=== PATIENT | female | born 1945 | race Caucasian/White ===

== ENCOUNTER → 2018-03-22 10:02 | Outpatient (CLI) | payer MEDICARE, OTHER, SELFPAY ==
--- NOTE | 2018-03-22 10:05 | BI_ITS ---
MAMMOGRAPHY - BILATERAL SCREENING REASON FOR EXAM: Female, 72 years old. Routine annual screening examination. PERTINENT HISTORY: Non-contributory. TECHNIQUE: Digital bilateral breast gris (3D mammographic acquisition) in the CC and MLO projections. 2-D mediolateral oblique (MLO) and craniocaudad (CC) views of both breasts were obtained. CAD: Full Field Digital Mammography with Computer Added Detection was performed. COMPARISON: Comparison is made with prior examination dated March 15, 2017 and March 05, 2016. FINDINGS: Breast Composition: There are scattered areas of fibroglandular density. There are no dominant masses or suspicious calcifications. Stable benign-appearing bilateral axillary lymph nodes. No other significant abnormalities are identified. There has been no significant change since the prior study. BI/SCREENING MAMM (CAD), BILAT IMPRESSION: Stable bilateral screening mammogram. Yearly follow-up mammogram recommended. (A) ASSESSMENT CATEGORY: BIRADS Category 2: Benign. A letter regarding these results will be sent to the patient by the facility within 30 days. Approximately 10% of breast cancers are not detected by mammography. A normal mammogram should not delay biopsy of a clinically suspicious abnormality. [id number] Electronically Signed: Oliver Hernandez MD at 13:55 EDT Tel [phone], Service support ,
== END ==
PROVIDERS: Family Provider Internal Medicine; PCP Internal Medicine; Visit Provider Clinical Nurse Specialist
DX: Z12.31 Encounter for screening mammogram for malignant neoplasm of breast (principal)
CPT/HCPCS: 77063; 77067

== ENCOUNTER 2019-03-02 13:45 | Inpatient (IN) | payer MEDICARE, OTHER, SELFPAY ==
[2019-03-02 13:46] VITALS: BP 122/74; PULSE 80; RESP 16; TEMP 36.9; O2SAT 98; BMI 30.1
--- NOTE | 2019-03-02 15:07 | VDLE_ITS ---
Reason For Study: RLE swelling RIGHT LEFT GSV is normal. CFV is compressible, spontaneous, phasic, CFV is compressible, spontaneous, phasic, competent, and demonstrates normal competent and demonstrates normal augmentation. augmentation. FV is compressible, spontaneous, phasic, competent and demonstrates normal augmentation. POP V is compressible, spontaneous, phasic, competent and demonstrates normal augmentation. T/P Trunk is compressible. PTV is compressible. RT PerV is compressible. NON vascular structure noted just below groin measuring 2.01 cm x 3.28 cm (near site of bug bite). Procedure Exam performed portable in ED. The exam was diagnostic. A preliminary report was called and/or faxed to ED & DR. Chaz Ortega. Interpretation Summary Deep veins of the right lower extremity are patent and compressible segmentally. There is no evidence of right lower extremity deep vein thrombosis. Valvular competence appears intact within the proximal deep venous system on the right . The right great saphenous vein appears patent and compressible segmentally. A non-vascular, hypoechoic structure is noted in the right proximal thigh, measuring 2.01 cm x 3.28 cm. This may represent a seroma. Clinical correlation is advised. Ordering Physician: Chaz Ortega Referring Physician: Olivia Mccall Performed By: Amber Mejia, DEB, RVT
--- NOTE | 2019-03-02 15:29 | ED.VISSUMM ---
- ER Visit Summary Date of Service: 03/02/19 Chief Complaint: Bug bite History of Present Illness: The patient is a 73 F presents after a bug bite. Patient states she was bitten by a bug over a week ago. Patient states that the area opened up a few days ago. Patient was started on Bactrim by her primary care physician. Patient states that 5 days ago she noticed redness and swelling in her right inguinal area. Patient states this is been getting progressively worse. Patient denies any fevers or chills. Patient denies any nausea or vomiting. Patient denies any discharge or drainage. Physical Examination: Vital signs are stable. Patient is afebrile. Patient is in no acute distress. There is some mild edema and erythema in the right inguinal area. There is no fluctuance or any abscess formation. There is no discharge or drainage. The bug bite on the posterior aspect of the right lower leg is healing well. There is no surrounding erythema at this site. Pedal pulses are equal bilaterally. Sensation was intact to light touch in all digits. Capillary refill was less than 2 seconds in all digits. Heart was regular rate and rhythm. Lungs are clear and equal bilaterally. Abdomen is soft and nontender. Bowel sounds are normal. Test Results: CBC shows slight leukocytosis of 15.0. BUN was elevated at 74 and creatinine was 3.43. Patient denies any history of kidney problems. There are no prior results to compare to. Venous duplex of the right lower extremity was obtained. There is no DVT noted. Emergency Department Course and Treatment: Patient was given IV fluids. Patient was given Ancef. Patient was feeling better on reevaluation. I discussed the results with the patient and advised that she be admitted to the hospital for further evaluation. She is agreeable with this. Case was discussed with the hospitalist. Patient will be admitted to the hospital. All questions were answered. Disposition: Admit to hospital Impression: 1. Acute kidney injury 2. Cellulitis right proximal thigh This note was generated with [employer] dictation software. It may contain incorrect words, spelling, and punctuation that were not noted in review of the chart prior to signing ED Disposition - Plan for ED Patient: Disposition: Acute Care Hospital [facility] Diagnosis: Cellulitis and abscess of right lower extremity, Acute kidney injury Referrals: Olivia Mccall MD [Primary Care Provider] -
[2019-03-02 15:48] VITALS: BP 136/78; PULSE 64; RESP 18; TEMP 36.2; O2SAT 99
[2019-03-02 16:00] VITALS: BP 137/78; PULSE 67; RESP 18; TEMP 36.2; O2SAT 99
[2019-03-02] MEDS: 0.9% Normal Saline 1,000 ML 1000 ML IV (16:03)
[2019-03-02 16:17] LABS: Prothrombin Time (Protime)PT. 12.8 SECONDS (11.7-14.9)
[2019-03-02 16:18] LABS: Absolute Lymphocyte Count 1.13 X10^3/uL (0.83-4.51); Absolute Neutrophil Count 12.8 X10^3/uL (2.0-7.7); Basophil# 0.02 X10^3/uL; Basophil% 0.1 % (0-1); Eosinophil# 0.36 X10^3/uL; Eosinophils% 2.4 % (0-5); Hematocrit 40.1 % (37-47); Hemoglobin 13.8 g/dL (12.0-15.0); Lymphocyte # 1.13 X10^3/ul (4.0); Lymphocyte % 7.5 % (19-41); Mean Corp Hgb Conc 34.4 g/dL (32-36); Mean Corpuscular Hgb 31.4 pg (27.0-32.0); Mean Corpuscular Volume 91.3 fL (81-99); Mean Platelet Vol. 11.9 fl (6.2-12.0); Monocyte# 0.59 X10^3/uL; Monocyte% 3.9 % (0-10); NRBC Flagged by Analyzer 0 % (0-5); Neutrophil # 12.82 X10^3/uL (2.7-7.7); Neutrophil % 85.4 % (47-70); POSITIVE MORPHOLOGY YES; Platelet Count 129 K/mm3 (150-450); RBC Distribution Width CV 12.6 % (11.6-14.6); RBC Distribution Width SD 41.8 fl (35.1-43.9); Red Blood Count 4.39 M/mm3 (4.2-5.4)
[2019-03-02 16:32] LABS: Differential Indicated SCAN CRITERIA MET
[2019-03-02 16:50] LABS: Anion Gap 13 (5-15); BUN 74 mg/dL (7-18); BUN/Creat Ratio 21.6 RATIO (10-20); Calcium,Total 8.2 mg/dL (8.5-10.1); Chloride 99 mmol/L (98-107); Creatinine, Serum 3.43 mg/dL (0.55-1.02); EST Glomerular Filtration Rate 14 mL/min (>60); Est Glom Filt Rate - Afr Amer 17 mL/min (>60); Estimated Creatinine Clearance 12.08 ml/min; Glucose 112 mg/dL (74-106); Sodium Level 132 mmol/L (136-145)
[2019-03-02 17:00] VITALS: BP 134/78; PULSE 67; RESP 18; TEMP 36.6; O2SAT 99
[2019-03-02 17:01] LABS: Differential Comment SCANNED
[2019-03-02] MEDS: Cefazolin 1 GM/50 ML BAG IV (18:17)
[2019-03-02 18:20] VITALS: BP 138/74; PULSE 67; RESP 18; TEMP 36.6; TEMP 36.9; O2SAT 99
[2019-03-02 19:05] VITALS: BMI 30.1
[2019-03-02 19:13] VITALS: BP 121/75; PULSE 91; RESP 14; TEMP 36.9; O2SAT 98
[2019-03-02 19:15] VITALS: BMI 30.1
--- NOTE | 2019-03-02 19:41 | PCM.HP.STD ---
Problem List (1) Cellulitis and abscess of right lower extremity Status: Acute (2) Acute kidney injury Status: Acute (3) Hypertension Status: Chronic Qualifiers: Hypertension type: essential hypertension Qualified Code(s): I10 - Essential (primary) hypertension History of Present Illness Date of Admission: 03/02/19 Chief Complaint: Redness of right leg, groin - 1 week The patient is a 73 year old F past medical history of hypertension, who had an insect bite a week ago. The area of the insect bite had some redness and she had follow-up with her primary care doctor 3 days later. She was prescribed Bactrim. She had persistent nausea and vomiting 2 days into her Bactrim. She felt unwell. She also noticed redness and swelling her right inguinal area 5 days prior to admission. She denied any fever or chills. She just did not feel well. She denied any more nausea or vomiting. The last time she had nausea and vomiting was 3 days ago. Vitals in the ED show temperature of 98.4F, heart rate 80, blood pressure 122/74, respiratory rate was 16, SPO2 was 98% on room air. Admitting blood pressure to BC count of 15.0, globin 13.8, platelet 129, sodium is 132, potassium 4.0, chloride 99, bicarbonate 20, BUN 74, creatinine 3.43, no other creatinine to compare with. Duplex ultrasound of the right lower extremity was done in the ED and reportedly no DVT seen. Past Medical History Past Medical History (Chronic Problems): Chronic Problems Hypertension (Chronic) Allergies No Known Allergies Allergy (Verified 03/02/19 13:46) Home Medications: Ambulatory Orders Medication Instructions Recorded Atenolol [Tenormin (beta jackie)] 50 mg PO DAILY 03/02/19 Biotin 1 mg PO DAILY 03/02/19 Citalopram Hydrobromide 40 mg PO DAILY 03/02/19 [Citalopram HBr] Potassium Chloride [Klor-Con 8] 8 meq PO DAILY 03/02/19 Smz/Tmp Ds [Bactrim Ds] 1 tab PO BID 03/02/19 Triamterene/Hydrochlorothiazid 1 tab PO DAILY 03/02/19 [Triamterene-Hctz 37.5-25 mg Tb] Turmeric Root Extract [Turmeric] 500 mg PO DAILY 03/02/19 Psychiatric History: No pertinent psych hx [employer] History: No pertinent [employer] history Lives: Spouse/ Significant Other Smoking Status: Never smoker Tobacco Use: Non-smoker, Secondhand Alcohol: Occasional Drugs: None Review of Systems Constitutional: Denies: Anorexia, Chills, Fever, Weakness, Weight Change, Fatigue Eyes: Denies: Blurred vision, Cataracts, Conjunctivae Inflammation, Double vision, Pain, Redness, Vision Change HEENT: Denies: Head Aches, Hearing Changes, Sinus Congestion, Sinus Drainage Cardiovascular: Denies: Chest Pain, Claudication, Orthopnea, Palpitations, Paroxysmal Noc. Dyspnea Respiratory: Denies: Cough, Hemoptysis, Shortness of breath at rest, Shortness of breath upon exertion, Sputum production Gastrointestinal: Denies: Abdominal Pain, Constipation, Nausea, Vomiting Genitourinary: Denies: Dysuria, Frequency Musculoskeletal: Denies: Joint Pain, Joint Tenderness Skin: Denies: Rash, Wounds Neurological: Denies: Numbness, Tingling, Focal weakness Psychiatric: Denies: Anxiety, Depression, Homicidal Ideations, Suicidal Ideations Endocrine: Denies: Change in Body Habitus, Heat/ Cold Intolerance Hematologic/ Lymphatic: Denies: Easy Bruising, Easy Bleeding VTE Information - Inpt Only VTE Present on Admission: No VTE Pharm Prophylaxis ordered?: Yes Patient Problems: Active and Suspected Problems Cellulitis and abscess of right lower extremity (Acute) Acute kidney injury (Acute) - Physical Exam General: Alert, Oriented x3, Cooperative, No apparent distress HEENT: Atraumatic, PERRLA, EOMI, Normocephalic Oral: Moist Mucosa Neck: Supple Lungs: Clear to auscultation, Normal air movement Cardiovascular: Regular rate, Regular Rhythm, Normal S1, Normal S2, No murmurs Abdomen: Bowel Sounds Present, Soft, Non Tender, Non-Distended, No Hepato-splenomegaly Extremities: No edema Skin: - - redness of the right lower extremity and groin. Scar of the right posterior leg almost healed. Musculoskeletal: No Tenderness to Palpation of Joints or Extremities Lymphatic: No Cervical, Supraclavicular, or Inguinal Adenopathy Neurological: Cranial nerves II-XII grossly intact, Neuro grossly intact Psych/Mental Status: Normal Affect, Appropriate Vital Signs Temp Pulse Resp BP Pulse Ox 98.5 F 91 14 121/75 H 98 03/02/19 19:13 03/02/19 19:13 03/02/19 19:13 03/02/19 19:13 03/02/19 19:13 Oxygen Delivery Method Room Air Weight: 77.11 kg Body Mass Index (BMI) 30.1 Intake and Output for Last 24 Hours 02/28/19 03/01/19 03/02/19 23:59 23:59 23:59 Intake Total 1050 / 1050 Balance 1050 / 1050 Laboratory Tests Past 24 Hrs 03/02/19 03/02/19 03/02/19 15:55 15:55 15:55 WBC 15.0 H RBC 4.39 Hgb 13.8 Hct 40.1 MCV 91.3 MCH 31.4 MCHC 34.4 RDW Std Deviation 41.8 RDW Coeff of Naeem 12.6 Plt Count 129 L MPV 11.9 Immature Gran % (Auto) 0.700 Neut % (Auto) 85.4 H Lymph % (Auto) 7.5 L [place] % (Auto) 3.9 Eos % (Auto) 2.4 Baso % (Auto) 0.1 Absolute Neuts (auto) 12.8 H Absolute Lymphs (auto) 1.13 Nucleated RBC % 0 Differential Comment SCANNED PT 12.8 INR 1.0 Sodium 132 L Potassium 4.0 Chloride 99 Carbon Dioxide 20.0 L Anion Gap 13 BUN 74 H Creatinine 3.43 H Estim Creat Clear Calc 12.08 Est GFR (MDRD) Af Amer 17 L Est GFR (MDRD) Non-Af 14 L BUN/Creatinine Ratio 21.6 H Glucose 112 H Calcium 8.2 L Assessment/Plan All Active Problems Cellulitis and abscess of right lower extremity (Acute) Acute kidney injury (Acute) 73 year old F with past medical history of hypertension, who had an insect bite a week ago comes in with feeling unwell and redness of the right leg and groin. 1. Right leg/groin cellulitis, with 1 SIRS criteria, WBC 15, no sepsis on admission failed outpatient therapy with Bactrim, given 1 dose of IV cefazolin in the ED Plan: Admit to Medr, monitor vitals closely, elevate right lower extremity, continue IV cefazolin 1g Q8 2. RODRIGUE, likely pre-renal from recent nausea/vomiting, unknown previous creatinine, Admitting creatinine was 3.43 Plan: Ultrasound the kidneys and bladder, urine studies, IV fluids, repeat blood work in a.m. 3. Hypertension, controlled, continue atenolol 4. Depression, on Celexa, stable, continue same meds 5. DVT PPx- Heparin SC Code Visit Inpatient E&M: 16221 Init Hosp L2
--- NOTE | 2019-03-02 21:08 | US_ITS ---
STUDY: RENAL ULTRASOUND - COMPLETE REASON FOR EXAM: Female, 73 years old. Acute renal failure TECHNIQUE: Ultrasound evaluation of the kidneys was performed with real-time and static tompkins-scale imaging. COMPARISON: None. FINDINGS: RIGHT KIDNEY: Normal location of the right kidney, which is normal in size. The right kidney measures 9.8 x 5.4 x 5.3 cm. There is a normal cortex of the right kidney. The renal cortex measures 1.2 cm. There is no right renal mass or cyst. There are no right renal calculi. There is no right hydronephrosis. DISTAL RIGHT URETER: There is non-visualization of the distal right ureter. There is no demonstrated right ureterovesical junction calculus. There is no demonstrated right ureteral jet. LEFT KIDNEY: Normal location of the left kidney, which is normal in size. The left kidney measures 9.9 x 5.0 x 4.2 cm. There is a normal cortex of the left kidney. The renal cortex measures 1.1 cm. There is no left renal mass or cyst. There are no left renal calculi. There is no left hydronephrosis. DISTAL LEFT URETER: There is non-visualization of the distal left ureter. There is no demonstrated left ureterovesical junction calculus. There is no demonstrated left ureteral jet. BLADDER: The distended urinary bladder has a volume of 123.77 ml. There is a normal wall thickness of the distended urinary bladder. There is no demonstrated mass within the urinary bladder. There are no demonstrated bladder calculi. US/Kidney and Bladder IMPRESSION: Normal ultrasound of the kidneys and urinary bladder. Electronically Signed: David Sandoval MD at 23:10 EDT Tel , Service support ,
[2019-03-02] MEDS: 0.9% Normal Saline 1,000 ML 100 ML IV (21:23)
[2019-03-02] MEDS: Heparin Injection (Vial) 5,000 UNIT/ML VIAL 5000 UNIT SC (21:23)
[2019-03-02 22:35] LABS: Urine Sodium 35 mmol/L (Not Establ.)
[2019-03-02 22:41] LABS: Urea Nitrogen, Urine 290 mg/dL (NO RANGE EST.)
[2019-03-03 02:06] VITALS: BP 140/77; PULSE 69; RESP 16; TEMP 36.6; O2SAT 92
[2019-03-03] MEDS: Heparin Injection (Vial) 5,000 UNIT/ML VIAL 5000 UNIT SC ×3 (06:19→21:09)
[2019-03-03 06:40] LABS: Absolute Lymphocyte Count 1.33 X10^3/uL (0.83-4.51); Absolute Neutrophil Count 9.9 X10^3/uL (2.0-7.7); Basophil# 0.09 X10^3/uL; Basophil% 0.7 % (0-1); Eosinophil# 0.47 X10^3/uL; Eosinophils% 3.7 % (0-5); Hematocrit 40.7 % (37-47); Hemoglobin 13.7 g/dL (12.0-15.0); Lymphocyte # 1.33 X10^3/ul (4.0); Lymphocyte % 10.5 % (19-41); Mean Corp Hgb Conc 33.7 g/dL (32-36); Mean Corpuscular Hgb 32.1 pg (27.0-32.0); Mean Corpuscular Volume 95.3 fL (81-99); Mean Platelet Vol. 11.7 fl (6.2-12.0); Monocyte# 0.62 X10^3/uL; Monocyte% 4.9 % (0-10); NRBC Flagged by Analyzer 0 % (0-5); Neutrophil % 78.4 % (47-70); POSITIVE COUNT YES; Platelet Count 99 K/mm3 (150-450); RBC Distribution Width CV 12.6 % (11.6-14.6); RBC Distribution Width SD 44.4 fl (35.1-43.9); Red Blood Count 4.27 M/mm3 (4.2-5.4); White Blood Count 12.6 K/mm3 (4.4-11.0)
[2019-03-03 06:46] LABS: Differential Indicated SCAN CRITERIA MET
[2019-03-03 07:03] LABS: Differential Comment SCAN; Platelet Estimate SLT DEC (ADEQ)
[2019-03-03 07:11] LABS: ALB/GLOB Ratio 0.6 RATIO (0.9-2.4); AST(SGOT) 21 U/L (15-37); Alanine Aminotransfer ALT/SGPT 23 U/L (13-56); Albumin, Serum 2.1 g/dL (3.2-5.0); Alkaline Phosphatase 148 U/L (45-117); Anion Gap 9 (5-15); BUN 58 mg/dL (7-18); BUN/Creat Ratio 26.4 RATIO (10-20); Calcium,Total 8.1 mg/dL (8.5-10.1); Chloride 111 mmol/L (98-107); EST Glomerular Filtration Rate 23 mL/min (>60); Est Glom Filt Rate - Afr Amer 28 mL/min (>60); Estimated Creatinine Clearance 18.01 ml/min; Globulin 3.3 g/dL (2.2-4.2); Glucose 94 mg/dL (74-106); Potassium 3.4 mmol/L (3.5-5.1); Protein, Total 5.4 g/dL (6.4-8.2); Sodium Level 140 mmol/L (136-145)
[2019-03-03 08:00] VITALS: BP 123/73; PULSE 66; RESP 18; TEMP 36.6; O2SAT 95
[2019-03-03] MEDS: 0.9% Normal Saline 1,000 ML 100 ML IV ×2 (08:06→18:20)
[2019-03-03] MEDS: Atenolol 50 MG Tablet PO (08:43)
[2019-03-03] MEDS: Citalopram 40 MG TABLET PO (08:43)
--- NOTE | 2019-03-03 12:48 | CM.UR ---
RN CM Assessment Introduced role of RN CM to patient. Patient is alert and able to participate in RN CM Assessment. Care providers, pharmacy, and demographics verified. No family at bedside. Presentation: bug bite w/site worsening Admit Dx: cellulitis and RODRIGUE Re-Admit: No Barriers/Issues: with dementia; has some caregiver stress. PCP: Dr. Mccall Preferred Pharmacy: [facility] Insurance: [facility] and MMO Rx Benefit: Yes, denies any concerns LNOK: , Tae Living Arrangements: lives in [address] [place] [address] with elevator. ADL?s: Independent Transportation: self DME: None DME co: Delbert Preciado is a close friend. Through him. HHC: None SNF: None Goal: To return home. Denies any needs for her. States she is going to need help with . Discussed adult day care vs private duty aides. DC PLAN: Home, no needs anticipated. Iens Trinidad RN, CCM.
--- NOTE | 2019-03-03 14:31 | CASEMGMT ---
Social Work Referral: Resources Informant: Maude ct manager Met with patient in room. Patient requesting resources for dementia/care assistance as patient spouse as dementia and things are getting harder. Patient stating that there are no current financial limitations. This social media assistant providing patient with list of private duty aides, director environmental pet information, and [employer] adult day care info. This social media assistant also able to provide support for patient. Patient identifying no needs for self. All questions answered. Argenis CRUZ, SIMONE
--- NOTE | 2019-03-03 17:17 | PN_ITS ---
Patient Problems: Active and Suspected Problems Cellulitis and abscess of right lower extremity (Acute) Acute kidney injury (Acute) Subjective: Patient was seen and examined today, she has an area of persistent redness in the right groin area, patient states she feels improved over admission, I talked to the patient's covering physician from [facility] today, her Danay creatinine was 1.16, her creatinine last month was 1.1. I think the patient may have had acute kidney injury secondary to use of Bactrim. I will continue the patient's IV fluids at 100 cc/h. - Physical Exam General: Alert, Oriented x3, Cooperative, No apparent distress, Well developed HEENT: Atraumatic, PERRLA, EOMI, Normocephalic Oral: Moist Mucosa Neck: Supple, Trachea Midline, Thyroid Normal Size and Texture Lungs: Clear to auscultation, Normal air movement, No rhonchi, No wheeze, No rales Cardiovascular: Regular rate, Regular Rhythm, Normal S1, Normal S2, No murmurs Abdomen: Bowel Sounds Present, Soft, Non Tender, Non-Distended Extremities: No clubbing, No cyanosis, No edema, Capillary Refill Less than 3 Seconds Skin: No breakdown, Rash Present - over area of 6X6 cm right groin area Musculoskeletal: No Tenderness to Palpation of Joints or Extremities Neurological: Cranial nerves II-XII grossly intact, Neuro grossly intact, Sensory exam intact to light touch and pain, Coordination normal Psych/Mental Status: Normal Affect, Appropriate, Alert and oriented to time, place, person, mood and affect Vital Signs Temp Pulse Resp BP Pulse Ox 97.9 F 66 18 123/73 H 95 03/03/19 08:00 03/03/19 08:00 03/03/19 08:00 03/03/19 08:00 03/03/19 08:00 Oxygen Delivery Method Room Air Weight: 78.9 kg Body Mass Index (BMI) 30.1 Intake and Output for Last 24 Hours 03/01/19 03/02/19 03/03/19 23:59 23:59 23:59 Intake Total 1050 / 1050 3018.33 / 3018.33 Output Total 1900 / 1900 Balance 1050 / 1050 1118.33 / 1118.33 Laboratory Tests Past 24 Hrs 08/23/19 08/23/19 08/23/19 22:20 22:20 22:20 WBC RBC Hgb Hct MCV MCH MCHC RDW Std Deviation RDW Coeff of Naeem Plt Count MPV Immature Gran % (Auto) Neut % (Auto) Lymph % (Auto) [place] % (Auto) Eos % (Auto) Baso % (Auto) Absolute Neuts (auto) Absolute Lymphs (auto) Nucleated RBC % Differential Comment Platelet Estimate Sodium Potassium Chloride Carbon Dioxide Anion Gap BUN Creatinine Estim Creat Clear Calc Est GFR (MDRD) Af Amer Est GFR (MDRD) Non-Af BUN/Creatinine Ratio Glucose Calcium Total Bilirubin AST ALT Alkaline Phosphatase Total Protein Albumin Globulin Albumin/Globulin Ratio Ur Random Sodium 35 Urine Creatinine 16.80 Urine Urea Nitrogen 290 03/03/19 03/03/19 06:20 06:20 WBC 12.6 H RBC 4.27 Hgb 13.7 Hct 40.7 MCV 95.3 MCH 32.1 H MCHC 33.7 RDW Std Deviation 44.4 H RDW Coeff of Naeem 12.6 Plt Count 99 L MPV 11.7 Immature Gran % (Auto) 1.800 H Neut % (Auto) 78.4 H Lymph % (Auto) 10.5 L [place] % (Auto) 4.9 Eos % (Auto) 3.7 Baso % (Auto) 0.7 Absolute Neuts (auto) 9.9 H Absolute Lymphs (auto) 1.33 Nucleated RBC % 0 Differential Comment SCAN Platelet Estimate SLT DEC Sodium 140 Potassium 3.4 L Chloride 111 H Carbon Dioxide 20.0 L Anion Gap 9 BUN 58 H Creatinine 2.20 H Estim Creat Clear Calc 18.01 Est GFR (MDRD) Af Amer 28 L Est GFR (MDRD) Non-Af 23 L BUN/Creatinine Ratio 26.4 H Glucose 94 Calcium 8.1 L Total Bilirubin 0.40 AST 21 ALT 23 Alkaline Phosphatase 148 H Total Protein 5.4 L Albumin 2.1 L Globulin 3.3 Albumin/Globulin Ratio 0.6 L Ur Random Sodium Urine Creatinine Urine Urea Nitrogen Medical Necessity - Tobacco Use Smoking Status: Never smoker Tobacco Use: Non-smoker, Secondhand Assessment/Plan All Active Problems Cellulitis and abscess of right lower extremity (Acute) Acute kidney injury (Acute) #1 cellulitis of the right groin area-failed outpatient treatment, continue IV Ancef #2 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
[2019-03-03 18:06] VITALS: BP 126/74; PULSE 65; RESP 18; TEMP 36.7; O2SAT 97
[2019-03-03 19:24] VITALS: BP 139/70; PULSE 67; RESP 16; TEMP 37.2; O2SAT 98
[2019-03-04 04:02] VITALS: BP 145/72; PULSE 69; RESP 18; TEMP 37; O2SAT 94
[2019-03-04] MEDS: 0.9% Normal Saline 1,000 ML 100 ML IV (04:07)
[2019-03-04] MEDS: Heparin Injection (Vial) 5,000 UNIT/ML VIAL 5000 UNIT SC (05:24)
[2019-03-04 06:06] LABS: Mean Corp Hgb Conc 32.4 g/dL (32-36); Mean Corpuscular Hgb 31.2 pg (27.0-32.0); Mean Corpuscular Volume 96.1 fL (81-99); POSITIVE COUNT YES; POSITIVE MORPHOLOGY YES; Platelet Count 131 K/mm3 (150-450); RBC Distribution Width CV 12.9 % (11.6-14.6); RBC Distribution Width SD 45.5 fl (35.1-43.9); Red Blood Count 3.85 M/mm3 (4.2-5.4); White Blood Count 12.1 K/mm3 (4.4-11.0)
[2019-03-04 06:07] LABS: Differential Indicated MANUAL DIFF
[2019-03-04 06:12] LABS: BUN 35 mg/dL (7-18); Creatinine, Serum 1.38 mg/dL (0.55-1.02); Estimated Creatinine Clearance 28.72 ml/min; Glucose 91 mg/dL (74-106)
[2019-03-04 06:13] LABS: Anion Gap 8 (5-15); BUN/Creat Ratio 25.4 RATIO (10-20); Calcium,Total 8.1 mg/dL (8.5-10.1); Chloride 111 mmol/L (98-107); EST Glomerular Filtration Rate 40 mL/min (>60); Est Glom Filt Rate - Afr Amer 48 mL/min (>60); Potassium 3.1 mmol/L (3.5-5.1); Sodium Level 144 mmol/L (136-145)
[2019-03-04 06:39] LABS: Eosinophil 5 % (0-5); Lymphocyte 16 % (19-41); Metamyelocyte 2 % (0-1); Monocyte 3 % (0-10); Neutrophil-Band 7 % (0-5); Neutrophil-Segmented 67 % (47-70); Platelet Estimate SLT DEC (ADEQ); Red Cell Morphology NORM C+C NORMAL (NORM C&C); Total Cells Counted 100 (MANUAL DIFF)
[2019-03-04 06:41] LABS: Absolute Lymphocyte Count 1.94 X10^3/uL (0.83-4.51)
[2019-03-04 08:15] VITALS: BP 135/77; PULSE 60; RESP 18; TEMP 36.6; O2SAT 98
[2019-03-04] MEDS: Atenolol 50 MG Tablet PO (10:01)
[2019-03-04] MEDS: Citalopram 40 MG TABLET PO (10:01)
--- NOTE | 2019-03-04 11:03 | DCINST_ITS ---
- Discharge Diagnoses Current Active Problems: Current Active and Chronic Problems Cellulitis and abscess of right lower extremity (Acute) Acute kidney injury (Acute) Hypertension (Chronic) You will use the following diet at home:: No restrictions Your food should be the consistency of: Regular Your liquids should be the consistency of: Regular/Thin Discharge Activity: Return to Normal Activity Weight Bearing Status: Full weight bearing Allergies/Adverse Reactions: Allergies No Known Allergies Allergy (Verified 03/02/19 13:46) Medications to take at Discharge Atenolol [Tenormin (beta jackie)] 50 mg PO DAILY 03/02/19 Biotin 1 mg PO DAILY 03/02/19 Citalopram Hydrobromide [Citalopram HBr] 40 mg PO DAILY 03/02/19 Turmeric Root Extract [Turmeric] 500 mg PO DAILY 03/02/19 Cefdinir [Omnicef [equiv]] 600 mg PO DAILY #14 cap 03/04/19 Losartan Potassium [Cozaar] 50 mg PO DAILY #90 tab 03/04/19 The following prescriptions were given: Losartan Potassium [Cozaar] 50 mg PO DAILY #90 tab Transmission Status: Pending to [id number] Cefdinir [Omnicef [equiv]] 600 mg PO DAILY #14 cap Transmission Status: Pending to [id number] Primary Care Physician: Olivia Mccall MD [Primary Care Provider] - Please follow up with your Primary Care Physician in: this week-get your BMP rechecked this week Test Results: Test results from this visit will be discussed in further detail at your follow- up appointment, if applicable.
[2019-03-07 09:09] LABS: Pathologist Review Reviewed
--- NOTE | 2019-03-07 20:20 | DS.PCM_ITS ---
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 She had been treated as an outpatient with Bactrim, she had had bouts of nausea and vomiting approximately 3 days prior. Patient had been on antibiotics a total of 4 days. Labs showed an elevated white blood cell count at 15, patient's creatinine was elevated at 3.43, BUN was 74. Emanation of the patient's right groin area and right proximal thigh area reveals it to be reddened indurated and warm. Patient was not felt to be septic however she was felt to have a cellulitis that failed outpatient treatment. She was also felt to have acute kidney injury-etiology was uncertain but may have been related to her back to administration on a backdrop of mild dehydration from vomiting several days previously. Patient was admitted to [place] [address], given IV antibiotics, and labs were monitored. It was noted that the patient's creatinine dropped during her hospital stay and she improved. She was also given supplemental potassium for low potassium. On 03/04/2019, patient was seen and examined: On examination she appeared in good health and spirits. Vital signs as documented. Skin warm and dry, there was noted to be a red rash in patient's right groin and proximal thigh area. Neck without JVD. Lungs clear. Heart exam notable for regular rhythm, normal sounds and absence of murmurs, rubs or gallops. Abdomen unremarkable and without evidence of organomegaly, masses, or abdominal aortic enlargement. Extremities nonedematous. Neuro: Cranial nerves II through XII are grossly intact, no focal motor deficits were noted, sensation to light touch and pinprick is intact. Psych: Patient is alert and oriented x3, she does not appear anxious or depressed On 03/04/2019, patient was seen and examined and felt to be in stable condition for discharge home. - Physical Exam Vital Signs Temp Pulse Resp BP Pulse Ox 97.8 F 60 18 135/77 H 98 03/04/19 08:15 03/04/19 08:15 03/04/19 08:15 03/04/19 08:15 03/04/19 08:15 Oxygen Delivery Method Room Air Weight: 79.6 kg Body Mass Index (BMI) 30.1 Laboratory Tests Past 24 Hrs 03/04/19 05:35 Diff Path Review Reviewed Discharge Activity: Return to Normal Activity Weight Bearing Status: Full weight bearing Home Medications: Medications to take at Discharge Atenolol [Tenormin (beta jackie)] 50 mg PO DAILY 03/02/19 Biotin 1 mg PO DAILY 03/02/19 Citalopram Hydrobromide [Citalopram HBr] 40 mg PO DAILY 03/02/19 Turmeric Root Extract [Turmeric] 500 mg PO DAILY 03/02/19 Cefdinir [Omnicef [equiv]] 600 mg PO DAILY #14 cap 03/04/19 Losartan Potassium [Cozaar] 50 mg PO DAILY #90 tab 03/04/19 Following Prescrptions Were Given to Patient: Losartan Potassium [Cozaar] 50 mg PO DAILY #90 tab Transmission Status: Received by [id number] Cefdinir [Omnicef [equiv]] 600 mg PO DAILY #14 cap Transmission Status: Received by [id number] Primary Care Physician: Olivia Mccall MD [Primary Care Provider] - Please follow up with your Primary Care Physician in: this week-get your BMP rechecked this week Disposition: Home Minutes spent on discharge:: 32 Patient Condition:: Stable Medical Necessity - Tobacco Use Smoking Status: Never smoker Tobacco Use: Non-smoker, Secondhand Meaningful Use Info Meaningful Use Diagnoses (Choose all that apply): None applicable Code Visit Inpatient E&M: 34438 Disch Hosp
== END 2019-03-04 11:48 | disposition home or self-care (01) | DRG 603 ==
LOC: ED 18:23 → MS3 18:26
PROVIDERS: Admitting Provider Internal Medicine; Emergency Provider Emergency Medicine; Family Provider Internal Medicine; PCP Internal Medicine; Referring Provider Internal Medicine; Visit Provider Internal Medicine
DX: L03.314 Cellulitis of groin (principal); N17.9 Acute kidney failure, unspecified; N12 Tubulo-interstitial nephritis, not specified as acute or chronic; I10 Essential (primary) hypertension; F32.9 Major depressive disorder, single episode, unspecified; T36.8X5A Adverse effect of other systemic antibiotics, initial encounter
CPT/HCPCS: 36415; 76770; 80048; 80053; 82570; 84300; 84540; 85025; 85610; 93971; 99285; J7030

== ENCOUNTER → 2019-05-04 09:57 | Outpatient (CLI) | payer MEDICARE, OTHER, SELFPAY ==
--- NOTE | 2019-05-04 10:05 | BI_ITS ---
MAMMOGRAPHY - BILATERAL SCREENING REASON FOR EXAM: Female, 73 years old. Routine annual screening examination. PERTINENT HISTORY: Non-contributory. TECHNIQUE: Digital bilateral breast ronn (3D mammographic acquisition) in the CC and MLO projections. 2-D mediolateral oblique (MLO) and craniocaudad (CC) views of both breasts were obtained. CAD: Full Field Digital Mammography with Computer Added Detection was performed. COMPARISON: Comparison is made with prior study dated March 22, 2018 and March 15, 2017. FINDINGS: Breast Composition: There are scattered areas of fibroglandular density. There are no dominant masses or suspicious calcifications. Stable small benign-appearing bilateral axillary lymph nodes. No other significant abnormalities are identified. There has been no significant change since the prior study. BI/SCREEN MAMM (CAD) W/RONN BILAT IMPRESSION: Stable bilateral screening mammogram. Yearly follow-up mammogram recommended. (A) ASSESSMENT CATEGORY: BIRADS Category 2: Benign. A letter regarding these results will be sent to the patient by the facility within 30 days. Approximately 10% of breast cancers are not detected by mammography. A normal mammogram should not delay biopsy of a clinically suspicious abnormality. [id number] Electronically Signed: Oliver Hernandez, at 13:27 EDT , Service support ,
== END ==
PROVIDERS: Family Provider Internal Medicine; PCP Internal Medicine; Referring Provider Nurse Practitioner; Visit Provider Nurse Practitioner
DX: Z12.31 Encounter for screening mammogram for malignant neoplasm of breast (principal)
CPT/HCPCS: 77063; 77067

== ENCOUNTER → 2019-06-25 08:58 | Outpatient (CLI) | payer MEDICARE, OTHER, SELFPAY ==
[2019-06-25 08:54] VITALS: BMI 30.1
--- NOTE | 2019-06-25 09:02 | RAD_ITS ---
STUDY: X-RAY - LEFT FOOT CLINICAL: Female, 73 years old. Pain and swelling with redness TECHNIQUE: 3 view(s) of the foot. COMPARISON: None. FINDINGS: Normal talus, calcaneus, and tarsal bones. Normal visualized subtalar, talonavicular, calcaneocuboid, tarsal and tarsometatarsal articulations. Normal metatarsi. Normal metatarsophalangeal joint of the great toe. Normal tibial and fibular sesamoid bones. Normal interphalangeal joint of the great toe. Normal phalanges of the great toe. Normal second through fifth metatarsophalangeal joints. Normal interphalangeal joints and phalanges of the lesser toes. There is soft tissue swelling of the forefoot. RAD/Foot min 3 Views IMPRESSION: Forefoot soft tissue swelling without demonstrated fracture. Electronically Signed: Hamlet Espitia MD (Brooks) at 22:32 EST , Service support ,
== END ==
PROVIDERS: Family Provider Internal Medicine; PCP Internal Medicine; Referring Provider Physician Assistant; Visit Provider Physician Assistant
DX: M79.675 Pain in left toe(s) (principal); M79.89 Other specified soft tissue disorders
CPT/HCPCS: 73630

== ENCOUNTER → 2020-06-23 10:25 | Outpatient (CLI) | payer MEDICARE, OTHER, SELFPAY ==
[2019-06-25 08:54] VITALS: BMI 30.1
--- NOTE | 2020-06-23 10:32 | BI_ITS ---
MAMMOGRAPHY - BILATERAL SCREENING REASON FOR EXAM: Female, 74 years old. Routine annual screening examination. PERTINENT HISTORY: Non-contributory. TECHNIQUE: Digital bilateral breast ronn (3D mammographic acquisition) in the CC and MLO projections. 2-D mediolateral oblique (MLO) and craniocaudad (CC) views of both breasts were obtained. CAD: Full Field Digital Mammography with Computer Added Detection was performed. COMPARISON: Comparison is made with prior study dated 05/04/2019 and 03/22/2018. FINDINGS: Breast Composition: The breasts are heterogeneously dense, which may obscure small masses. There are no dominant masses or suspicious calcifications. Stable benign-appearing bilateral axillary lymph nodes. No other significant abnormalities are identified. There has been no significant change since the prior study. BI/SCREEN MAMM (CAD) W/RONN BILAT IMPRESSION: Stable bilateral screening mammogram. Yearly follow-up mammogram recommended. (A) ASSESSMENT CATEGORY: BIRADS Category 2: Benign. A letter regarding these results will be sent to the patient by the facility within 30 days. Approximately 10% of breast cancers are not detected by mammography. A normal mammogram should not delay biopsy of a clinically suspicious abnormality. [id number] Electronically Signed: Oliver Hernandez, at 12:11 EST , Service support ,
== END ==
PROVIDERS: PCP Internal Medicine; Referring Provider Nurse Practitioner Primary Care; Visit Provider Nurse Practitioner Primary Care
DX: Z12.31 Encounter for screening mammogram for malignant neoplasm of breast (principal)
CPT/HCPCS: 77063; 77067

== ENCOUNTER 2020-09-03 11:44 | Outpatient (RCR) | payer MEDICARE, OTHER, SELFPAY ==
[2019-06-25 08:54] VITALS: BMI 30.1
== END 2020-09-03 23:59 ==
LOC: IMMUN 11:44
PROVIDERS: PCP Internal Medicine; Referring Provider Family Medicine; Visit Provider Family Medicine
DX: Z23 Encounter for immunization (principal)
CPT/HCPCS: 0011A; 0012A; 91301

== ENCOUNTER 2021-07-28 08:40 | Outpatient (CLI) | payer MEDICARE, OTHER, SELFPAY ==
--- NOTE | 2021-07-28 08:43 | BI_ITS ---
MAMMOGRAPHY - BILATERAL SCREENING REASON FOR EXAM: Female, 75 years old. Routine annual screening examination. PERTINENT HISTORY: Non-contributory. TECHNIQUE: Digital bilateral breast ronn (3D mammographic acquisition) in the CC and MLO projections. 2-D mediolateral oblique (MLO) and craniocaudad (CC) views of both breasts were obtained. CAD: Full Field Digital Mammography with Computer Added Detection was performed. COMPARISON: Comparison is made with prior study dated 06/23/2020 and 05/04/2019. FINDINGS: Breast Composition: The breasts are heterogeneously dense, which may obscure small masses. There are no dominant masses or suspicious calcifications. No other significant abnormalities are identified. There has been no significant change since the prior study. BI/SCRN MAMM (CAD)W/RONN BILAT IMPRESSION: Stable bilateral screening mammogram. Yearly follow-up mammogram recommended. (A) ASSESSMENT CATEGORY: BIRADS Category 1: Negative. A letter regarding these results will be sent to the patient by the facility within 30 days. Approximately 10% of breast cancers are not detected by mammography. A normal mammogram should not delay biopsy of a clinically suspicious abnormality. [id number] Electronically Signed: Oliver Hernandez MD at 11:04 EST , Service support ,
--- NOTE | 2021-07-28 09:17 | BD_ITS ---
STUDY: DUAL ENERGY X-RAY ABSORPTIOMETRY / DXA REASON FOR EXAM: Female, 75 years old. Z780. The patient is postmenopausal. TECHNIQUE: Bone Mineral Density (BMD) measurements of lumbar spine and bilateral hips were obtained. COMPARISON: Comparison is made with prior study dated 01/17/2013. FINDINGS: Lumbar Spine (L1-L4): g/cm2 (1.203) / T-score (1.4) / Z-score (3.9) Findings are suggestive of normal bone density with a low fracture risk. Left Femur Total: g/cm2 (0.906) / T-score (-0.3) / Z-score (1.5) Left Femoral Neck: g/cm2 (0.797) / T-score (-0.5) / Z-score (1.6) Right Femur Total: g/cm2 (0.934) / T-score (-0.1) / Z-score (1.8) Right Femoral Neck: g/cm2 (0.810) / T-score (-0.4) / Z-score (1.8) The T-Scores on the most recent prior examination were: Lumbar Spine (L1-L4): There has been improvement of bone density since the previous examination. Left Femur Total: which represents a worsening of 10.9%. Right Femur Total: which represents a worsening of 6.1%. BD/Dexa Bone Density Study IMPRESSION: The patient is considered normal as outlined below according to World Reza Organization (WHO) criteria with a low fracture risk. There has been worsening of bone density since the previous examination. Reference Information: The T-score is the number of standard deviations above or below the standard which is normal for young adults at their peak bone mineral density. The World Health Organization (WHO) interprets the T-scores as follows: Above -1 Normal bone density Between -1 and -2.5 Osteopenia Equal to / or below -2.5 Osteoporosis As a practical clinical guideline, osteopenia may be graded as follows: Mild -1 through -1.5 Moderate -1.6 through -2.0 Severe -2.1 through -2.4 The Z-score is the number of standard deviations above or below age-matched controls. A Z-score of less than -1.5 would be considered abnormal. References: 1. NIH Osteoporosis and Related Bone Diseases www osteo.org 2. International Society for Clinical Densitometry www iscd.org 3. National Osteoporosis Foundation www nof.org Electronically Signed: Oliver Hernandez MD at 9:05 EST , Service support ,
== END 2021-07-28 23:59 | disposition short-term general hospital (02) ==
PROVIDERS: PCP Internal Medicine; Referring Provider Internal Medicine; Visit Provider Internal Medicine
DX: Z12.31 Encounter for screening mammogram for malignant neoplasm of breast (principal); Z78.0 Asymptomatic menopausal state
CPT/HCPCS: 77063; 77067; 77080

== ENCOUNTER 2022-05-25 07:57 | Outpatient (RCR) | payer SELFPAY | END 2022-06-09 23:59 | LOC: NS 07:57 | PROVIDERS: PCP Internal Medicine | DX: Z71.3 Dietary counseling and surveillance (principal); E66.9 Obesity, unspecified | CPT/HCPCS: 97802 ==

== ENCOUNTER 2022-07-20 09:19 | Outpatient (RCR) | payer SELFPAY | END 2022-08-10 23:59 | LOC: NS 09:19 | PROVIDERS: PCP Internal Medicine | DX: Z00.00 Encounter for general adult medical examination without abnormal findings (principal) | CPT/HCPCS: 97803 ==

== ENCOUNTER → 2022-07-29 | Outpatient (CLI) | payer MEDICARE, OTHER, SELFPAY ==
--- NOTE | 2022-07-29 08:59 | BI_ITS ---
MAMMOGRAPHY - BILATERAL SCREENING REASON FOR EXAM: Female, 76 years old. Routine annual screening examination. PERTINENT HISTORY: Non-contributory. TECHNIQUE: Digital bilateral breast ronn (3D mammographic acquisition) in the CC and MLO projections. 2-D mediolateral oblique (MLO) and craniocaudad (CC) views of both breasts were obtained. CAD: Full Field Digital Mammography with Computer Added Detection was performed. COMPARISON: Comparison is made with prior study dated 07/28/2021 and 06/23/2020. FINDINGS: Breast Composition: The breasts are heterogeneously dense, which may obscure small masses. Since prior study, there has been an increase in the number of microcalcifications in the upper deep lateral aspect of the right breast. The patient will be recalled for additional views including magnification spot views. No other significant abnormalities are identified. BI/SCRN MAMM (CAD)W/RONN BILAT IMPRESSION: Increase in the number of microcalcifications in the upper outer quadrant of the right breast as described. The patient will be recalled for additional views including magnification spot views. Recall Side: Right Breast ASSESSMENT CATEGORY: BIRADS Category 0: Incomplete. Need additional imaging evaluation. A letter regarding these results will be sent to the patient by the facility within 30 days. Approximately 10% of breast cancers are not detected by mammography. A normal mammogram should not delay biopsy of a clinically suspicious abnormality. [id number] Electronically Signed: Oliver Hernandez MD at 10:06 EST ,
== END | disposition home or self-care (01) ==
LOC: OPBI 08:57
PROVIDERS: PCP Internal Medicine; Visit Provider Clinical Nurse Specialist
DX: Z12.31 Encounter for screening mammogram for malignant neoplasm of breast (principal)
CPT/HCPCS: 77063; 77067

== ENCOUNTER → 2022-08-16 | Outpatient (CLI) | payer MEDICARE, OTHER, SELFPAY ==
--- NOTE | 2022-08-16 08:56 | BI_ITS ---
MAMMOGRAPHY - UNILATERAL DIAGNOSTIC: RIGHT BREAST REASON FOR EXAM: Female, 76 years old. Abnormal screening mammogram. PERTINENT HISTORY: Non-contributory. TECHNIQUE: Compression magnification spot views of the right breast were obtained. CAD: Full Field Digital Mammography with Computer Added Detection was performed. COMPARISON: Comparison is made with prior study dated 07/29/2022. FINDINGS: The cluster microcalcification was once again seen. A biopsy is recommended for further evaluation. BI/DIAG MAMM W/CAD, UNILAT IMPRESSION: Cluster microcalcification as described. Biopsy recommended. ASSESSMENT CATEGORY: BIRADS Category 4: Suspicious - Biopsy Should Be Considered. A letter regarding these results will be sent to the patient by the facility within 30 days. Approximately 10% of breast cancers are not detected by mammography. A normal mammogram should not delay biopsy of a clinically suspicious abnormality. Electronically Signed: Oliver Hernandez MD at 14:04 EST ,
== END | disposition home or self-care (01) ==
LOC: OPBI 08:52
PROVIDERS: PCP Internal Medicine; Visit Provider Clinical Nurse Specialist
DX: R92.8 Other abnormal and inconclusive findings on diagnostic imaging of breast (principal)
CPT/HCPCS: 77065

== ENCOUNTER 2022-08-17 11:32 | Outpatient (RCR) | payer SELFPAY | END 2022-09-07 23:59 | LOC: NS 11:32 | PROVIDERS: PCP Internal Medicine | DX: Z71.3 Dietary counseling and surveillance (principal) | CPT/HCPCS: 97803 ==

== ENCOUNTER 2022-08-26 12:22 | Outpatient (CLI) | payer MEDICARE, OTHER, SELFPAY ==
--- NOTE | 2022-08-26 12:45 | BRBX_PTH ---
PATIENT: NATE CEJA LOC: [facility] U#:[id number] AGE/SX: 76/F ROOM: RE08/26/[address]: Dr. Nicki Strong MD : 1945 BED: DIS: 08/26/2022 SPEC #: [id number] RECD: 08/26/22 13:16 STATUS: ZAFAR REHanny #: [id number] ASHLEY: 08/26/22 12:[address]: Nicki Strong DEPT: SURGICAL PATHOLOGY RECD BY: Britany Cao ENTERED: 08/26/22 14:03 SP TYPE: BREAST BX OT DR: Dr. Olivia Mccall MD Tissues: Right breast, NOS Procedures: Surgery Specimen Level IV HEADER OPERATION: Right breast stereotactic biopsy PRE-OP DIAGNOSIS: Clustered microcalcifications right breast upper outer quadrant TISSUE SUBMITTED: Right breast core tissue ISCHEMIC TIME: 1 minute FIXATION TIME: 7 hours MICROSCOPIC DIAGNOSIS Right breast, microcalcifications upper outer quadrant, stereotactic core biopsy: Hyalinized fibroadenoma with focal calcifications. Negative for atypia or malignancy. See comment. SHERRY:yamileth 08/27/2022 COMMENT Correlation with clinical, radiologic findings and appropriate follow up are necessary. MICROSCOPIC DESCRIPTION Slides are reviewed. GROSS DESCRIPTION Received in fixative is one container labeled with the patient's name and designated right breast. The specimen consists of multiple elongated fragments of olsen-yellow fibroadipose tissue that in aggregate measure 5.0 x 3.0 x 0.3 cm. The entire specimen is submitted in two cassettes. / SHERRY:yamileth 08/26/2022 TC:1 CPT: 23809
--- NOTE | 2022-08-26 12:59 | PCM.OPRPT ---
Report of Operation Date of Procedure: 08/26/22 Pre-Operative Diagnosis: Right breast microcalcifications Post-Operative Diagnosis: Same Surgery/Procedure Performed:: Stereotactic guided right breast biopsy Surgeon: Nicki Strong Type of Anesthesia: Local Specimen's removed: Right breast upper outer microcalcifications Estimated Blood Loss (mL): < 10 cc Description of Procedure: Procedure: Right stereotactic core biopsy Indications: 76year-old female with microcalcifications in the upper outer of the right breast. Risk benefits were discussed the patient and she elected to proceed with stereotactic core biopsy with clip placement Description of procedure: Patient was brought into the mammography suite and laid prone on the stereotactic table. A timeout was completed verifying correct patient, procedure, site, specially, prior to beginning procedure. The right breast was prepped and draped in usual sterile fashion and using local anesthesia was obtained with 1% lidocaine with epi. Patient's right breast was positioned and placed into compression. Initial film showed calcifications are in the center of the compression paddle. 15? views were then taken. The calcifications were localized. The left breast was prepped draped in usual sterile fashion. An 8-gauge mammotome was set up according to the digital coordinates. The tract of the mammotome was anesthetized with local anesthesia and an incision was made with the 11 blade scalpel at the entry site. The mammotome was advanced to the prefire state. Pre-prior films were checked and verified. The mammotome was fired. Post fire films were also checked and verified. Biopsies were taken from 10:00 to 3:00. The specimen was x-rayed and the majority of calcifications were within the specimen. Mammotome clip was placed at the 12 o'clock position. The mammotome was removed from the breast. An additional films were taken which showed the majority of calcifications were removed and a clip was in place. Pressure was held for hemostasis. Once hemostasis was assured the wound was dressed with Steri-Strips and OpSite. The patient tolerated the procedure well and was discharged from the mammography suite good condition. complications: none Complications none
== END 2022-08-26 23:59 | disposition home or self-care (01) ==
LOC: BIRAD 12:24
PROVIDERS: PCP Internal Medicine; Visit Provider Surgery
DX: D24.1 Benign neoplasm of right breast (principal); R92.0 Mammographic microcalcification found on diagnostic imaging of breast
CPT/HCPCS: 19081; 88305; J7050; A4648

== ENCOUNTER → 2023-09-02 | Outpatient (CLI) | payer MEDICARE, OTHER, SELFPAY ==
--- NOTE | 2023-09-02 07:04 | BI_ITS ---
MAMMOGRAPHY - BILATERAL SCREENING REASON FOR EXAM: Female, 77 years old. Routine annual screening examination. PERTINENT HISTORY: Non-contributory. Prior right stereotactic breast biopsy. TECHNIQUE: Digital bilateral breast ronn (3D mammographic acquisition) in the CC and MLO projections. 2-D mediolateral oblique (MLO) and craniocaudad (CC) views of both breasts were obtained. CAD: Full Field Digital Mammography with Computer Added Detection was performed. COMPARISON: Comparison is made with prior examination dated July 29, 2022) separate 2022. FINDINGS: Breast Composition: The breasts are heterogeneously dense, which may obscure small masses. There are no dominant masses or suspicious calcifications. Dictation clip marker is seen in the deep upper lateral aspect of the right breast at the site of previous microcalcifications. The number of microcalcifications at the decreased. Stable small benign-appearing bilateral axillary lymph nodes. No other significant abnormalities are identified. There has been no significant change since the prior study. BI/SCRN MAMM (CAD)W/RONN BILAT IMPRESSION: Stable bilateral screening mammogram. Status post stereotactic biopsy of the cluster of microcalcifications in the deep upper lateral aspect of the right breast. Yearly follow-up mammogram recommended. (A) ASSESSMENT CATEGORY: BIRADS Category 2: Benign. A letter regarding these results will be sent to the patient by the facility within 30 days. Approximately 10% of breast cancers are not detected by mammography. A normal mammogram should not delay biopsy of a clinically suspicious abnormality. [id number] Electronically Signed: Oliver Hernandez MD at 8:40 EST ,
--- OUTSIDE RECORDS SUMMARY | 2023-09-02 07:15 | XMS RPT_ITS | CCD ---
Author Name Unknown Address [address] [place] [address] Organization [facility] Care Team Providers Care Copier Field Service Technician Name Role Phone Margo Mccall MD Primary Care Provider Chetan Chao MD Unavailable Chetan Chao MD Unavailable Marya PT, Eileen Unavailable Margo Mccall MD Primary Care Provider Chetan Chao MD Unavailable [phone] Chetan Chao MD Unavailable TALAMPAS, MARGO D Primary Care Unavailable CARLOS SAINI Attending Unavailable TALAMPAS, MARGO D Referring Unavailable TALAMPAS, MARGO D Primary Care Unavailable FREDDY FREEMAN Attending Unavailable TALAMPAS, MARGO D Attending Unavailable TALAMPAS, MARGO D Primary Care Unavailable MAY, LAUREN Referring Unavailable TALAMPAS, MARGO D Primary Care Unavailable TALAMPAS, MARGO D Primary Care Unavailable CARLOS SAINI Attending Unavailable MAY, LAUREN Attending Unavailable TALAMPAS, MARGO D Primary Care Unavailable TALAMPAS, MARGO D Primary Care Unavailable MAY, LAUREN Referring Unavailable Allergies Allergy Classification Reported Allergen(s) Allergy Type Date of Onset Reaction(s) Facility (20 sources) Dust; Translations: [DUST] Allergy to substance 12-17-19 15 Other: See Comments [facility] (20 sources) Sulfamethoxazole / Trimethoprim; Translations: [SULFAMETHOXAZOLE-TR IMETHOPRIM] Drug Allergy 03-08-20 19 Other: See Comments [facility] Work Phone: (20 sources) Tree; Translations: [TREES] Allergy to substance 12-17-19 Other: See Comments [facility] Medications Current Medications Medication Drug Class(es) Dates Sig (Normalized) Sig (Original) amoxicillin 875 mg / clavulanate 125 mg oral tablet (3 sources) Penicillin-class Antibacterial Start: 10-20-2021 End: 10-27-2021 take 1 tablet by mouth twice daily amoxicillin-clav ulanic acid (AUGMENTIN) 875-125 mg per tablet Take 1 tablet by mouth twice daily for 3 days. 6 tablet 0 10/23/2021 10/26/2021 Active Completed/Discontinued Medications Medication Drug Class(es) Dates Sig (Normalized) Sig (Original) [id number] 200 actuat albuterol 0.09 mg/actuat metered dose inhaler (9 sources) beta2-Adrenergic Agonist Start: 07-19-2022 End: 05-20-2023 take 2 puff(s) by inhalation every six hours as needed for wheezing albuterol HFA (PROVENTIL HFA, VENTOLIN HFA) 90 mcg/actuation inhaler Inhale 2 Puffs as instructed every 6 hours as needed for wheezing/shortness of breath. 1 Each 1 07/19/2022 05/20/2023 Discontinued Problems Active Problems Problem Classification Problem Date Documented Date Episodic/Chronic Administrative/social admission (2 sources) Caregiver role strain; Translations: [Dependent relative needing care at home] Episodic Anxiety disorders (20 sources) Generalized anxiety disorder; Translations: [Generalized anxiety disorder] 08-01-2019 Chronic Cataract (1 source) Bilateral cataracts; Translations: [Unspecified cataract] Chronic Chronic kidney disease (20 sources) Chronic kidney disease stage 3; Translations: [CKD (chronic kidney disease) stage 3, GFR 30-59 ml/min] Onset: 12-10-2017 12-10-2017 Chronic Disorders of lipid metabolism (4 sources) Hyperlipidemia; Translations: [Hyperlipidemia, unspecified] Onset: 05-17-2023 Chronic Essential hypertension (20 sources) Essential hypertension; Translations: [Essential (primary) hypertension] 09-03-2015 Chronic Nutritional deficiencies (6 sources) Vitamin D deficiency; Translations: [Vitamin D deficiency, unspecified] Onset: 05-17-2023 Chronic Osteoarthritis (20 sources) Osteoarthritis of left knee joint; Translations: [Unilateral primary osteoarthritis, left knee] Onset: 08-01-2019 08-01-2019 Chronic Other and unspecified benign neoplasm (1 source) Multiple benign melanocytic nevi ; Translations: [Melanocytic nevi, unspecified] Episodic Other and unspecified benign neoplasm (1 source) Senile angioma; Translations: [Hemangioma of skin and subcutaneous tissue] Episodic Other congenital anomalies (20 sources) Congenital ichthyosis of skin; 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, unspecified] 06-16-2007 Chronic Other connective tissue disease (20 sources) History of total knee arthroplasty; Translations: [Presence of left artificial knee joint] Onset: 09-20-2019 09-21-2019 Chronic Other connective tissue disease (2 sources) Dupuytren contracture of right palm; Translations: [Palmar fascial fibromatosis [Dupuytren]] Episodic Other connective tissue disease (1 source) Triggering of digit; Translations: [Trigger finger, right middle finger] Episodic Other hematologic conditions (1 source) Macrocytosis - no anemia; Translations: [Other specified diseases of blood and blood-forming organs] Chronic Other non-epithelial cancer of skin (1 source) History of malignant neoplasm of skin excluding melanoma; Translations: [Personal history of other malignant neoplasm of skin] Episodic Other nutritional; endocrine; and metabolic disorders (3 sources) Hypercalcemia; Translations: [Hypercalcemia] Chronic Other nutritional; endocrine; and metabolic disorders (1 source) Body mass index 30+ - obesity; Translations: [Obesity, unspecified] 05-19-2023 Chronic Other screening for suspected conditions (not mental disorders or infectious disease) (2 sources) Mammography abnormal; Translations: [Other abnormal and inconclusive findings on diagnostic imaging of breast] Episodic Other skin disorders (1 source) Seborrheic keratosis; Translations: [Other seborrheic keratosis] Episodic Other skin disorders (1 source) Solar lentigo; Translations: [Other melanin hyperpigmentation] Episodic Other upper respiratory disease (20 sources) Allergic rhinitis; Translations: [Allergic rhinitis, unspecified] 05-14-2016 Chronic Other upper respiratory infections (1 source) Chronic sinusitis; Translations: [Chronic sinusitis, unspecified] 08-14-2023 Chronic Other upper respiratory infections (1 source) Acute maxillary sinusitis; Translations: [Acute maxillary sinusitis, unspecified] Episodic Residual codes; unclassified (1 source) Family history of malignant melanoma; Translations: [Family history of malignant neoplasm of other organs or systems] Episodic Retinal detachments; defects; vascular occlusion; and retinopathy (9 sources) Degenerative disorder of macula ; Translations: [Unspecified macular degeneration] Onset: 11-15-2022 Chronic Past or Other Problems Problem Classification Problem Date Documented Da te Episodic/Chronic Acute and unspecified renal failure (20 sources) Acute injury of kidney; Translations: [Acute kidney failure, unspecified] Onset: 03-08-2019 03-08-2019 Episodic Cancer of rectum and anus (20 sources) History of malignant neoplasm of rectum; Translations: [Personal history of other malignant neoplasm of rectum, rectosigmoid junction, and anus] Onset: 08-01-2019 08-01-2019 Episodic Melanomas of skin (20 sources) History of malignant melanoma of the skin; Translations: [Personal history of malignant melanoma of skin] Onset: 02-14-2013 02-14-2013 Episodic Other aftercare (20 sources) Patient encounter status; Translations: [Other care home (current) drug therapy] Onset: 01-03-2013 01-03-2013 Episodic Other connective tissue disease (1 source) Palmar fascial fibromatosis [Dupuytren]; Translations: [Dupuytren's contracture of right hand] Onset: 12-02-2022 Episodic Other gastrointestinal disorders (20 sources) Groin mass; Translations: [Other intra-abdominal and pelvic swelling, mass and lump] Onset: 09-25-2014 09-25-2014 Episodic Other nutritional; endocrine; and metabolic disorders (4 sources) Body mass index 25-29 - overweight; Translations: [Body mass index (BMI) 28.0-28.9, adult] Onset: 05-28-2017 08-01-2019 Episodic Other nutritional; endocrine; and metabolic disorders (16 sources) Overweight in adulthood with body mass index of 25 or more but less than 30; Translations: [Body mass index (BMI) 28.0-28.9, adult] Onset: 05-28-2017 08-01-2019 Episodic Residual codes; unclassified (20 sources) Bilateral lower limb edema; Translations: [Localized edema] Onset: 08-01-2019 08-01-2019 Episodic Skin and subcutaneous tissue infections (20 sources) Cellulitis of groin; Translations: [Cellulitis of groin] Onset: 03-08-2019 03-08-2019 Episodic Results Test Name Value Interpretation Reference Range Facil ity Vital Signs Date Time Vital Sign Value Performing Clinician James bansal 08-14-2023 14:41-0500 Body temperature 97.81 [degF] Loreta Pendlebury ROOFING APPLICATOR.LUMP INSPECTOR Work Phone: [facility] 08-14-2023 14:41-0500 Body weight 82.46 kg Loreta Pendlebury ROOFING APPLICATOR.LUMP INSPECTOR Work Phone: [facility] 08-14-2023 14:41-0500 Diastolic blood pressure 82 mm[Hg] Loreta Pendlebury ROOFING APPLICATOR.LUMP INSPECTOR Work Phone: [facility] 08-14-2023 14:41-0500 Heart rate 61 /min Loreta Pendlebury ROOFING APPLICATOR.LUMP INSPECTOR Work Phone: [facility] 08-14-2023 14:41-0500 Respiratory rate 18 /min Loreta Pendlebury ROOFING APPLICATOR.LUMP INSPECTOR Work Phone: [facility] 08-14-2023 14:41-0500 SaO2% (BldA) [Mass fraction] 100 % Loreta Pendlebury ROOFING APPLICATOR.LUMP INSPECTOR Work Phone: [facility] 08-14-2023 14:41-0500 Systolic blood pressure 136 mm[Hg] Loreta Pendlebury ROOFING APPLICATOR.LUMP INSPECTOR Work Phone: [facility] 05-19-2023 09:04-0500 Body weight 81.65 kg Lauren May ROOFING APPLICATOR.LAND PLANNER Work Phone: [facility] 05-19-2023 09:04-0500 Diastolic blood pressure 81 mm[Hg] Lauren May ROOFING APPLICATOR.LAND PLANNER Work Phone: [facility] 05-19-2023 09:04-0500 Heart rate 61 /min Lauren May ROOFING APPLICATOR.LAND PLANNER Work Phone: [facility] 05-19-2023 09:04-0500 Respiratory rate 16 /min Lauren May ROOFING APPLICATOR.LAND PLANNER Work Phone: [facility] 05-19-2023 09:04-0500 Systolic blood pressure 121 mm[Hg] Lauren May ROOFING APPLICATOR.LAND PLANNER Work Phone: [facility] 12-02-2022 08:42-0400 Body height 156.2 cm Freddy Freeman MD Work Phone: [facility] 12-02-2022 08:42-0400 Body weight 76.2 kg Freddy Freeman MD Work Phone: [facility] 11-15-2022 07:57-0400 Body height 156.2 cm Margo Mccall MD Work Phone: [facility] 11-15-2022 07:57-0400 Body temperature 97.59 [degF] Margo Mccall MD Work Phone: [facility] 11-15-2022 07:57-0400 Body weight 77.2 kg Margo Mccall MD Work Phone: [facility] 11-15-2022 07:57-0400 Diastolic blood pressure 84 mm[Hg] Margo Mccall MD Work Phone: [facility] 11-15-2022 07:57-0400 Heart rate 66 /min Margo Mccall MD Work Phone: [facility] 11-15-2022 07:57-0400 Respiratory rate 16 /min Margo Mccall MD Work Phone: [facility] 11-15-2022 07:57-0400 SaO2% (BldA) [Mass fraction] 99 % Margo Mccall MD Work Phone: [facility] 11-15-2022 07:57-0400 Systolic blood pressure 114 mm[Hg] Margo Mccall MD Work Phone: [facility] 08-13-2022 16:43-0500 Body temperature 97.59 [degF] Lauren May ROOFING APPLICATOR.LAND PLANNER Work Phone: [facility] 08-13-2022 16:43-0500 Body weight 78.02 kg Lauren May ROOFING APPLICATOR.LAND PLANNER Work Phone: [facility] 08-13-2022 16:43-0500 Diastolic blood pressure 78 mm[Hg] Lauren May ROOFING APPLICATOR.LAND PLANNER Work Phone: [facility] 08-13-2022 16:43-0500 Heart rate 63 /min Lauren May ROOFING APPLICATOR.LAND PLANNER Work Phone: [facility] 08-13-2022 16:43-0500 Respiratory rate 16 /min Lauren May ROOFING APPLICATOR.LAND PLANNER Work Phone: [facility] 08-13-2022 16:43-0500 Systolic blood pressure 110 mm[Hg] Lauren May ROOFING APPLICATOR.LAND PLANNER Work Phone: [facility] 04-29-2022 14:03-0400 Body weight 81.19 kg Lauren May ROOFING APPLICATOR.LAND PLANNER Work Phone: [facility] 04-29-2022 14:03-0400 Diastolic blood pressure 82 mm[Hg] Lauren May ROOFING APPLICATOR.LAND PLANNER Work Phone: [facility] 04-29-2022 14:03-0400 Heart rate 67 /min Lauren May ROOFING APPLICATOR.LAND PLANNER Work Phone: [facility] 04-29-2022 14:03-0400 Respiratory rate 16 /min Lauren May ROOFING APPLICATOR.LAND PLANNER Work Phone: [facility] 04-29-2022 14:03-0400 SaO2% (BldA) [Mass fraction] 98 % Lauren May ROOFING APPLICATOR.LAND PLANNER Work Phone: [facility] 04-29-2022 14:03-0400 Systolic blood pressure 124 mm[Hg] Lauren May ROOFING APPLICATOR.LAND PLANNER Work Phone: [facility] 10-23-2021 07:23-0400 Body weight 76.2 kg Lauren May ROOFING APPLICATOR.LAND PLANNER Work Phone: [facility] 10-23-2021 07:23-0400 Diastolic blood pressure 80 mm[Hg] Lauren May ROOFING APPLICATOR.LAND PLANNER Work Phone: [facility] 10-23-2021 07:23-0400 Heart rate 60 /min Lauren May ROOFING APPLICATOR.LAND PLANNER Work Phone: [facility] 10-23-2021 07:23-0400 Respiratory rate 16 /min Lauren May ROOFING APPLICATOR.LAND PLANNER Work Phone: [facility] 10-23-2021 07:23-0400 Systolic blood pressure 122 mm[Hg] Lauren Posadass ROOFING APPLICATOR.LAND PLANNER Work Phone: [facility] 10-20-2021 12:16-0400 Body temperature 98.49 [degF] Kairshma Athy PA-C Work Phone: [facility] 10-20-2021 12:16-0400 Body weight 78.47 kg Karishma Athy PA-C Work Phone: [facility] 10-20-2021 12:16-0400 Diastolic blood pressure 80 mm[Hg] Karishma Athy PA-C Work Phone: [facility] 10-20-2021 12:16-0400 Heart rate 68 /min Karishma Athy PA-C Work Phone: [facility] 10-20-2021 12:16-0400 Respiratory rate 18 /min Karishma Athy PA-C Work Phone: [facility] 10-20-2021 12:16-0400 SaO2% (BldA) [Mass fraction] 100 % Karishma Athy PA-C Work Phone: [facility] 10-20-2021 12:16-0400 Systolic blood pressure 118 mm[Hg] Karishma Athy PA-C Work Phone: [facility] Encounters Encounter Date Encounter Type Care Provider Facility Start: 08-14-2023 End: 08-14-2023 ambulatory MARGO MCCALL Facility:[facility] Start: 08-14-2023 End: 08-14-2023 Office outpatient visit 25 minutes Loreta Schmitt ROOFING APPLICATOR.LUMP INSPECTOR Work Phone: [facility] Procedures Date Procedure Procedure Detail Performing Clinician Start: 12-02-2022 Injection 1 tendon sheath/ligament aponeurosis Freddy Freeman MD Work Phone: Start: 04-17-2021 Adult depression scr eening assessment Lauren May ROOFING APPLICATOR.LAND PLANNER Work Phone: Start: 08-01-2019 Antibody screen Plan of Treatment Date Care Activity Detail Author Start: 11-12-2026 Urine microalbumin profile [facility] Start: 08-11-2025 DIABETES SCREEN DIABETES SCREEN [facility] Start: 08-11-2025 Diabetes Screening Diabetes Screening [facility] Start: 04-28-2025 DIABETES SCREEN DIABETES SCREEN [facility] Start: 05-19-2024 BP Controlled (<130/80) BP Controlled (<130/80) [facility] Start: 04-17-2024 DIABETES SCREEN DIABETES SCREEN [facility] Start: 12-31-2023 LIPID SCREEN LIPID SCREEN [facility] Start: 11-16-2023 ANNUAL PCP TEAM CHRONIC DISEASE VISIT ANNUAL PCP TEAM CHRONIC DISEASE VISIT [facility] Start: 11-07-2023 End: 05-07-2024 25-hydroxyvitamin D3 [Mass/volume] in Serum or Plasma VITAMIN D 25 HYDROXY Lab Routine Primary hypertension Obesity (BMI 30-39.9) Vitamin D deficiency Expected: 11/07/2023 (Approximate), Expires: 05/07/2024 [facility] Work Phone: Immunizations Immunization Date Immunization Notes Care Provider [facility] 04-27-2023 COVID-19 vaccine, ag e 12+ yr, season (PFIZER-BIONTECH) Margo Mccall MD Work Phone: [facility] Work Phone: 05-21-2022 COVID-19 booster vaccine, age 12+ yr, bivalent (MODERNA) Margo Mccall MD Work Phone: [facility] Work Phone: 04-13-2021 influenza, high dose seasonal, preservative-free Lauren May ROOFING APPLICATOR.LAND PLANNER Work Phone: [facility] Work Phone: 10-04-2021 influenza virus vacc ine, unspecified formulation Margo Mccall MD Work Phone: [facility] 04-24-2019 influenza virus vacc ine, unspecified formulation Lauren May ROOFING APPLICATOR.LAND PLANNER Work Phone: [facility] 05-01-2018 zoster vaccine recombinant Lauren May ROOFING APPLICATOR.LAND PLANNER Work Phone: [facility] 11-03-2017 zoster vaccine recombinant Lauren May ROOFING APPLICATOR.LAND PLANNER Work Phone: [facility] Work Phone: 05-10-2017 influenza, high dose seasonal, preservative-free Lauren May ROOFING APPLICATOR.LAND PLANNER Work Phone: [facility] 11-12-2016 tetanus toxoid, redu eran diphtheria toxoid, and acellular pertussis vaccine, adsorbed Lauren May ROOFING APPLICATOR.LAND PLANNER Work Phone: [facility] 2016 zoster vaccine, live Lauren B man ROOFING APPLICATOR.LAND PLANNER Work Phone: [facility] 12-13-2014 pneumococcal conjuga te vaccine, 13 valent Lauren May ROOFING APPLICATOR.LAND PLANNER Work Phone: [facility] Work Phone: 06-17-2014 zoster vaccine, live Lauren B man ROOFING APPLICATOR.LAND PLANNER Work Phone: [facility] 05-10-2014 influenza, seasonal, injectable Lauren May ROOFING APPLICATOR.LAND PLANNER Work Phone: [facility] 05-10-2013 influenza virus vacc ine, unspecified formulation Lauren May ROOFING APPLICATOR.LAND PLANNER Work Phone: [facility] Work Phone: 06-12-2012 pneumococcal polysaccharide vaccine, 23 valent Lauren May ROOFING APPLICATOR.LAND PLANNER Work Phone: [facility] 05-10-2012 influenza virus vacc ine, unspecified formulation Lauren May ROOFING APPLICATOR.LAND PLANNER Work Phone: [facility] 10-09-2004 diphtheria and tetan us toxoids, adsorbed for pediatric use Lauren May ROOFING APPLICATOR.LAND PLANNER Work Phone: [facility] Work Phone: Payers Date Payer Category Payer Medicare [id number] 2019 Unknown MMO MMO MEDICARE SUPPLEMENT [id number] 2019-Present [phone] [address] [place] [address] Indemnity [id number] 2019 Unknown MMO MMO MEDICARE SUPPLEMENT [id number] 2019-Present [phone] [address] [place] [address] Indemnity [id number] 2010 Medicare MEDICARE MEDICAR E A AND B [id number] 2010-Present [phone] [place] [address] Medicare [id number] 2010 Medicare MEDICARE MEDICAR E A AND B [id number] 2010-Present [phone] [place] [address] Medicare [id number] 2010 Medicare [id number] Social History Date Type Detail Facility Start: 06-19-2013 Tobacco smoking stat us DEIS Never smoked tobacco [facility] Work Phone: Start: 05-05-2021 End: 11-15-2022 Alcohol intake Current non-drinker of alcohol (finding) [facility] Start: 08-23-2019 End: 07-16-2022 History SDOH Financial 5 [facility] Start: 08-23-2019 End: 07-16-2022 History SDOH Food Worry 1 [facility] Start: 08-23-2019 End: 07-16-2022 History SDOH Transport Med 2 [facility] Start: 1945 Sex Assigned At Not on file [facility] Start: 09-22-2021 End: 04-29-2022 Exposure to SARS-CoV-2 (event) Not sure [facility] Start: 06-19-2013 Tobacco use and exposure Smoke less tobacco non-user [facility] Work Phone: Start: 04-28-2022 End: 07-16-2022 History SDOH Social Connections Get Together 4 [facility] Start: 04-28-2022 End: 07-16-2022 History SDOH Social Connections Protestant 3 [facility] Start: 04-28-2022 History SDOH Social Connections Membership 98 [facility] Start: 04-28-2022 History SDOH Physica l Activity DPW 0 [facility] Start: 12-02-2022 End: 05-19-2023 Alcohol intake Current drinker of alcohol (finding) [facility] Start: 12-02-2022 [facility] Start: 07-16-2022 End: 12-02-2022 History of Social function [facility] Start: 07-16-2022 End: 12-02-2022 Social connection and isolation panel [facility] Do you belong to any clubs or organizations such as tenriism groups, unions, fraternal or athletic groups, or school groups? Yes [facility] Are you now , , , , never or living with a partner? [facility] How often to you hav e a drink containing alcohol? 2-3 time sa week [facility] How many standard dr inks containing alcohol do you have on a typical day? 1 or 2 [facility] How often do you hav e 6 or more drinks on 1 occasion? Never [facility] How hard is it for y ou to pay for the very basics like food, housing, medical care, and heating Not hard at all [facility] Do you feel stress - tense, restless, nervous, or anxious, or unable to sleep at night because your mind is troubled all the time - these days [OSQ] To some extent [facility] (I/We) worried ivory er (my/our) food would run out before (I/we) got money to buy more. Never true [facility] In the past 12 month s, was there a time when you were not able to pay the mortgage or rent on time? No [facility] Medical Equipment Procedure Code Equipment Code Equipment Origin al Text Equipment Identifier Dates Cement Simplex P Bone Radiopaque Full Dose Sterile - [id number] Start: 08-22-2019 Tibial Bearing Insert Size 3 9mm [id number] Start: 08-22-2019 Component Triath rosa 3 Femoral Cruciate Retain Cemented Knee Left - [id number] Start: 08-22-2019 Component Triath rosa 29mm X3 9mm Patellar Asymmetric Knee - [id number] Start: 08-22-2019 Baseplate Triath rosa 3 Tibial Primary Cement Knee - [id number] Start: 08-22-2019 Clinical Notes 06-12-2012 to 08-23-2023 Telephone Encounter - Dolores Youngblood LPN - 08/23/2023 3:10 PM ESTTelephone Encounter - Ebony Peterson LPN - 08/18/2023 11:57 AM Loreta Carson APRN.LUMP INSPECTOR - 08/14/2023 2:44 PM EST Note Date & Type Note Facility 08-23-2023 Miscellaneous Notes Spoke to Amaya, states that is correct, we have not discussed sciatica . She declines an appt to evaluate for, will just pay out of pocket . Dolores Youngblood LPN No answer. Left message for patient to call office and ask to speak to a nurse regarding PT order. We have no record of sciatica being discussed Check with patient See if needs seen to get order for PT for sciatica. See if she had diagnosis given elsewhere by an outside of [facility] provider. . Catie from [facility] calling patient had called wanting to schedule physical therapy for sciatica. Patient has no order, may need to be seen by PCP. Was given patient phone number by PT person. Please advise documented in this encounter [facility] 08-14-2023 Note HNO ID: [id number] Author: LORETA SCHMITT APRN.LUMP INSPECTOR Service: ? Author Type: Nurse Practitioner Type: Progress Notes Filed: 08/14/2023 15:10 Note Text: Subjective HPI Nontoxic-appearing female presents urgent care chief complaint cough sinus pressure ear pain. Duration of symptoms 2 weeks. Associated symptoms listed above. Most prominent symptom today is sinus pressure. Has not used any OTC medications today. Denies any significant pain. Does have transient ear pain. Denies any fever body aches chills productive cough chest pain shortness of breath pleuritic pain hemoptysis nausea vomiting abdominal pain change in bowel or bladder habits. Past medical history prescription medication use and allergies reviewed. 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 Hatch; surgery Dr. Calvo through [facility] Trochanteric bursitis of left hip 06/12/2012 Unspecified essential hypertension PAST SURGICAL HISTORY Procedure Laterality Date PAST SURGICAL HISTORY OF STATUS POST ANTERIOR PROCTOSIGMOIDECTOMY ALLERGIES Bactrim [Sulfamethoxazole-Trimethoprim], Dust, and Trees MEDICATIONS carvedilol (COREG) 12.5 mg tablet Take 1 tablet by mouth two times a day with meals. citalopram (CELEXA) 40 mg tablet Take 1 tablet by mouth once daily. spironolactone (ALDACTONE) 25 mg tablet Take 1 tablet by mouth two times a day. Cholecalciferol, Vitamin D3, 50 mcg (2,000 unit) cap Take 2 capsules by mouth once daily. Fluocinolone-Hydroq.-Tretinoin (TRI-EDWINA) 0.01-4-0.05 % Apply a thin layer, pea sized amount to face once daily. Start every third night, then increase to every other night, and then nightly as tolerated. vit C/E/Zn/coppr/lutein/zeaxan (PRESERVISION AREDS-2 ORAL) Take by mouth. turmeric root extract 500 mg cap Take by mouth. loratadine (CLARITIN) 10 mg tablet Take 1 tablet by mouth once daily. (Patient not taking: Reported on 07/19/2023) FAMILY HISTORY Problem Relation Age of Onset Diabetes Mother Hypertension Mother other (hypothyroidism) Mother Coronary Artery Disease Father other (hypothyroidism) Daughter Social History Tobacco Use Smoking status: Never Smokeless tobacco: Never Vaping Use Vaping Use: Never used Substance Use Topics Alcohol use: Yes Comment: Occasional Drug use: Never BP 136/82 Pulse 61 Temp 36.6 ?C (97.8 ?F) (Tympanic) Resp 18 Wt 82.5 kg (181 lb 12.8 oz) SpO2 100% BMI 33.79 kg/m? Review of Systems Constitutional: Negative for chills, fever and malaise/fatigue. HENT: Positive for congestion, ear pain and sinus pain. Negative for ear discharge and sore throat. Eyes: Negative for blurred vision, pain, discharge and redness. Respiratory: Positive for cough. Negative for hemoptysis, sputum production, shortness of breath, wheezing and stridor. Cardiovascular: Negative for chest pain. Gastrointestinal: Negative for abdominal pain, diarrhea, nausea and vomiting. Musculoskeletal: Negative for myalgias. Skin: Negative for itching and rash. Neurological: Negative for dizziness and headaches. Objective Physical Exam Constitutional: General: She is not in acute distress. Appearance: She is not diaphoretic. HENT: Head: Normocephalic. Jaw: No trismus, tenderness, swelling or pain on movement. Right Ear: Tympanic membrane, ear canal and external ear normal. Left Ear: Tympanic membrane, ear canal and external ear normal. Nose: Congestion present. Right Sinus: Maxillary sinus tenderness present. Left Sinus: Maxillary sinus tenderness present. Mouth/Throat: Mouth: Mucous membranes are moist. Pharynx: Oropharynx is clear. Uvula midline. No pharyngeal swelling, oropharyngeal exudate, posterior oropharyngeal erythema or uvula swelling. Eyes: Conjunctiva/sclera: Conjunctivae normal. Pupils: Pupils are equal, round, and reactive to light. Cardiovascular: Rate and Rhythm: Normal rate and regular rhythm. Heart sounds: Normal heart sounds. Pulmonary: Effort: Pulmonary effort is normal. No tachypnea, accessory muscle usage or respiratory distress. Breath sounds: Normal breath sounds. No stridor. No wheezing, rhonchi or rales. Abdominal: General: There is no distension. Palpations: Abdomen is soft. Tenderness: There is no abdominal tenderness. There is no guarding or rebound. Musculoskeletal: Cervical back: Normal range of motion and neck supple. No edema, erythema, rigidity or tenderness. No pain with movement. Normal range of motion. Lymphadenopathy: Cervical: No cervical adenopathy. Skin: General: Skin is warm and dry. Neurological: Mental Status: She is dre (more content not included)... [facility] 08-14-2023 History of Present illness Narrative Subjective HPI Nontoxic-appearing female presents urgent care chief complaint cough sinus pressure ear pain. Duration of symptoms 2 weeks. Associated symptoms listed above. Most prominent symptom today is sinus pressure. Has not used any OTC medications today. Denies any significant pain. Does have transient ear pain. Denies any fever body aches chills productive cough chest pain shortness of breath pleuritic pain hemoptysis nausea vomiting abdominal pain change in bowel or bladder habits. Past medical history prescription medication use and allergies reviewed. 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 Hatch; surgery Dr. Calvo through [facility] Trochanteric bursitis of left hip 06/12/2012 Unspecified essential hypertension PAST SURGICAL HISTORY Procedure Laterality Date PAST SURGICAL HISTORY OF STATUS POST ANTERIOR PROCTOSIGMOIDECTOMY ALLERGIES Bactrim [Sulfamethoxazole-Trimethoprim], Dust, and Trees MEDICATIONS carvedilol (COREG) 12.5 mg tablet Take 1 tablet by mouth two times a day with meals. citalopram (CELEXA) 40 mg tablet Take 1 tablet by mouth once daily. spironolactone (ALDACTONE) 25 mg tablet Take 1 tablet by mouth two times a day. Cholecalciferol, Vitamin D3, 50 mcg (2,000 unit) cap Take 2 capsules by mouth once daily. Fluocinolone-Hydroq.-Tretinoin (TRI-EDWINA) 0.01-4-0.05 % Apply a thin layer, pea sized amount to face once daily. Start every third night, then increase to every other night, and then nightly as tolerated. vit C/E/Zn/coppr/lutein/zeaxan (PRESERVISION AREDS-2 ORAL) Take by mouth. turmeric root extract 500 mg cap Take by mouth. loratadine (CLARITIN) 10 mg tablet Take 1 tablet by mouth once daily. (Patient not taking: Reported on 07/19/2023) FAMILY HISTORY Problem Relation Age of Onset Diabetes Mother Hypertension Mother other (hypothyroidism) Mother Coronary Artery Disease Father other (hypothyroidism) Daughter Social History Tobacco Use Smoking status: Never Smokeless tobacco: Never Vaping Use Vaping Use: Never used Substance Use Topics Alcohol use: Yes Comment: Occasional Drug use: Never BP 136/82 Pulse 61 Temp 36.6 C (97.8 F) (Tympanic) Resp 18 Wt 82.5 kg (181 lb 12.8 oz) SpO2 100% BMI 33.79 kg/m Review of Systems Constitutional: Negative for chills, fever and malaise/fatigue. HENT: Positive for congestion, ear pain and sinus pain. Negative for ear discharge and sore throat. Eyes: Negative for blurred vision, pain, discharge and redness. Respiratory: Positive for cough. Negative for hemoptysis, sputum production, shortness of breath, wheezing and stridor. Cardiovascular: Negative for chest pain. Gastrointestinal: Negative for abdominal pain, diarrhea, nausea and vomiting. Musculoskeletal: Negative for myalgias. Skin: Negative for itching and rash. Neurological: Negative for dizziness and headaches. Objective Physical Exam Constitutional: General: She is not in acute distress. Appearance: She is not diaphoretic. HENT: Head: Normocephalic. Jaw: No trismus, tenderness, swelling or pain on movement. Right Ear: Tympanic membrane, ear canal and external ear normal. Left Ear: Tympanic membrane, ear canal and external ear normal. Nose: Congestion present. Right Sinus: Maxillary sinus tenderness present. Left Sinus: Maxillary sinus tenderness present. Mouth/Throat: Mouth: Mucous membranes are moist. Pharynx: Oropharynx is clear. Uvula midline. No pharyngeal swelling, oropharyngeal exudate, posterior oropharyngeal erythema or uvula swelling. Eyes: Conjunctiva/sclera: Conjunctivae normal. Pupils: Pupils are equal, round, and reactive to light. Cardiovascular: Rate and Rhythm: Normal rate and regular rhythm. Heart sounds: Normal heart sounds. Pulmonary: Effort: Pulmonary effort is normal. No tachypnea, accessory muscle usage or respiratory distress. Breath sounds: Normal breath sounds. No stridor. No wheezing, rhonchi or rales. Abdominal: General: There is no distension. Palpations: Abdomen is soft. Tenderness: There is no abdominal tenderness. There is no guarding or rebound. Musculoskeletal: Cervical back: Normal range of motion and neck supple. No edema, erythema, rigidity or tenderness. No pain with movement. Normal range of motion. Lymphadenopathy: Cervical: No cervical adenopathy. Skin: General: Skin is warm and dry. Neurological: Mental Status: She is alert and oriented to person, place, and time. ASSESSMENT/PLAN: 1. Sinobronchitis - ICD9: 473.9, 490, ICD10: J32.9, J40 Diagnosed with sinobronchitis. Placed on cough suppressant and doxycycline. Use caution when in sun with doxycycline. Patient nontoxic-appearing. No adventitious lung sounds. Afebrile. Patient was educated on supportive therapies. Patient will follow up with primary care provider as needed. Patient was instructed to immediately proceed to emergency room for any new, worsening, or symptoms lasting longer than anticipated. The patient's clinical presentation is otherwise unremarkable at this time. Based on exam and clinical finding, the patient is stable for discharge. Plan of care was discussed with patient. Patient verbalizes understanding and agrees to plan of care. This note was generated using [employer] software. It may contain errors in wording, punctuation, or spelling. Loreta Schmitt APRN.LUMP INSPECTOR documented in this encounter [facility] 07-19-2023 Note HNO ID: [id number] Author: CARLOS SAINI APRN.NOA Service: ? Author Type: Nurse Practitioner Type: Progress Notes Filed: 07/25/2023 11:46 Note Text: Department of Dermatology Carlos Saini APRN.CNP 07/19/2023 Last visit in Dermatology: 03/22/2023 Objective/Assessment/Plan 1. Neoplasm of unspecified behavior of bone, soft tissue, and skin Right Nasal Sidewall 5x4mm pink papule SKIN / NAIL BIOPSY Type of biopsy: tangential Informed consent: discussed and consent obtained Timeout: patient name, date of , surgical site, and procedure verified Procedure prep: Patient was prepped and draped in usual sterile fashion Prep type: Isopropyl alcohol Anesthesia: the lesion was anesthetized in a standard fashion Anesthetic: 1% lidocaine w/ epinephrine 1-100,000 local infiltration Instrument used: DermaBlade Hemostasis achieved with: aluminum chloride Outcome: patient tolerated procedure well Post-procedure details: sterile dressing applied Dressing type: bandage and petrolatum Specimen A - SURGICAL PATHOLOGY SKIN ONLY Follow-up as noted below or as needed. Chief Complaint: Patient presents with: LESION, SKIN Subjective and Objective HPI: Radha Benz is a 77 year old female who presents for individual lesion(s). Lesion(s): bump Location(s): nose Duration: just over a month Symptoms: none Past medical history is reviewed. Medication list is reviewed. Physical Exam included: face Intake: Ruthann Humphrey MA Procedure: shave Informed Consent Consent Obtained: Verbal Farson Protocol A moment to CARE was completed SIGN IN Personnel directly involved with the procedure wore the appropriate PPE Special Equipment: N/A Patient/Surrogate Stated/Verified: Patient name, Date of , Relevant allergies and Intended procedure TIME OUT Intended patient and procedure match the source document(s) No relevant labs, photos, and/or imaging studies were applicable for review. Correct side/site marked and visible. Medications required for procedure verified. Fire risk assessed and interventions discussed. No implant(s) inserted. SIGN OUT All specimen containers correctly labeled. All instruments, equipment, possible retained foreign bodies accounted for. Post-procedure follow-up management communicated and Plan of Care Visit completed when applicable I agree with the Chief Complaint, ROS, and Past Histories independently gathered by the clinical it support engineer and the remaining scribed note accurately describes my personal service to the patient. Carlos Saini APRN.[facility] 05-19-2023 Note HNO ID: [id number] Author: Lauren May APRN.LAND PLANNER Service: ? Author Type: Nurse Specialist Type: Progress Notes Filed: 05/20/2023 10:07 AM Note Text: SUBJECTIVE: RSV Vaccine(1 - 1-dose 60+ series) Never done Influenza Vaccine(1) due on 03/11/2023 HPI Radha Benz is a 77 year old female. PMH significant for ACTIVE PROBLEM LIST Generalized Anxiety Disorder Essential Hypertension Ichthyosis Congenita Allergic Rhinitis Encounter for Long-Term (Current) Use of Medications Personal History of Malignant Melanoma of Skin Mass of Right Inguinal Region Bmi 28.0-28.9,Adult Ckd (Chronic Kidney Disease) Stage 3, Gfr 30-59 Ml/Min (Hcc) Cellulitis of Groin Golden (Acute Kidney Injury) ([facility]) Bilateral Leg Edema History of Malignant Neoplasm of Rectum Primary Osteoarthritis of Left Knee Status Post Left Knee Replacement Macular Degeneration of Left Eye Presents for routine follow up today. Notes interested in weight loss medication. Does not want to do injection. Had breast biopsy 08/2022 at [facility]. Has gone to [facility] To [facility]. Seen by Dr. Eduardo for macular degeneration. Sees Dr. Min. Had cataracts both eyes. Blepharoplasty with Dr. Valle. Notes her mood is stable on current medication. HTN: She is without report of headache, chest pain, palpitations, dyspnea, peripheral edema, orthopnea, fatigue and PND. 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 Review of Systems Constitutional: Negative. Respiratory: Negative. Cardiovascular: Negative. Psychiatric/Behavioral: Negative for decreased concentration and dysphoric mood. Objective BP 121/81 Pulse 61 Resp 16 Wt 81.6 kg (180 lb) BMI 33.46 kg/m? Physical Exam Vitals and nursing note reviewed. Constitutional: Appearance: Normal appearance. HENT: Head: Normocephalic and atraumatic. Eyes: Conjunctiva/sclera: Conjunctivae normal. Neck: Thyroid: No thyroid mass, thyromegaly or thyroid tenderness. Vascular: Normal carotid pulses. No carotid bruit or JVD. Cardiovascular: Rate and Rhythm: Normal rate and regular rhythm. Pulses: Carotid pulses are 2+ on the right side and 2+ on the left side. Radial pulses are 2+ on the right side and 2+ on the left side. Dorsalis pedis pulses are 2+ on the right side and 2+ on the left side. Heart sounds: Normal heart sounds. Pulmonary: Effort: Pulmonary effort is normal. Breath sounds: Normal breath sounds. Abdominal: General: Bowel sounds are normal. Palpations: Abdomen is soft. Musculoskeletal: Right lower leg: No edema. Left lower leg: No edema. Skin: General: Skin is warm and dry. Neurological: General: No focal deficit present. Mental Status: She is alert and oriented to person, place, and time. ALLERGIES Allergen Reactions Bactrim [Sulfametho* Other: See Comments Elevated Kidney function Dust Other: See Comments sneezing/watery eyes Trees Other: See Comments sneezing, watery eyes MEDICATIONS carvedilol (COREG) 12.5 mg tablet Take 1 tablet by mouth two times a day with meals. Fluocinolone-Hydroq.-Tretinoin (TRI-EDWINA) 0.01-4-0.05 % Apply a thin layer, pea sized amount to face once daily. Start every third night, then increase to every other night, and then nightly as tolerated. loratadine (CLARITIN) 10 mg tablet Take 1 tablet by mouth once daily. vit C/E/Zn/coppr/lutein/zeaxan (PRESERVISION AREDS-2 ORAL) Take by mouth. turmeric root extract 500 mg cap Take by mouth. Phentermine HCl 37.5 mg tablet Take 1 tablet by mouth daily with breakfast for 30 days. citalopram (CELEXA) 40 mg tablet Take 1 tablet by mouth once daily. spironolactone (ALDACTONE) 25 mg tablet Take 1 tablet by mouth two times a day. Cholecalciferol, Vitamin D3, 50 mcg (2,000 unit) cap Take 2 capsules by mouth once daily. albuterol HFA (PROVENTIL HFA, VENTOLIN HFA) 90 mcg/actuation inhaler Inhale 2 Puffs as instructed every 6 hours as needed for wheezing/shortness of breath. 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 Hatch; surgery Dr. Calvo through [facility] Trochanteric bursitis of left hip 06/12/2012 Unspec (more content not included)... [facility] 05-19-2023 Instructions Lauren May APRN.CNS - 05/19/2023 9:42 AM EST Try phentermine for weight loss. Take it in the morning either before with breakfast. Check your blood pressure and heart rate while taking. Stop taking it and let us know if you do not feel well with this medication. documented in this encounter [facility] 05-19-2023 History of Present illness Narrative SUBJECTIVE: RSV Vaccine(1 - 1-dose 60+ series) Never done Influenza Vaccine(1) due on 03/11/2023 HPI Radhasha Benz is a 77 year old female. PMH significant for ACTIVE PROBLEM LIST Generalized Anxiety Disorder Essential Hypertension Ichthyosis Congenita Allergic Rhinitis Encounter for Long-Term (Current) Use of Medications Personal History of Malignant Melanoma of Skin Mass of Right Inguinal Region Bmi 28.0-28.9,Adult Ckd (Chronic Kidney Disease) Stage 3, Gfr 30-59 Ml/Min (Hcc) Cellulitis of Groin Golden (Acute Kidney Injury) (Hcc) Bilateral Leg Edema History of Malignant Neoplasm of Rectum Primary Osteoarthritis of Left Knee Status Post Left Knee Replacement Macular Degeneration of Left Eye Presents for routine follow up today. Notes interested in weight loss medication. Does not want to do injection. Had breast biopsy 08/2022 at [facility]. Has gone to [facility] To [facility]. Seen by Dr. Eduardo for macular degeneration. Sees Dr. Min. Had cataracts both eyes. Blepharoplasty with Dr. Valle. Notes her mood is stable on current medication. HTN: She is without report of headache, chest pain, palpitations, dyspnea, peripheral edema, orthopnea, fatigue and PND. 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 Review of Systems Constitutional: Negative. Respiratory: Negative. Cardiovascular: Negative. Psychiatric/Behavioral: Negative for decreased concentration and dysphoric mood. Objective BP 121/81 Pulse 61 Resp 16 Wt 81.6 kg (180 lb) BMI 33.46 kg/m Physical Exam Vitals and nursing note reviewed. Constitutional: Appearance: Normal appearance. HENT: Head: Normocephalic and atraumatic. Eyes: Conjunctiva/sclera: Conjunctivae normal. Neck: Thyroid: No thyroid mass, thyromegaly or thyroid tenderness. Vascular: Normal carotid pulses. No carotid bruit or JVD. Cardiovascular: Rate and Rhythm: Normal rate and regular rhythm. Pulses: Carotid pulses are 2+ on the right side and 2+ on the left side. Radial pulses are 2+ on the right side and 2+ on the left side. Dorsalis pedis pulses are 2+ on the right side and 2+ on the left side. Heart sounds: Normal heart sounds. Pulmonary: Effort: Pulmonary effort is normal. Breath sounds: Normal breath sounds. Abdominal: General: Bowel sounds are normal. Palpations: Abdomen is soft. Musculoskeletal: Right lower leg: No edema. Left lower leg: No edema. Skin: General: Skin is warm and dry. Neurological: General: No focal deficit present. Mental Status: She is alert and oriented to person, place, and time. ALLERGIES Allergen Reactions Bactrim [Sulfametho* Other: See Comments Elevated Kidney function Dust Other: See Comments sneezing/watery eyes Trees Other: See Comments sneezing, watery eyes MEDICATIONS carvedilol (COREG) 12.5 mg tablet Take 1 tablet by mouth two times a day with meals. Fluocinolone-Hydroq.-Tretinoin (TRI-EDWINA) 0.01-4-0.05 % Apply a thin layer, pea sized amount to face once daily. Start every third night, then increase to every other night, and then nightly as tolerated. loratadine (CLARITIN) 10 mg tablet Take 1 tablet by mouth once daily. vit C/E/Zn/coppr/lutein/zeaxan (PRESERVISION AREDS-2 ORAL) Take by mouth. turmeric root extract 500 mg cap Take by mouth. Phentermine HCl 37.5 mg tablet Take 1 tablet by mouth daily with breakfast for 30 days. citalopram (CELEXA) 40 mg tablet Take 1 tablet by mouth once daily. spironolactone (ALDACTONE) 25 mg tablet Take 1 tablet by mouth two times a day. Cholecalciferol, Vitamin D3, 50 mcg (2,000 unit) cap Take 2 capsules by mouth once daily. albuterol HFA (PROVENTIL HFA, VENTOLIN HFA) 90 mcg/actuation inhaler Inhale 2 Puffs as instructed every 6 hours as needed for wheezing/shortness of breath. 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 Hatch; surgery Dr. Calvo through [facility] Trochanteric bursitis of left hip 06/12/2012 Unspecified essential hypertension Social History Tobacco Use Smoking status: Never Smokeless tobacco: Never Vaping Use Vaping Use: Never used Substance Use Topics Alcohol use: Yes Comment: Occasional Drug use: Never Component Latest Ref Rng & Units 04/28/2022 08/11/2022 05/17/2023 WBC 3.70 - 11.00 k/uL 8.52 6.05 RBC 3.90 - 5.20 m/uL 4.76 4.47 Hemoglobin 11.5 - 15.5 g/dL 15.4 13.9 Hematocrit 36.0 - 46.0 % 47.9 (H) 44.1 MCV 80.0 - 100.0 fL 100.6 (H) 98.7 MCH 26.0 - 34.0 pg 32.4 31.1 MCHC 30.5 - 36.0 g/dL 32.2 31.5 RDW-CV 11.5 - 15.0 % 12.3 12.3 Platelet Count 150 - 400 k/uL 252 259 MPV 9.0 - 12.7 fL 11.0 10.9 Neut% % 68.0 Abs Neut (ANC) 1.45 - 7.50 k/uL 4.11 Lymph% % 16.2 Abs Lymph 1.00 - 4.00 k/uL 0.98 (L) Young% % 10.2 Abs Young <0.87 k/uL 0.62 Eosin% % 3.8 Abs Eosin <0.46 k/uL 0.23 Baso% % 1.3 Abs Baso <0.11 k/uL 0.08 Immature Gran % % 0.5 IMMATURE GRANS (ABS) <0.10 k/uL 0.03 NRBC /100 WBC 0.0 Absolute nRBC <0.01 k/uL <0.01 <0.01 DTYPE Auto Protein, Total 6.3 - 8.0 g/dL 6.8 6.6 Albumin 3.9 - 4.9 g/dL 4.8 4.4 Calcium 8.5 - 10.2 mg/dL 10.4 (H) 9.9 Bilirubin, Total 0.2 - 1.3 mg/dL 0.6 0.5 Alkaline Phosphatase 34 - 123 U/L 142 (H) 104 AST 13 - 35 U/L 22 32 ALT 7 - 38 U/L 20 32 Glucose 74 - 99 mg/dL 68 (L) 93 BUN 7 - 21 mg/dL 23 (H) 12 Creatinine 0.58 - 0.96 mg/dL 1.04 (H) 1.08 (H) Sodium 136 - 144 mmol/L 136 140 Potassium 3.7 - 5.1 mmol/L 4.5 4.4 Chloride 97 - 105 mmol/L 101 103 CO2 22 - 30 mmol/L 22 25 Anion Gap 9 - 18 mmol/L 13 12 eGFR >=60 mL/min/1.73m 56 (L) 53 (L) Cholesterol, Total <200 mg/dL 254 (H) 225 (H) Triglyceride <150 mg/dL 201 (H) 178 (H) HDL Cholesterol >39 mg/dL 73 71 Non HDL Cholesterol <130 mg/dL 181 (H) 154 (H) Fasting Time hrs 18 16 VLDL Cholesterol <30 mg/dL 40 (H) 36 (H) TC:HDL Ratio <5.10 3.48 3.17 LDL Cholesterol <100 mg/dL 141 (H) 118 (H) LDL:HDL Ratio <2.54 1.93 1.66 Vitamin D 25 Hydroxy 31.0 - 80.0 ng/mL 64.9 64.9 56.4 PTH, Intact 15 - 65 pg/mL 42 59 20 Vitamin B12 232 - 1,245 pg/mL 1,003 Folate >4.7 ng/mL >20.0 TSH 0.270 - 4.200 mIU/L 3.070 The 10-year ASCVD risk score (Isabelle DK, et al., 2019) is: 23.8% Values used to calculate the score: Age: 77 years Sex: Female Is Non- : No Diabetic: No Tobacco smoker: No Systolic Blood Pressure: 121 mmHg Is BP treated: Yes HDL Cholesterol: 71 mg/dL Total Cholesterol: 225 mg/dL Declines medication ASSESSMENT/PLAN: 1. Primary hypertension - ICD9: 401.9, ICD10: I10 (primary diagnosis) Controlled - Continue current medications - Encouraged sodium restriction, DASH or Mediterranean diet - Recommend regular aerobic exercise - SPIRONOLACTONE 25 MG TABLET - COMP METABOLIC PANEL - CBC + DIFF - LIPID PANEL BASIC - VITAMIN D 25 HYDROXY - PTH INTACT BLD - TSH BLD 2. Encounter for immunization - ICD9: V03.89, ICD10: Z23 - RSV PRINTED PHARMACY INSTRUCTIONS 3. Essential hypertension - ICD9: 401.9, ICD10: I10 4. Generalized anxiety disorder - ICD9: 300.02, ICD10: F41.1 Stable, currently controlled, continue to monitor. - CITALOPRAM 40 MG TABLET - COMP METABOLIC PANEL - CBC + DIFF 5. Caregiver stress - ICD9: V61.49, ICD10: Z63.6 - CITALOPRAM 40 MG TABLET 6. Obesity (BMI 30-39.9) - ICD9: 278.00, ICD10: E66.9 Weight increasing BMI 33.46 Was interested in tirzepatide but does not want to do injections - Add Phentermine Recheck 3 months - weight, blood pressure, and heart rate no required time off after 12 weeks of therapy not to continue if have not achieved a weight loss of at least 5% of the of initial weight, during the initial three month - PHENTERMINE 37.5 MG TABLET - COMP METABOLIC PANEL - CBC + DIFF - LIPID PANEL BASIC - VITAMIN D 25 HYDROXY - PTH INTACT BLD - TSH BLD 7. Vitamin D deficiency - ICD9: 268.9, ICD10: E55.9 - VITAMIN D 25 HYDROXY - PTH INTACT BLD 8. Stage 3a chronic kidney disease (HCC) - ICD9: 585.3, ICD10: N18.31 Stable, currently controlled, continue to monitor. 9. Hyperlipidemia, unspecified hyperlipidemia type - ICD9: 272.4, ICD10: E78.5 Recommend a plant based diet such as Mediterranean diet with plenty of vegetables, fruits,whole grains, fish, chicken, turkey or plant proteins and routine exercise such as walking Declines medication, prefers to address with diet and lifestyle measures - LIPID PANEL BASIC 6 mo follow up MD Lauren Harden APRN.CNS Medical Decision Making: Problems: Moderate: 2+ stable chronic illnesses Data: Unique test(s) ordered: 3+ Risk: Moderate: Drug management Medical Decision Making Level: 4 - Moderate documented in this encounter [facility] 04-29-2023 Miscellaneous Notes Next OV 05/19 with Lauren May and then annual with Dr. Mccall 11/18/23 Patient has been identified by name and date of : Yes Last office visit in this department: 11/15/2022 RX INSTRUCTIONS: Patient aware RX will be sent to pharmacy. No need to notify patient. Patient phones requesting refills as follows: Requested Prescriptions Pending Prescriptions Disp Refills carvedilol (COREG) 12.5 mg tablet 180 tablet 3 Sig: Take 1 tablet by mouth two times a day with meals. Please review and advise. Margaret Roth documented in this encounter [facility] 03-22-2023 Note HNO ID: [id number] Author: Carlos Saini APRN.CNP Service: ? Author Type: Nurse Practitioner Type: Progress Notes Filed: 03/22/2023 11:26 AM Note Text: Department of Dermatology Carlos Saini APRN.LUMP INSPECTOR 03/22/2023 Last visit in Dermatology: Visit date not found Objective/Assessment/Plan 1. Multiple benign nevi Multiple scattered pink papules with flaccid epidermis and small, symmetric olsen to brown macules with uniform pigmentation over the trunk and extremities. Observational course. Monitor for growth and changes. 2. Personal history of malignant melanoma of skin Right Lower Leg - Posterior No evidence of recurrence at previous surgical site Recommend Q12 month skin exams and regular dermatology follow up 3. Seborrheic keratosis Stuck-on verrucous, variably pigmented papules and plaques. Scattered to the trunk, bilateral upper extremities, bilateral lower extremities. Observational course. Monitor for growth and changes. 4. Lentigines Densely scattered light olsen macules and small patches on all sun exposed areas. Observational course. Monitor for growth and changes. 5. Peralta angioma Peralta-red papule(s). Scattered to the trunk, bilateral upper extremities, bilateral lower extremities. Observational course. Monitor for growth and changes. 6. History of nonmelanoma skin cancer No evidence of recurrence at previous surgical site Recommend Q12 month skin exams and regular dermatology follow up 7. AK (actinic keratosis) (2) Right Buccal Cheek, Right Bahai Red papules with gritty adherent scale. Discussed etiology, course, prognosis and treatment options. Advised treatment due to pre-cancerous nature and SCC transformation risk, patient agreeable. Counseled that redness, swelling, and formation of a blister at treated sites are possible reactions. - Number of lesions treated with LN2: 2 CRYOTHERAPY SKIN LESION - Right Buccal Cheek, Right Bahai Complexity: simple Destruction method: cryotherapy Informed consent: discussed and consent obtained Timeout: patient name, date of , surgical site, and procedure verified Lesion destroyed using liquid nitrogen: Yes Cryotherapy cycles: 2 Outcome: patient tolerated procedure well with no complications Post-procedure details: wound care instructions given Additional details: I discussed treatment options with the patient. The risks of blistering, infection, scarring, damage to underlying structures and potential need for future procedures discussed. The patient verbalized understanding and desires us to proceed. 8. Diffuse photoaging of skin Head - Anterior (Face) Re-start tri-edwina as prior. R/b/a for the medication(s) including possible side effects discussed and reviewed with patient. May consider follow up with cosmetic dermatology if additional cosmetic treatment desired. Follow-up as noted below or as needed. Chief Complaint: Patient presents with: Full Body Skin Check Subjective and Objective HPI: Radha Benz is a 77 year old female who presents for: Skin check. 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 Medication list is reviewed. Physical Exam included: Scalp, face, ears, neck, chest, back, abdomen, bilateral upper extremities, bilateral lower extremities, buttocks, hands, feet, nails and hair Intake information obtained by Ruthann Humphrey Ma 03/22/23 9:11 AM Jennie Mcmillan PA-C (Training) March 22, 2023 9:35 AM I have seen and evaluated the patient and discussed the case with the PA/OPERATIONS ADMINISTRATOR trainee. I agree with the assessment and plan as documented in the PA/OPERATIONS ADMINISTRATOR's note. Carlos Saini APRN.[facility] 12-02-2022 Note HNO ID: [id number] Author: Freddy Freeman MD Service: ? Author Type: Physician Type: Progress Notes Filed: 12/30/2022 10:29 AM Note Text: Freddy Freeman MD Department of Orthopaedics Orthopaedics [address] [facility] [address] Dept: [phone] Dept December 02, 2022 CHIEF COMPLAINT: New of the Right Hand and Referred by Dr. Mccall HPI Patient here for evaluation Dupuytren's contracture right hand. Patient states she has had the cord for about 2 years and feels it is getting worse. Her hand can be painful at times. Her hand aches and feels it draws outward. Patient is right hand dominant. Taking no med's for the pain. ASSESSMENT: M72.0 Dupuytren's contracture of right hand Comment: Appears to be Dupuytren's; does cause some pain and wanted to see if injection might help; plays golf PLAN: Trigger injection for now. Stable dupuytren's . We reviewed the treatment option and expectations for both of these diagnoses and information was provided accordingly. FOLLOW UP INSTRUCTIONS: As needed. Ms. Radha Benz was advised as to contrast therapies and/or to take analgesics/anti-inflammatories as needed and all contraindications were reviewed. OBJECTIVE: Ms. Radha Benz is a pleasant 77 year old in no apparent distress. Gen:There were no vitals taken for this visit. nl development, non obese, no deformities ENT: Normocephalic, normal hearing, moist mucosa CV: Pulses:Radial= 2+ and symmetric, capillary refill < 2 secs, no peripheral edema/varicosities Skin: no rash, bruising or lesions. Good turgor. Psych: cooperative and appropriate, alert and oriented x 3, good mood and affect. Musculoskeletal: TTP at the A1 elisha of the right, middle finger. She has come clicking and catching of the finger as well. Minor, non contracted anant changes in the alejandrina. In addition to the comprehensive evaluation, assessment and plan outlined above, and as a distinct and separate element to the visit today, separate from the separate complaint of dupuytren's cord , we have made the determination to proceed with an injection to aid in the management of the patient's condition. We discussed the risks, benefits, alternatives and expected outcomes of this injection in detail, and the patient agreed to proceed. The procedure was performed as detailed below. Additional Injections: R long A1 for trigger finger Informed Consent Consent Obtained: Verbal Farson Protocol A moment to CARE was completed. SIGN IN Personnel directly involved with the procedure wore the appropriate PPE. Special Equipment: N/A Patient/Surrogate Stated/Verified: Patient name, Date of , Relevant allergies and Intended procedure TIME OUT Intended patient and procedure match the source document(s). Consent documented and matches the intended procedure. Relevant labs, photos, and/or imaging studies have been reviewed. Correct side/site marked and visible. Medications required for procedure verified. No fire risk assessment and interventions applicable. No implant(s) inserted. 12/02/2022 8:59 AM The procedure site was prepped in the usual sterile fashion. Medications: 3 mg betamethasone acetate-betamethasone sodium phosphate 6 mg/mL Anesthetics: 0.5 mL lidocaine (PF) 10 mg/mL (1 %) Outcome: tolerated well, no immediate complications Post-injection instructions were reviewed with the patient and the patient voiced understanding of these instructions. SIGN OUT All instruments, equipment, possible retained foreign bodies accounted for. 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 Hatch; surgery Dr. Calvo through [facility] Trochanteric bursitis of left hip 06/12/2012 Unspecified essential hypertension Past Surgical History: PAST SURGICAL HISTORY Procedure Laterality Date PAST SURGICAL HISTORY OF STATUS POST ANTERIOR PROCTOSIGMOIDECTOMY Family History: FAMILY HISTORY Problem Relation Age of Onset Diabetes Mother Hypertension Mother other (hypothyroidism) Mother Coronary Artery Disease Father other (hypothyroidism) Daughter Social History: Social History Tobacco Use Smoking status: Never Smokeless tobacco: Never Vaping Use Vaping Use: Never used Substance Use Topics Alcohol use: Yes Comment: Occasional Drug use: Never Medications: Current Outpatient Medications Medication Sig loratadine (CLARITIN) 10 mg tablet Take 1 tablet by mouth once daily. vit C/E/Zn/coppr/lutein/zeaxan (PRESERVISION AREDS-2 ORAL) Take by mouth. Cholecalciferol, Vitamin D3, 50 mcg (2,000 unit) cap Take 2 c (more content not included)... [facility] 12-02-2022 History of Present illness Narrative Associated Order(s): Additional Injections: R long A1 Post-Procedure Diagnose(s): Trigger middle finger of right hand Freddy Freeman MD Department of Orthopaedics Orthopaedics [address] [facility] [address] Dept: [phone] Dept December 02, 2022 CHIEF COMPLAINT: New of the Right Hand and Referred by Dr. Mccall HPI Patient here for evaluation Dupuytren's contracture right hand. Patient states she has had the cord for about 2 years and feels it is getting worse. Her hand can be painful at times. Her hand aches and feels it draws outward. Patient is right hand dominant. Taking no med's for the pain. ASSESSMENT: M72.0 Dupuytren's contracture of right hand Comment: Appears to be Dupuytren's; does cause some pain and wanted to see if injection might help; plays golf PLAN: Trigger injection for now. Stable dupuytren's . We reviewed the treatment option and expectations for both of these diagnoses and information was provided accordingly. FOLLOW UP INSTRUCTIONS: As needed. Ms. Radha Benz was advised as to contrast therapies and/or to take analgesics/anti-inflammatories as needed and all contraindications were reviewed. OBJECTIVE: Ms. Radha Benz is a pleasant 77 year old in no apparent distress. Gen:There were no vitals taken for this visit. nl development, non obese, no deformities ENT: Normocephalic, normal hearing, moist mucosa CV: Pulses:Radial= 2+ and symmetric, capillary refill < 2 secs, no peripheral edema/varicosities Skin: no rash, bruising or lesions. Good turgor. Psych: cooperative and appropriate, alert and oriented x 3, good mood and affect. Musculoskeletal: TTP at the A1 elsiha of the right, middle finger. She has come clicking and catching of the finger as well. Minor, non contracted anant changes in the alejandrina. In addition to the comprehensive evaluation, assessment and plan outlined above, and as a distinct and separate element to the visit today, separate from the separate complaint of dupuytren's cord , we have made the determination to proceed with an injection to aid in the management of the patient's condition. We discussed the risks, benefits, alternatives and expected outcomes of this injection in detail, and the patient agreed to proceed. The procedure was performed as detailed below. Additional Injections: R long A1 for trigger finger Informed Consent Consent Obtained: Verbal Farson Protocol A moment to CARE was completed. SIGN IN Personnel directly involved with the procedure wore the appropriate PPE. Special Equipment: N/A Patient/Surrogate Stated/Verified: Patient name, Date of , Relevant allergies and Intended procedure TIME OUT Intended patient and procedure match the source document(s). Consent documented and matches the intended procedure. Relevant labs, photos, and/or imaging studies have been reviewed. Correct side/site marked and visible. Medications required for procedure verified. No fire risk assessment and interventions applicable. No implant(s) inserted. 12/02/2022 8:59 AM The procedure site was prepped in the usual sterile fashion. Medications: 3 mg betamethasone acetate-betamethasone sodium phosphate 6 mg/mL Anesthetics: 0.5 mL lidocaine (PF) 10 mg/mL (1 %) Outcome: tolerated well, no immediate complications Post-injection instructions were reviewed with the patient and the patient voiced understanding of these instructions. SIGN OUT All instruments, equipment, possible retained foreign bodies accounted for. 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 Hatch; surgery Dr. Calvo through [facility] Trochanteric bursitis of left hip 06/12/2012 Unspecified essential hypertension Past Surgical History: PAST SURGICAL HISTORY Procedure Laterality Date PAST SURGICAL HISTORY OF STATUS POST ANTERIOR PROCTOSIGMOIDECTOMY Family History: FAMILY HISTORY Problem Relation Age of Onset Diabetes Mother Hypertension Mother other (hypothyroidism) Mother Coronary Artery Disease Father other (hypothyroidism) Daughter Social History: Social History Tobacco Use Smoking status: Never Smokeless tobacco: Never Vaping Use Vaping Use: Never used Substance Use Topics Alcohol use: Yes Comment: Occasional Drug use: Never Medications: Current Outpatient Medications Medication Sig loratadine (CLARITIN) 10 mg tablet Take 1 tablet by mouth once daily. vit C/E/Zn/coppr/lutein/zeaxan (PRESERVISION AREDS-2 ORAL) Take by mouth. Cholecalciferol, Vitamin D3, 50 mcg (2,000 unit) cap Take 2 capsules by mouth once daily. spironolactone (ALDACTONE) 25 mg tablet Take 1 tablet by mouth twice daily. citalopram (CELEXA) 40 mg tablet Take 1 tablet by mouth once daily. carvedilol (COREG) 12.5 mg tablet Take 1 tablet by mouth twice daily with meals. turmeric root extract 500 mg cap Take by mouth. Fluocinolone-Hydroq.-Tretinoin (TRI-EDWINA) 0.01-4-0.05 % Apply pea size to face once daily albuterol HFA (PROVENTIL HFA, VENTOLIN HFA) 90 mcg/actuation inhaler Inhale 2 Puffs as instructed every 6 hours as needed for wheezing/shortness of breath. benzonatate (TESSALON PERLES) 100 mg capsule Take 1 capsule by mouth three times daily as needed for cough. (Patient not taking: No sig reported) fluticasone (FLONASE) 50 mcg/actuation nasal spray Use 2 Sprays in each nostril once daily. Rinse mouth after use. (Patient not taking: Reported on 11/15/2022) No current facility-administered medications for this visit. Allergies: Bactrim [Sulfamethoxazole-Trimethoprim], Dust, and Trees ROS: General (negative for fatigue, malaise, weight loss/gain) HEENT (negative for headache, earache, recent vision changes, sinus pain, sore throat) Respiratory (no recent shortness of breath, hemoptysis) CV (negative for chest tightness, palpitations) Musculoskeletal (see HPI) Psych (no depression, anxiety) REFERRING PHYSICIAN: Consultation requested by Dr. Mccall for an opinion regarding finger pain. My final recommendations will be communicated back to the requesting physician by way of shared Medical record or letter to requesting physician via US mail. Margo Mccall [address] [facility] [address] Margo Mccall MD [address] [facility] [address] Freddy Freeman MD documented in this encounter [facility] 11-15-2022 Note HNO ID: [id number] Author: Margo Mccall MD Service: ? Author Type: Physician Type: Progress Notes Filed: 12/13/2022 12:25 AM Note Text: This note was created using Newslabsriter. Subjective Radha Benz is a 77 year old female. Patient presents with: F/U 6 Month SUBJECTIVE: Radha Benz is a 77 year old year old lady here today for 6 month follow up appointment for review of medical conditions. Working with vocational trainer on healthier diet and regular exercise to help with losing weight. Walking 30 minutes a day, floor exercises plus will start with golf. Sometime hurts in right hand from contracture in palm of her hand. Depression Screening 06/12/2018 04/29/2022 11/14/2022 11/15/2022 PHQ-2 Score 0 0 0 0 PHQ-9 Score - - 1 - Depression screening tool completed and reviewed. Based on score and interview, patient is already diagnosed with depression. Screening tool discussed with patient, and I recommended continuing current plan of care. PAST MEDICAL HISTORY Diagnosis Date Allergic rhinitis, cause unspecified Generalized anxiety disorder Ichthyosis congenita Malignant neoplasm of rectum (HCC) Resected in 2000 Melanoma of lower extremity 2012 breslow thickness at least 0.9 mm right calf--diagnosed Nov through Dr. Hatch; surgery Dr. Calvo through [facility] Trochanteric bursitis of left hip 06/12/2012 Unspecified essential hypertension Current Outpatient Medications Medication Sig loratadine (CLARITIN) 10 mg tablet Take 1 tablet by mouth once daily. vit C/E/Zn/coppr/lutein/zeaxan (PRESERVISION AREDS-2 ORAL) Take by mouth. Cholecalciferol, Vitamin D3, 50 mcg (2,000 unit) cap Take 2 capsules by mouth once daily. spironolactone (ALDACTONE) 25 mg tablet Take 1 tablet by mouth twice daily. citalopram (CELEXA) 40 mg tablet Take 1 tablet by mouth once daily. carvedilol (COREG) 12.5 mg tablet Take 1 tablet by mouth twice daily with meals. turmeric root extract 500 mg cap Take by mouth. Fluocinolone-Hydroq.-Tretinoin (TRI-EDWINA) 0.01-4-0.05 % Apply pea size to face once daily albuterol HFA (PROVENTIL HFA, VENTOLIN HFA) 90 mcg/actuation inhaler Inhale 2 Puffs as instructed every 6 hours as needed for wheezing/shortness of breath. benzonatate (TESSALON PERLES) 100 mg capsule Take 1 capsule by mouth three times daily as needed for cough. (Patient not taking: No sig reported) fluticasone (FLONASE) 50 mcg/actuation nasal spray Use 2 Sprays in each nostril once daily. Rinse mouth after use. (Patient not taking: Reported on 11/15/2022) No current facility-administered medications for this visit. Review of Systems Objective BP 114/84 Pulse 66 Temp 36.4 ?C (97.6 ?F) (Temporal) Resp 16 Ht 156.2 cm (5' 1.5 ) Wt 77.2 kg (170 lb 3.2 oz) SpO2 99% BMI 31.64 kg/m? Physical Exam Constitutional: Appearance: Normal appearance. HENT: Head: Normocephalic. Eyes: Conjunctiva/sclera: Conjunctivae normal. Cardiovascular: Rate and Rhythm: Normal rate and regular rhythm. Heart sounds: Normal heart sounds. Pulmonary: Effort: Pulmonary effort is normal. Breath sounds: Normal breath sounds. Musculoskeletal: Comments: Right hand with contracture in middle of palm of hand Skin: General: Skin is warm and dry. Neurological: General: No focal deficit present. Mental Status: She is alert and oriented to person, place, and time. Psychiatric: Mood and Affect: Mood normal. Behavior: Behavior normal. Thought Content: Thought content normal. Judgment: Judgment normal. Component Latest Ref Rng AND Units 12/29/2021 04/28/2022 08/11/2022 WBC 3.70 - 11.00 k/uL 8.52 6.05 RBC 3.90 - 5.20 m/uL 4.76 4.47 Hemoglobin 11.5 - 15.5 g/dL 15.4 13.9 Hematocrit 36.0 - 46.0 % 47.9 (H) 44.1 MCV 80.0 - 100.0 fL 100.6 (H) 98.7 MCH 26.0 - 34.0 pg 32.4 31.1 MCHC 30.5 - 36.0 g/dL 32.2 31.5 RDW-CV 11.5 - 15.0 % 12.3 12.3 Platelet Count 150 - 400 k/uL 252 259 MPV 9.0 - 12.7 fL 11.0 10.9 Neut% % 68.0 Abs Neut (ANC) 1.45 - 7.50 k/uL 4.11 Lymph% % 16.2 Abs Lymph 1.00 - 4.00 k/uL 0.98 (L) Young% % 10.2 Abs Young <0.87 k/uL 0.62 Eosin% % 3.8 Abs Eosin <0.46 k/uL 0.23 Baso% % 1.3 Abs Baso <0.11 k/uL 0.08 Immature Gran % % 0.5 IMMATURE GRANS (ABS) <0.10 k/uL 0.03 NRBC /100 WBC 0.0 Absolute nRBC <0.01 k/uL <0.01 <0.01 DTYPE Auto Protein, Total 6.3 - 8.0 g/dL 6.8 6.6 Albumin 3.9 - 4.9 g/dL 4.8 4.4 Calcium 8.5 - 10.2 mg/dL 10.4 (H) 9.9 Bilirubin, Total 0.2 - 1.3 mg/dL 0.6 0.5 Alkaline Phosphatase 34 - 123 U/L 142 (H) 104 AST 13 - 35 U/L 22 32 ALT 7 - 38 U/L 20 32 Glucose 74 - 99 mg/dL 68 (L) 93 BUN 7 - 21 mg/dL 23 (H) 12 Creatinine 0.58 - 0.96 mg/dL 1.04 (H) 1.08 (H) Sodium 136 - 144 mmol/L 136 140 Potassium 3.7 - 5.1 mmol/L 4.5 4.4 Chloride 97 - 105 mmol/L 101 103 CO2 22 - 30 mmol/L 22 25 Anion Gap 9 - 18 mmol/L 13 12 eGFR >=60 mL/min/1.73mA? 56 (L) 53 (L) Cholesterol, Total <200 mg/dL 254 (H) Triglyceride <150 mg/d (more content not included)... [facility] 11-15-2022 History of Present illness Narrative This note was created using Newslabsriter. Subjective Radha Benz is a 77 year old female. Patient presents with: F/U 6 Month SUBJECTIVE: Radha Benz is a 77 year old year old lady here today for 6 month follow up appointment for review of medical conditions. Working with vocational trainer on healthier diet and regular exercise to help with losing weight. Walking 30 minutes a day, floor exercises plus will start with golf. Sometime hurts in right hand from contracture in palm of her hand. Depression Screening 06/12/2018 04/29/2022 11/14/2022 11/15/2022 PHQ-2 Score 0 0 0 0 PHQ-9 Score - - 1 - Depression screening tool completed and reviewed. Based on score and interview, patient is already diagnosed with depression. Screening tool discussed with patient, and I recommended continuing current plan of care. PAST MEDICAL HISTORY Diagnosis Date Allergic rhinitis, cause unspecified Generalized anxiety disorder Ichthyosis congenita Malignant neoplasm of rectum (HCC) Resected in 2000 Melanoma of lower extremity 2012 breslow thickness at least 0.9 mm right calf--diagnosed Nov through Dr. Hatch; surgery Dr. Calvo through [facility] Trochanteric bursitis of left hip 06/12/2012 Unspecified essential hypertension Current Outpatient Medications Medication Sig loratadine (CLARITIN) 10 mg tablet Take 1 tablet by mouth once daily. vit C/E/Zn/coppr/lutein/zeaxan (PRESERVISION AREDS-2 ORAL) Take by mouth. Cholecalciferol, Vitamin D3, 50 mcg (2,000 unit) cap Take 2 capsules by mouth once daily. spironolactone (ALDACTONE) 25 mg tablet Take 1 tablet by mouth twice daily. citalopram (CELEXA) 40 mg tablet Take 1 tablet by mouth once daily. carvedilol (COREG) 12.5 mg tablet Take 1 tablet by mouth twice daily with meals. turmeric root extract 500 mg cap Take by mouth. Fluocinolone-Hydroq.-Tretinoin (TRI-EDWINA) 0.01-4-0.05 % Apply pea size to face once daily albuterol HFA (PROVENTIL HFA, VENTOLIN HFA) 90 mcg/actuation inhaler Inhale 2 Puffs as instructed every 6 hours as needed for wheezing/shortness of breath. benzonatate (TESSALON PERLES) 100 mg capsule Take 1 capsule by mouth three times daily as needed for cough. (Patient not taking: No sig reported) fluticasone (FLONASE) 50 mcg/actuation nasal spray Use 2 Sprays in each nostril once daily. Rinse mouth after use. (Patient not taking: Reported on 11/15/2022) No current facility-administered medications for this visit. Review of Systems Objective BP 114/84 Pulse 66 Temp 36.4 C (97.6 F) (Temporal) Resp 16 Ht 156.2 cm (5' 1.5 ) Wt 77.2 kg (170 lb 3.2 oz) SpO2 99% BMI 31.64 kg/m Physical Exam Constitutional: Appearance: Normal appearance. HENT: Head: Normocephalic. Eyes: Conjunctiva/sclera: Conjunctivae normal. Cardiovascular: Rate and Rhythm: Normal rate and regular rhythm. Heart sounds: Normal heart sounds. Pulmonary: Effort: Pulmonary effort is normal. Breath sounds: Normal breath sounds. Musculoskeletal: Comments: Right hand with contracture in middle of palm of hand Skin: General: Skin is warm and dry. Neurological: General: No focal deficit present. Mental Status: She is alert and oriented to person, place, and time. Psychiatric: Mood and Affect: Mood normal. Behavior: Behavior normal. Thought Content: Thought content normal. Judgment: Judgment normal. Component Latest Ref Rng & Units 12/29/2021 04/28/2022 08/11/2022 WBC 3.70 - 11.00 k/uL 8.52 6.05 RBC 3.90 - 5.20 m/uL 4.76 4.47 Hemoglobin 11.5 - 15.5 g/dL 15.4 13.9 Hematocrit 36.0 - 46.0 % 47.9 (H) 44.1 MCV 80.0 - 100.0 fL 100.6 (H) 98.7 MCH 26.0 - 34.0 pg 32.4 31.1 MCHC 30.5 - 36.0 g/dL 32.2 31.5 RDW-CV 11.5 - 15.0 % 12.3 12.3 Platelet Count 150 - 400 k/uL 252 259 MPV 9.0 - 12.7 fL 11.0 10.9 Neut% % 68.0 Abs Neut (ANC) 1.45 - 7.50 k/uL 4.11 Lymph% % 16.2 Abs Lymph 1.00 - 4.00 k/uL 0.98 (L) Young% % 10.2 Abs Young <0.87 k/uL 0.62 Eosin% % 3.8 Abs Eosin <0.46 k/uL 0.23 Baso% % 1.3 Abs Baso <0.11 k/uL 0.08 Immature Gran % % 0.5 IMMATURE GRANS (ABS) <0.10 k/uL 0.03 NRBC /100 WBC 0.0 Absolute nRBC <0.01 k/uL <0.01 <0.01 DTYPE Auto Protein, Total 6.3 - 8.0 g/dL 6.8 6.6 Albumin 3.9 - 4.9 g/dL 4.8 4.4 Calcium 8.5 - 10.2 mg/dL 10.4 (H) 9.9 Bilirubin, Total 0.2 - 1.3 mg/dL 0.6 0.5 Alkaline Phosphatase 34 - 123 U/L 142 (H) 104 AST 13 - 35 U/L 22 32 ALT 7 - 38 U/L 20 32 Glucose 74 - 99 mg/dL 68 (L) 93 BUN 7 - 21 mg/dL 23 (H) 12 Creatinine 0.58 - 0.96 mg/dL 1.04 (H) 1.08 (H) Sodium 136 - 144 mmol/L 136 140 Potassium 3.7 - 5.1 mmol/L 4.5 4.4 Chloride 97 - 105 mmol/L 101 103 CO2 22 - 30 mmol/L 22 25 Anion Gap 9 - 18 mmol/L 13 12 eGFR >=60 mL/min/1.73m 56 (L) 53 (L) Cholesterol, Total <200 mg/dL 254 (H) Triglyceride <150 mg/dL 201 (H) HDL Cholesterol >39 mg/dL 73 Non HDL Cholesterol <130 mg/dL 181 (H) Fasting Time hrs 18 VLDL Cholesterol <30 mg/dL 40 (H) TC:HDL Ratio <5.10 3.48 LDL Cholesterol <100 mg/dL 141 (H) LDL:HDL Ratio <2.54 1.93 PTH, Intact 15 - 65 pg/mL 55 42 59 Vitamin D 25 Hydroxy 31.0 - 80.0 ng/mL 64.9 64.9 Vitamin B12 232 - 1,245 pg/mL 1,003 Folate >4.7 ng/mL >20.0 Assessment and Plan Encounter Diagnosis ICD-10-CM 1. Essential hypertension I10 2. Stage 3a chronic kidney disease (HCC) N18.31 3. Vitamin D deficiency E55.9 4. Dupuytren's contracture of right hand M72.0 CONSULT TO ORTHOPAEDICS Appears to be Dupuytren's; does cause some pain and wanted to see if injection might help; plays golf 5. Macular degeneration of left eye, unspecified type H35.30 Will start new eye injection with Dr. Lofton in [place]. Above issues addressed with patient. Patient involved in shared decision making for management of medical issues. History and medications reviewed. Epic updated as needed Refills and/or prescriptions taken care of and meds adjusted as indicated after reviewed history, exam and labs. Health Maintenance reviewed. Updated record and/or ordered tests as recorded. Extended date of lab orders. Encouraged on efforts at healthy diet and regular exercise and adequate sleep. I spent a total of 38 minutes on the date of the service which included [id number] patient care, completing clinical documentation, performing a medically appropriate examination, counseling and educating the patient/family/caregiver, ordering medications, tests, or procedures, and independently interpreting results (not separately reported). Margo Mccall MD documented in this encounter [facility] 08-17-2022 Miscellaneous Notes Patient notified of providers message and verbalized understanding. Patient would prefer to see Dr. Stringer at the hospital. He is a family friend. Order faxed to his office. Patient instructed to contact his office if she does not hear from them in the next day or two. Please let her know that mammogram completed at [facility] indicates biopsy should be considered BI-RADS Category [address]. [address] Black or her preferred general surgeon. documented in this encounter [facility] 08-13-2022 History of Present illness Narrative SUBJECTIVE: ANNUAL PCP TEAM CHRONIC DISEASE VISIT due on 07/15/2021 ADVANCE DIRECTIVE DISCUSSION due on 07/11/2022 DEPRESSION ASSESSMENT due on 07/11/2022 HPI Radha Benz is a 76 year old female. PMH significant for ACTIVE PROBLEM LIST Generalized Anxiety Disorder Essential Hypertension Ichthyosis Congenita Allergic Rhinitis Encounter for Long-Term (Current) Use of Medications Personal History of Malignant Melanoma of Skin Mass of Right Inguinal Region Bmi 28.0-28.9,Adult Ckd (Chronic Kidney Disease) Stage 3, Gfr 30-59 Ml/Min ([facility]) Cellulitis of Groin Golden (Acute Kidney Injury) ([facility]) Bilateral Leg Edema History of Malignant Neoplasm of Rectum Primary Osteoarthritis of Left Knee Status Post Left Knee Replacement Presents for preoperative visit in internal medicine. She is planning to complete blepharoplasty with Dr. Valle. PHYSICAL EXAM: BP 110/78 Pulse 63 Temp 36.4 C (97.6 F) Resp 16 Wt 78 kg (172 lb) BMI 31.46 kg/m General appearance: alert, cooperative, pleasant, in no acute distress, well dressed, well groomed Head: Normocephalic Neck: supple and small, benign anterior cervical nodes bilaterally Heart: regular rate and rhythm, without murmur Lungs: clear to auscultation, not diminished, without rales or rhonchi, good air exchange, wheezy cough intermittently Extremities: no edema Creatinine Date Value Ref Range Status 08/11/2022 1.08 (H) 0.58 - 0.96 mg/dL Final 04/28/2022 1.04 (H) 0.58 - 0.96 mg/dL Final 04/17/2021 1.15 (H) 0.58 - 0.96 mg/dL Final 08/28/2020 1.00 (H) 0.58 - 0.96 mg/dL Final Review of Systems Constitutional: Negative. Respiratory: Negative. Cardiovascular: Negative. Psychiatric/Behavioral: Negative for decreased concentration and dysphoric mood. ALLERGIES Allergen Reactions Bactrim [Sulfametho* Other: See Comments Elevated Kidney function Dust Other: See Comments sneezing/watery eyes Trees Other: See Comments sneezing, watery eyes MEDICATIONS albuterol HFA (PROVENTIL HFA, VENTOLIN HFA) 90 mcg/actuation inhaler Inhale 2 Puffs as instructed every 6 hours as needed for wheezing/shortness of breath. loratadine (CLARITIN) 10 mg tablet Take 1 tablet by mouth once daily. benzonatate (TESSALON PERLES) 100 mg capsule Take 1 capsule by mouth three times daily as needed for cough. vit C/E/Zn/coppr/lutein/zeaxan (PRESERVISION AREDS-2 ORAL) Take by mouth. Cholecalciferol, Vitamin D3, 50 mcg (2,000 unit) cap Take 2 capsules by mouth once daily. spironolactone (ALDACTONE) 25 mg tablet Take 1 tablet by mouth twice daily. fluticasone (FLONASE) 50 mcg/actuation nasal spray Use 2 Sprays in each nostril once daily. Rinse mouth after use. citalopram (CELEXA) 40 mg tablet Take 1 tablet by mouth once daily. carvedilol (COREG) 12.5 mg tablet Take 1 tablet by mouth twice daily with meals. turmeric root extract 500 mg cap Take by mouth. 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 Hatch; surgery Dr. Calvo through [facility] Trochanteric bursitis of left hip 06/12/2012 Unspecified essential hypertension Social History Tobacco Use Smoking status: Never Smokeless tobacco: Never Substance Use Topics Alcohol use: No Component Latest Ref Rng & Units 08/11/2022 WBC 3.70 - 11.00 k/uL 6.05 RBC 3.90 - 5.20 m/uL 4.47 Hemoglobin 11.5 - 15.5 g/dL 13.9 Hematocrit 36.0 - 46.0 % 44.1 MCV 80.0 - 100.0 fL 98.7 MCH 26.0 - 34.0 pg 31.1 MCHC 30.5 - 36.0 g/dL 31.5 RDW-CV 11.5 - 15.0 % 12.3 Platelet Count 150 - 400 k/uL 259 MPV 9.0 - 12.7 fL 10.9 Neut% % 68.0 Abs Neut (ANC) 1.45 - 7.50 k/uL 4.11 Lymph% % 16.2 Abs Lymph 1.00 - 4.00 k/uL 0.98 (L) Young% % 10.2 Abs Young <0.87 k/uL 0.62 Eosin% % 3.8 Abs Eosin <0.46 k/uL 0.23 Baso% % 1.3 Abs Baso <0.11 k/uL 0.08 Immature Gran % % 0.5 IMMATURE GRANS (ABS) <0.10 k/uL 0.03 NRBC /100 WBC 0.0 Absolute nRBC <0.01 k/uL <0.01 DTYPE Auto Protein, Total 6.3 - 8.0 g/dL 6.6 Albumin 3.9 - 4.9 g/dL 4.4 Calcium 8.5 - 10.2 mg/dL 9.9 Bilirubin, Total 0.2 - 1.3 mg/dL 0.5 Alkaline Phosphatase 34 - 123 U/L 104 AST 13 - 35 U/L 32 ALT 7 - 38 U/L 32 Glucose 74 - 99 mg/dL 93 BUN 7 - 21 mg/dL 12 Creatinine 0.58 - 0.96 mg/dL 1.08 (H) Sodium 136 - 144 mmol/L 140 Potassium 3.7 - 5.1 mmol/L 4.4 Chloride 97 - 105 mmol/L 103 CO2 22 - 30 mmol/L 25 Anion Gap 9 - 18 mmol/L 12 eGFR >=60 mL/min/1.73m 53 (L) Vitamin B12 232 - 1,245 pg/mL 1,003 Folate >4.7 ng/mL >20.0 Vitamin D 25 Hydroxy 31.0 - 80.0 ng/mL 64.9 PTH, Intact 15 - 65 pg/mL 59 ASSESSMENT/PLAN: 1. Preop exam for internal medicine - ICD9: V72.83, ICD10: Z01.818 Exam, labs completed. No need for additional testing at this time. Preop form faxed. Internet was down on Tuesday, will send office note on Tuesday to Dr Valle. Lauren May APRN.DAMON Medical Decision Making: Problems: Moderate: 2+ stable chronic illnesses Data: Unique test(s) ordered: 2 Risk: Moderate: Decision on minor surgery w/ risk factors Medical Decision Making Level: 4 - Moderate documented in this encounter [facility] 08-11-2022 Miscellaneous Notes Will update labs for hypercalcemia and address slight macrocytosis (slightly elevated MCV) prior to surgery. Patient is scheduled 08/13/22 for Pre-Op Clearance. Is here today asking if needs to have labs completed prior to appointment. Pre-Op form does not indicate labs are needed. Please advise. documented in this encounter [facility] documented in this encounter [facility]-19[facility]23 Miscellaneous Notes* Telephone Encounter - Vania Weeks RN - 07/29/2022 4:30 PM EST Faxed orders to [facility] Mammography at # [phone]. * Telephone Encounter - Lauren May APRN.CNS - 07/29/2022 4:22 PM EST Reviewed mammogram report.Send orders to [facility] please. * Telephone Encounter - Ebony Giron LPN - 07/29/2022 2:30 PM EST Record and order request at nurses desk for review * Telephone Encounter - Lauren May APRN.CNS - 07/29/2022 2:03 PM EST Not clear, is an order needed? Filed in event it is needed. Obtain outside record when available. * Telephone Encounter - Joselin Li RN - 07/29/2022 11:12 AM EST Nicole from [facility] Mammogram department calls and states that patient had mammogram done at [facility] today. Nicole states that patient is going to need a new order for right breast diagnostic mammogram and rightbreast ultrasound if needed. Please fax orders to [phone]. Please review and advise, Joselin Li RN [facility] Miscellaneous Notes* Telephone Encounter - Lauren May APRN.CNS - 05/10/2022 7:13 AM EDT The 10-year ASCVD risk score (Isabelle DELEON, et al., 2019) is: 22.6% Values used to calculate the score: Age: 76 years Sex: Female Is Non- : No Diabetic: No Tobacco smoker: No Systolic Blood Pressure: 124 mmHg Is BP treated: Yes HDL Cholesterol: 73 mg/dL Total Cholesterol: 254 mg/dL Try diet and exercise for now, recheck 6 mos. If remains elevated consider medication. documented in [facility] encounter[facility] Evaluation note* Diagnosis Stage 3a chronic kidney disease (HCC)- Primary Primary hypertension Unspecified essential hypertension Vitamin D deficiency Unspecified vitamin D deficiency Hypercalcemia Hyperlipidemia, unspecified hyperlipidemia type documented in this encounter [facility] History of Present illness Narrative* Lauren May APRN.[place] PLANNER - 04/29/2022 2:00 PM EDT SUBJECTIVE: COLONOSCOPY due on 09/30/2004 DEPRESSION ASSESSMENT Never done ANNUAL PCP TEAM CHRONIC DISEASE VISIT due on 07/15/2021 SERUM CREATININE due on 04/17/2022 HPI Radha Benz is a 76 year old female. PMH significant for ACTIVE PROBLEM LIST Generalized Anxiety Disorder Essential Hypertension Ichthyosis Congenita Allergic Rhinitis Encounter for Long-Term (Current) Use of Medications Personal History of Malignant Melanoma of Skin Mass of Right Inguinal Region Bmi 28.0-28.9,Adult Ckd (Chronic Kidney Disease) Stage 3, Gfr 30-59 Ml/Min (Hcc) Cellulitis of Groin Golden (Acute Kidney Injury) (Hcc) Bilateral Leg Edema History of Malignant Neoplasm of Rectum Primary Osteoarthritis of Left Knee Status Post Left Knee Replacement Presents for routine follow up today. Plans on going to [employer]. To [facility] group. Seen by Dr. Ward for macular degeneration which is dry. Sees Dr. Min for cataracts both eyes, planned left eye cataract removal June 09. Blepharoplasty with Dr. Valle following this Notes her mood is stable on current medication No voiced SI HI. Notes feeling improved with fewer aches and pains on vitamin D. HTN: She is without report of headache, chest pain, palpitations, dyspnea, peripheral edema, orthopnea, fatigue and PND. 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 Review of Systems Constitutional: Negative. Respiratory: Negative. Cardiovascular: Negative. Psychiatric/Behavioral: Negative for decreased concentration and dysphoric mood. Objective BP 124/82 Pulse 67 Resp 16 Wt 81.2 kg (179 lb) SpO2 98% BMI 32.74 kg/m Physical Exam Vitals and nursing note reviewed. Constitutional: Appearance: Normal appearance. HENT: Head: Normocephalic and atraumatic. Eyes: Conjunctiva/sclera: Conjunctivae normal. Neck: Thyroid: No thyroid mass, thyromegaly or thyroid tenderness. Vascular: Normal carotid pulses. No carotid bruit or JVD. Cardiovascular: Rate and Rhythm: Normal rate and regular rhythm. Pulses: Carotid pulses are 2+ on the right side and 2+ on the left side. Radial pulses are 2+ on the right side and 2+ on the left side. Dorsalis pedis pulses are 2+ on the right side and 2+ on the left side. Heart sounds: Normal heart sounds. Pulmonary: Effort: Pulmonary effort is normal. Breath sounds: Normal breath sounds. Abdominal: General: Bowel sounds are normal. Palpations: Abdomen is soft. Musculoskeletal: Right lower leg: No edema. Left lower leg: No edema. Skin: General: Skin is warm and dry. Neurological: General: No focal deficit present. Mental Status: She is alert and oriented to person, place, and time. ALLERGIES Allergen Reactions Bactrim [Sulfametho* Other: See Comments Elevated Kidney function Dust Other: See Comments sneezing/watery eyes Trees Other: See Comments sneezing, watery eyes MEDICATIONS vit C/E/Zn/coppr/lutein/zeaxan (PRESERVISION AREDS-2 ORAL) Take by mouth. citalopram (CELEXA) 40 mg tablet Take 1 tablet by mouth once daily. carvedilol (COREG) 12.5 mg tablet Take 1 tablet by mouth twice daily with meals. Cholecalciferol, Vitamin D3, 50 mcg (2,000 unit) cap Take 2 capsules by mouth once daily. turmeric root extract 500 mg cap Take by mouth. fluticasone (FLONASE) 50 mcg/actuation nasal spray Use 2 Sprays in each nostril once daily. Rinse mouth after use. Fluocinolone-Hydroq.-Tretinoin (TRI-EDWINA) 0.01-4-0.05 % Apply pea size to face once daily spironolactone (ALDACTONE) 25 mg tablet Take 1 tablet by mouth twice daily. 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 Hatch; surgery Dr. Calvo through [facility] Trochanteric bursitis of left hip 06/12/2012 Unspecified essential hypertension Social History Tobacco Use Smoking status: Never Smokeless tobacco: Never Substance Use Topics Alcohol use: No Component Latest Ref Rng & Units 08/28/2020 04/17/2021 09/08/2021 WBC 3.70 - 11.00 k/uL 7.79 RBC 3.90 - 5.20 m/uL 4.65 Hemoglobin 11.5 - 15.5 g/dL 14.6 Hematocrit 36.0 - 46.0 % 46.3 (H) MCV 80.0 - 100.0 fL 99.6 MCH 26.0 - 34.0 pG 31.4 MCHC 30.5 - 36.0 g/dL 31.5 RDW-CV 11.5 - 15.0 % 12.5 Platelet Count 150 - 400 k/uL 266 MPV 9.0 - 12.7 fL 10.9 Neut% % 72.2 Abs Neut (ANC) 1.45 - 7.50 k/uL 5.63 Lymph% % 13.1 Abs Lymph 1.00 - 4.00 k/uL 1.02 Young% % 8.9 Abs Young <0.87 k/uL 0.69 Eosin% % 4.9 Abs Eosin <0.46 k/uL 0.38 Baso% % 0.9 Abs Baso <0.11 k/uL 0.07 Nucleated Reds 0 /100 WBC 0.0 Absolute nRBC <0.01 k/uL <0.01 Diff Type Auto Diff Protein, Total 6.3 - 8.0 g/dL 6.8 Albumin 3.9 - 4.9 g/dL 4.3 Calcium 8.5 - 10.2 mg/dL 9.9 10.6 (H) Bilirubin, Total 0.2 - 1.3 mg/dL 0.5 Alkaline Phosphatase 34 - 123 U/L 105 AST 13 - 35 U/L 29 Glucose 74 - 99 mg/dL 125 (H) 77 BUN 7 - 21 mg/dL 16 18 Creatinine 0.58 - 0.96 mg/dL 1.00 (H) 1.15 (H) Sodium 136 - 144 mmol/L 135 (L) 139 Potassium 3.7 - 5.1 mmol/L 3.8 4.4 Chloride 97 - 105 mmol/L 99 102 CO2 22 - 30 mmol/L 26 26 Anion Gap 9 - 18 mmol/L 10 11 ALT 7 - 38 U/L 23 eGFR- >60 56 eGFR-All Other Races . 54 46 Hemoglobin A1C 4.3 - 5.6 % 5.5 Estimated Average Glucose mg/dL 111 Normalized CAlcium 1.08 - 1.30 mmol/L 1.34 (H) Ionized Calcium 1.08 - 1.30 mmol/L 1.37 (H) Vitamin D 25 Hydroxy 31.0 - 80.0 ng/mL 87.0 (H) 62.2 ASSESSMENT/PLAN: 1. Primary hypertension - ICD9: 401.9, ICD10: I10 (primary diagnosis) - good control - Continue current medication(s) - Encourage dietary sodium restriction/DASH diet - Recommend regular aerobic exercise. - SPIRONOLACTONE 25 MG TABLET 2. Generalized anxiety disorder - ICD9: 300.02, ICD10: F41.1 Stable, currently controlled, continue to monitor. 3. Allergic rhinitis, unspecified seasonality, unspecified trigger - ICD9: 477.9, ICD10: J30.9 - FLUTICASONE PROPIONATE 50 MCG/ACTUATION NASAL SPRAY,SUSPENSION 4. Screening for colon cancer - ICD9: V76.51, ICD10: Z12.11 deferred, does not currently want to do follow up 5. Encounter for screening mammogram for breast cancer - ICD9: V76.12, ICD10: Z12.31 - Encouraged monthly BSE - FARZANEH SCREENING W RONN 6. Stage 3a chronic kidney disease (HCC) - ICD9: 585.3, ICD10: N18.31 - eGFR: Stable - Counseled on avoiding regular use of NSAIDs, adequate hydration, 7. Cataract of both eyes, unspecified cataract type - ICD9: 366.9, ICD10: H26.9 8. Macular degeneration, unspecified laterality, unspecified type - ICD9: 362.50, ICD10: H35.30 6 mo follow up MD Lauren Harden APRN.[place] PL[place]NER Medical Decision Making: Problems: Moderate: 2+ stable chronic illnesses Risk: Moderate: Drug management Medical Decision Making Level: 4 - Moderate documented [facility] Miscellaneous Notes* Telephone Encounter - Dolores Youngblood LPN - 04/12/2022 8:38 PM EDT Patient has been identified by name and date of : Yes Patient phones for refill(s): Requested Prescriptions Pending Prescriptions Disp Refills citalopram (CELEXA) 40 mg tablet 90 tablet 3 Sig: Take 1 tablet by mouth once daily. carvedilol (COREG) 12.5 mg tablet 180 tablet 3 Sig: Take 1 tablet by mouth twice daily with meals. Date of last office visit in primary care: 10/23/2021 6 month follow-up: 04/29/2022 Last 2 Encounter Wt Readings: Date: Wt: 10/23/2021 76.2 kg (168 lb) 10/20/2021 78.5 kg (173 lb) Previous labs/tests for medication: Blood Pressure: BUN (mg/dL) Date Value 04/17/2021 18 Sodium (mmol/L) Date Value 04/17/2021 139 Last 1 Encounter BP Readings: Date: BP: 10/23/2021 122/80 Please advise. Thank you. Dolores Youngblood LPN documented in this encounterA[facility]08-[facility]-2022 Miscellaneous Notes* Telephone Encounter - Faye Lazaro LPN - 02/25/2022 10:26 AM EDT My chart message to pt. * Telephone Encounter - Margo Mccall MD - 02/24/2022 7:25 PM EDT Would use 2000 units capsules instead and see if they will give more than 30 day supply at a time The following approved medication requests have been transmitted electronically. Requested Prescriptions Signed Prescriptions Disp Refills Cholecalciferol, Vitamin D3, 50 mcg (2,000 unit) cap 180 capsule 3 Sig: Take 2 capsules by mouth once daily. Authorizing Provider: MARGO MCCALL MD * Telephone Encounter - Dolores Youngblood LPN - 02/24/2022 9:54 AM EDT Patient has been identified by name and date of : Yes Patient phones for refill(s): Requested Prescriptions Pending Prescriptions Disp Refills cholecalciferol (VITAMIN D3) 1,000 unit tab tablet 360 tablet 3 Sig: Take 4 tablets by mouth once daily. Date of last office visit in primary care: 10/23/2021 6 month follow-up: 04/20/2022 Last 2 Encounter Wt Readings: Date: Wt: 10/23/2021 76.2 kg (168 lb) 10/20/2021 78.5 kg (173 lb) Previous labs/tests for medication: Not applicable Please advise. Thank you. Dolores Youngblood LPN documented in this encounterA[facility] System05-09-2022 Instructions* Patient Instructions* Lilian Figueroa APRN.NOA - 11/16/2021 12:32 PM EDT [facility] DERMATOLOGY DEPARTMENT Preventing harmful UV exposure is dailey to reducing your chances of skin cancer. Recommend avoiding unecessary sun exposure, seeking shade where possible, wearing protective clothing and applying sunscreen regularly. Avoid prolonged exposure to the sun between the hours of 10 AM and 2 PM when the sunis the strongest. Wear protective clothing when outside. (Hats, sunglasses, swim shirts) Some places to contact: [place] www.[employer] [phone] [employer] www.[facility] [phone] Sun*Day Afternoons [employer] [phone] [employer] www.[employer] [phone] Also available at [employer] and [employer] in season. Recommend daily use of Broad Spectrum sunscreen at least SPF 30 or higher. Sunscreen should be reapplied every 2 hours you are out in the sun. It should be reapplied every hour if you are sweating orswimming. This will help protect against sunburn, skin cancer and premature aging. Wear sunscreen that blocks UVA and UVB. Consider zinc oxide or titanium dioxide containing sunscreens that act as a barrier. Examples include: bluelizard sun blocks with titanium dioxide Reapply every 2 hours and after going into the water. Be sure to apply enough to cover the skin. Don't forget the ears on those with short hair. Monthly self-examinations are recommended. Should any moles change in size, shape or color, bleed or become tender, or if you see a spot that looks suspicious, please contact the office for evaluation sooner than your interval appointment. 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 Skin per HPI. No other new/concerning skin growth. Physical Exam: General: well appearing, of stated age, in no acute distress Neurology: alert and oriented times three Psychiatry: in a happy mood Cortez skin type: II A skin exam was done of the scalp, face including eyelids and lips, ears, neck, chest, back, abdomen, bilateral upper extremities including digits, bilateral lower extremities and digits, buttocks, except nails, except genitals. Auricular, submandibular, cervical, supraclavicular, axillary lymph nodes examined. Nail japanese to hands and feet Skin exam normal with the exception of: - unable to assess nails for atypia due to nail japanese to nails on both feet and hands - auricular, submandibular, cervical, supraclavicular, axillary lymph nodes negative for lymphadenopathy - Well-healed scars on the left upper lip and right calf with no evidence of recurrence - Densely scattered light olsen macules noted on all sun exposed areas - Regular and symmetric hyperpigmented macules throughout with regular pigment network under dermoscopy - Brown stuck on papules throughout - Small peralta red papules throughout Assessment and Plan: 1. History of Non-Melanoma Skin Cancer - Treatment sites are well healed and there is no evidence of recurrence. - Instructed patient to wear sunblock and sun protective clothing and monitor scars from treatment sites for any recurrences. - Patient instructed to notify the office with any changes. 2. Solar lentigines, Multiple benign nevi, Peralta angiomas, Seborrheic Keratoses - Reassurance on benign nature of lesions and recommend routine self-examinations. - Recommend high SPF sunscreens and reapplication. 3. Family history of melanoma - No lesions concerning for malignancy upon exam today. - The signs and symptoms of skin cancer were reviewed and the patient was advised to practice sun protection and sun avoidance, use daily sunscreen, and perform regular self skin exams. 4. Personal history of malignant melanoma of skin - No evidence of recurrence on exam today. Recommend routine exams with appropriate specialties forcontinued melanoma surveillance. Recommend full body skin exam every 3 months for the first 2 yearsafter diagnosis, then every 6 months for the next 5 years, then yearly for life. Recommend SPF 30 or higher daily on all sun exposed areas, reapplying as directed on packaging. Sunscreen (SPF 30 or higher). Sun protective clothing can be used in lieu of sunscreen but must be worn the entire time you are exposed to the sun's rays The ABCDEs of melanoma were reviewed with the patient and the importance of routine self-examination of moles was emphasized. Should any areas change in size, shape or color, bleed or become tender, the patient will contact the office for evaluation sooner than their interval appointment. Patient verbalizes understanding and agrees with treatment plan. Follow up in 1 year and PRN or sooner if something concerning arises. The documentation for this note was completed by Jorge Luis Hernández Ma acting as scribe for Lilian Figueroa APRN.CNP. November 16, 2021 10:56 AM. Jorge Luis Hernández Ma I agree with the Chief Complaint, ROS, and Past Histories independently gathered by the clinical it support engineer and the remaining scribed note accurately describes my personal service to the patient. Lilian Figueroa APRN.CNP November 16, 2021 documented in this encounterAcmc Healthcare System04-15-2022 History of Present illness Narrative* Lauren May APRN.CNS - 10/23/2021 7:20 AM EDT SUBJECTIVE: ADVANCE DIRECTIVE DISCUSSION Never done HPI Radha Benz is a 75 year old female. PMH significant for ACTIVE PROBLEM LIST Generalized Anxiety Disorder Essential Hypertension Ichthyosis Congenita Allergic Rhinitis Encounter for Long-Term (Current) Use of Medications Personal History of Malignant Melanoma of Skin Mass of Right Inguinal Region Bmi 28.0-28.9,Adult Ckd (Chronic Kidney Disease) Stage 3, Gfr 30-59 Ml/Min (Hcc) Cellulitis of Groin Golden (Acute Kidney Injury) ([facility]) Bilateral Leg Edema History of Malignant Neoplasm of Rectum Primary Osteoarthritis of Left Knee Status Post Left Knee Replacement Presents for routine follow up today. Notes URI is improving on current treatment. Notes her mood is stable on current medication No voiced SI HI. Notes feeling improved with fewer aches and pains on vitamin D. Has had Covid boosters, interested in 4th vaccine -Moderna. She is active. Notes she was in [place] when scheduled for follow up with Margo Mccall MD. Has had mammogram and BMD at [facility] since last here. 4 yr follow up BMD advised. Mammogram within normal limits. HTN: She is without report of headache, chest pain, palpitations, dyspnea, peripheral edema, orthopnea, fatigue and PND. 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 Review of Systems Constitutional: Negative. HENT: Positive for rhinorrhea and sinus pressure. Respiratory: Positive for cough. Cardiovascular: Negative. Psychiatric/Behavioral: Negative for decreased concentration and dysphoric mood. Objective BP 122/80 Pulse 60 Resp 16 Wt 76.2 kg (168 lb) BMI 30.73 kg/m Physical Exam Vitals and nursing note reviewed. Constitutional: Appearance: Normal appearance. HENT: Head: Normocephalic and atraumatic. Eyes: Conjunctiva/sclera: Conjunctivae normal. Neck: Thyroid: No thyroid mass, thyromegaly or thyroid tenderness. Vascular: Normal carotid pulses. No carotid bruit or JVD. Cardiovascular: Rate and Rhythm: Normal rate and regular rhythm. Pulses: Carotid pulses are 2+ on the right side and 2+ on the left side. Radial pulses are 2+ on the right side and 2+ on the left side. Dorsalis pedis pulses are 2+ on the right side and 2+ on the left side. Heart sounds: Normal heart sounds. Pulmonary: Effort: Pulmonary effort is normal. Breath sounds: Normal breath sounds. Abdominal: General: Bowel sounds are normal. Palpations: Abdomen is soft. Musculoskeletal: Right lower leg: No edema. Left lower leg: No edema. Skin: General: Skin is warm and dry. Neurological: General: No focal deficit present. Mental Status: She is alert and oriented to person, place, and time. ALLERGIES Allergen Reactions Bactrim [Sulfametho* Other: See Comments Elevated Kidney function Dust Other: See Comments sneezing/watery eyes Trees Other: See Comments sneezing, watery eyes MEDICATIONS amoxicillin-clavulanic acid (AUGMENTIN) 875-125 mg per tablet Take 1 tablet by mouth twice daily for 3 days. benzonatate (TESSALON PERLES) 100 mg capsule Take 2 capsules by mouth three times daily as needed. cholecalciferol (VITAMIN D3) 1,000 unit tab tablet Take 4 tablets by mouth once daily. citalopram (CELEXA) 40 mg tablet Take 1 tablet by mouth once daily. fluticasone (FLONASE) 50 mcg/actuation nasal spray Use 2 Sprays in each nostril once daily. Rinse mouth after use. Fluocinolone-Hydroq.-Tretinoin (TRI-EDWINA) 0.01-4-0.05 % Apply pea size to face once daily carvedilol (COREG) 12.5 mg tablet Take 1 tablet by mouth twice daily with meals. spironolactone (ALDACTONE) 25 mg tablet Take 1 tablet by mouth twice daily. BIOTIN ORAL Take 1 tablet by mouth once daily. PAST MEDICAL HISTORY Diagnosis Date Allergic rhinitis, cause unspecified Generalized anxiety disorder Ichthyosis congenita Malignant neoplasm of rectum (HCC) Resected in 2000 Melanoma of lower extremity 2012 breslow thickness at least 0.9 mm right calf--diagnosed Nov through Dr. Hatch; surgery Dr. Calvo through [facility] Trochanteric bursitis of left hip 06/12/2012 Unspecified essential hypertension Social History Tobacco Use Smoking status: Never Smoker Smokeless tobacco: Never Used Substance Use Topics Alcohol use: No Drug use: Not on file Component Latest Ref Rng & Units 08/28/2020 04/17/2021 09/08/2021 WBC 3.70 - 11.00 k/uL 7.79 RBC 3.90 - 5.20 m/uL 4.65 Hemoglobin 11.5 - 15.5 g/dL 14.6 Hematocrit 36.0 - 46.0 % 46.3 (H) MCV 80.0 - 100.0 fL 99.6 MCH 26.0 - 34.0 pG 31.4 MCHC 30.5 - 36.0 g/dL 31.5 RDW-CV 11.5 - 15.0 % 12.5 Platelet Count 150 - 400 k/uL 266 MPV 9.0 - 12.7 fL 10.9 Neut% % 72.2 Abs Neut (ANC) 1.45 - 7.50 k/uL 5.63 Lymph% % 13.1 Abs Lymph 1.00 - 4.00 k/uL 1.02 Young% % 8.9 Abs Young <0.87 k/uL 0.69 Eosin% % 4.9 Abs Eosin <0.46 k/uL 0.38 Baso% % 0.9 Abs Baso <0.11 k/uL 0.07 Nucleated Reds 0 /100 WBC 0.0 Absolute nRBC <0.01 k/uL <0.01 Diff Type Auto Diff Protein, Total 6.3 - 8.0 g/dL 6.8 Albumin 3.9 - 4.9 g/dL 4.3 Calcium 8.5 - 10.2 mg/dL 9.9 10.6 (H) Bilirubin, Total 0.2 - 1.3 mg/dL 0.5 Alkaline Phosphatase 34 - 123 U/L 105 AST 13 - 35 U/L 29 Glucose 74 - 99 mg/dL 125 (H) 77 BUN 7 - 21 mg/dL 16 18 Creatinine 0.58 - 0.96 mg/dL 1.00 (H) 1.15 (H) Sodium 136 - 144 mmol/L 135 (L) 139 Potassium 3.7 - 5.1 mmol/L 3.8 4.4 Chloride 97 - 105 mmol/L 99 102 CO2 22 - 30 mmol/L 26 26 Anion Gap 9 - 18 mmol/L 10 11 ALT 7 - 38 U/L 23 eGFR- >60 56 eGFR-All Other Races . 54 46 Hemoglobin A1C 4.3 - 5.6 % 5.5 Estimated Average Glucose mg/dL 111 Normalized CAlcium 1.08 - 1.30 mmol/L 1.34 (H) Ionized Calcium 1.08 - 1.30 mmol/L 1.37 (H) Vitamin D 25 Hydroxy 31.0 - 80.0 ng/mL 87.0 (H) 62.2 ASSESSMENT/PLAN:ASSESSMENT/PLAN: 1. Stage 3a chronic kidney disease (HCC) - ICD9: 585.3, ICD10: N18.31 (primary diagnosis) Stable,continue to monitor. 2. Essential hypertension - ICD9: 401.9, ICD10: I10 controlled - Continue current medication unchanged - Encourage dietary sodium restriction/DASH diet - Recommend regular aerobic exercise. 3. Generalized anxiety disorder - ICD9: 300.02, ICD10: F41.1 Stable, currently controlled, continue to monitor. No voiced SI, HI; feeling improved Refer to counseling if needed/so desires 4. Serum calcium elevated - ICD9: 275.42, ICD10: E83.52 near normal. Vitamin D level now normal. Ionized calcium slightly elevated - PTH INTACT BLD 6 mo follow up MD Lauren Harden APRN.LAND PLANNER Medical Decision Making: Problems: Moderate: 2+ stable chronic illnesses Data: Unique test(s) ordered: 1 Risk: Moderate: Drug management Medical Decision Making Level: 4 - Moderate documented in this encounterAcmc [facility] System04-15-2022 Evaluation note* Diagnosis Stage 3a chronic kidney disease (HCC)- Primary Essential hypertension Unspecified essential hypertension Generalized anxiety disorder Serum calcium elevated Hypercalcemia documented in this encounter [facility] History of Present illness Narrative* Karishma Herrera PA-C - 10/20/2021 3:19 PM EDT This note was created using Newslabsriter. Subjective Radha Benz is a 75 year old female. HPI Patient presents with his pressure and congestion over the past 2 weeks. She has had headaches off and on. She has had a cough but she thinks it is from postnasal drip. Denies chest pain or shortnessof breath. She tried some Mucinex DM [id number] as well as Flonase. Denies fever. No ear pain. She did take a Covid test at home which was negative. She does have a positive Covid test from July of this year as well. Review of Systems Constitutional: Negative. HENT: Positive for congestion, postnasal drip, sinus pressure and sinus pain. Negative for ear pain. Respiratory: Positive for cough. Negative for shortness of breath. Cardiovascular: Negative. Gastrointestinal: Negative. Genitourinary: Negative. Musculoskeletal: Negative. All other systems reviewed and are negative. PAST MEDICAL HISTORY Diagnosis Date Allergic rhinitis, cause unspecified Generalized anxiety disorder Ichthyosis congenita Malignant neoplasm of rectum (HCC) Resected in 2000 Melanoma of lower extremity 2011 breslow thickness at least 0.9 mm right calf--diagnosed May through Dr. Hatch; surgery Dr. Calvo through [facility] Trochanteric bursitis of left hip 06/12/2012 Unspecified essential hypertension Current Outpatient Medications Medication Sig Dispense Refill cholecalciferol (VITAMIN D3) 1,000 unit tab tablet Take 4 tablets by mouth once daily. 360 tablet 3 citalopram (CELEXA) 40 mg tablet Take 1 tablet by mouth once daily. 90 tablet 3 fluticasone (FLONASE) 50 mcg/actuation nasal spray Use 2 Sprays in each nostril once daily. Rinse mouth after use. 1 Each 11 Fluocinolone-Hydroq.-Tretinoin (TRI-EDWINA) 0.01-4-0.05 % Apply pea size to face once daily 30 g 0 carvedilol (COREG) 12.5 mg tablet Take 1 tablet by mouth twice daily with meals. 180 tablet 3 spironolactone (ALDACTONE) 25 mg tablet Take 1 tablet by mouth twice daily. 180 tablet 3 BIOTIN ORAL Take 1 tablet by mouth once daily. amoxicillin-clavulanic acid (AUGMENTIN) 875-125 mg per tablet Take 1 tablet by mouth twice daily for 7 days. 14 tablet 0 benzonatate (TESSALON PERLES) 100 mg capsule Take 2 capsules by mouth three times daily as needed. 30 capsule 0 No current facility-administered medications for this visit. PAST SURGICAL HISTORY Procedure Laterality Date PAST SURGICAL HISTORY OF STATUS POST ANTERIOR PROCTOSIGMOIDECTOMY FAMILY HISTORY Problem Relation Age of Onset Diabetes Mother Hypertension Mother other (hypothyroidism) Mother other (hypothyroidism) Daughter Coronary Artery Disease Father Social History Tobacco Use Smoking status: Never Smoker Smokeless tobacco: Never Used Substance Use Topics Alcohol use: No Drug use: Not on file Objective BP 118/80 Pulse 68 Temp 36.9 C (98.5 F) (Tympanic) Resp 18 Wt 78.5 kg (173 lb) SpO2 100% BMI 31.64 kg/m Physical Exam Vitals reviewed. Constitutional: Appearance: Normal appearance. HENT: Head: Normocephalic and atraumatic. Right Ear: Tympanic membrane, ear canal and external ear normal. Left Ear: Tympanic membrane, ear canal and external ear normal. Nose: Congestion present. Right Sinus: Maxillary sinus tenderness present. Left Sinus: Maxillary sinus tenderness present. Mouth/Throat: Lips: Helper. Mouth: Mucous membranes are moist. Pharynx: Oropharynx is clear. Cardiovascular: Rate and Rhythm: Normal rate and regular rhythm. Heart sounds: Normal heart sounds. Pulmonary: Effort: Pulmonary effort is normal. Breath sounds: Normal breath sounds. Musculoskeletal: Cervical back: Neck supple. Skin: General: Skin is warm and dry. Findings: No rash. Neurological: General: No focal deficit present. Mental Status: She is alert and oriented to person, place, and time. Assessment and Plan ASSESSMENT/PLAN: 1. Acute non-recurrent maxillary sinusitis - ICD9: 461.0, ICD10: J01.00 - Will begin treatment with Augmentin 875 mg PO BID for 7 days - Supportive care with plenty of fluids, rest, and analgesia prn. - Follow up in 3-5 days if symptoms persist or worsen. Karishma Herrera PA-C * Karishma Herrera PA-C - 10/20/2021 2:09 PM EDT This note was created using Newslabsriter. Subjective Radha Benz is a 75 year old female. HPI Review of Systems Objective BP 118/80 Pulse 68 Temp 36.9 C (98.5 F) (Tympanic) Resp 18 Wt 78.5 kg (173 lb) SpO2 100% BMI 31.64 kg/m Physical Exam Assessment and Plan documented in this encounterAcmc [facility] System04-12-2022 Instructions* Patient Instructions* Karishma Herrera PA-C - 10/20/2021 12:29 PM EDT claritin otc flonase otc documented in this encounterAcmc Healthcare System03-24-2022 Miscellaneous Notes* Telephone Encounter - Lauren May APRN.CNS - 10/01/2021 4:31 PM EDT She canceled her October appointment with Margo Mccall MD; no upcoming appointment scheduled. This needs to be rescheduled. If unable to get in with PCP in October then she could be seen by me then her PCP in 6 months. documented in this encounterAcmc [facility] System12-03-2012 History of Past illness Narrative* Problem Noted Date Resolved Date Trochanteric bursitis of left hip 06/12/2012 08/01/2019 documented as of this encounter (statuses as of 10/01/2021) [facility] Narrative* Problem Noted Date Resolved Date Trochanteric bursitis of left hip 06/12/2012 08/01/2019 documented as of this encounter (statuses as of 10/20/2021) [facility] of Past illness Narrative* Problem Noted Date Resolved Date Trochanteric bursitis of left hip 06/12/2012 08/01/2019 documented as of this encounter (statuses as of 10/23/2021) [facility] of [facility] illness Narrative* Problem Noted Date Resolved Date Trochanteric bursitis of left hip 06/12/2012 08/01/2019 documented as of this encounter (statuses as of 11/16/2021) [facility] Narrative* Problem Noted Date Resolved Date Trochanteric bursitis of left hip 06/12/2012 08/01/2019 documented as of this encounter (statuses as of 02/11/2022) [facility] Narrative* Problem Noted Date Resolved Date Trochanteric bursitis of left hip 06/12/2012 08/01/2019 documented as of this encounter (statuses as of 02/25/2022) [facility] Narrative* Problem Noted Date Resolved Date Trochanteric bursitis of left hip 06/12/2012 08/01/2019 documented as of this encounter (statuses as of 04/13/2022) [facility] Narrative* Problem Noted Date Resolved Date Trochanteric bursitis of left hip 06/12/2012 08/01/2019 documented as of this encounter (statuses as of 04/29/2022) [facility] Narrative* Problem Noted Date Resolved Date Trochanteric bursitis of left hip 06/12/2012 08/01/2019 documented as of this encounter (statuses as of 05/10/2022) [facility] Narrative* Problem Noted Date Resolved Date Trochanteric bursitis of left hip 06/12/2012 08/01/2019 documented as of this encounter (statuses as of 07/29/2022) [facility] Narrative* Problem Noted Date Resolved Date Trochanteric bursitis of left hip 06/12/2012 08/01/2019 documented as of this encounter (statuses as of 08/11/2022) [facility] Narrative* Problem Noted Date Resolved Date Trochanteric bursitis of left hip 06/12/2012 08/01/2019 documented as of this encounter (statuses as of 08/13/2022) [place] [address]-03-2012 History of Past illness Narrative* Problem Noted Date Resolved Date Trochanteric bursitis of left hip 06/12/2012 08/01/2019 documented as of this encounter (statuses as of 08/18/2022) [facility] Narrative* Problem Noted Date Resolved Date Trochanteric bursitis of left hip 06/12/2012 08/01/2019 documented as of this encounter (statuses as of 12/13/2022) [facility] Narrative* Problem Noted Date Resolved Date Trochanteric bursitis of left hip 06/12/2012 08/01/2019 documented as of this encounter (statuses as of 12/30/2022) [facility] Narrative* Problem Noted Date Diagnosed Date Resolved Date Trochanteric bursitis of left hip 06/12/2012 08/01/2019 documented as of this encounter (statuses as of 04/29/2023) [facility] Narrative* Problem Noted Date Diagnosed Date Resolved Date Trochanteric bursitis of left hip 06/12/2012 08/01/2019 documented as of this encounter (statuses as of 05/06/2023) [facility] Narrative* Problem Noted Date Diagnosed Date Resolved Date Trochanteric bursitis of left hip 06/12/2012 08/01/2019 documented as of this encounter (statuses as of 05/20/2023) [facility] Narrative* Problem Noted Date Diagnosed Date Resolved Date Trochanteric bursitis of left hip 06/12/2012 08/01/2019 documented as of this encounter (statuses as of 08/14/2023) [place] [address]-03-2012 History of Past illness Narrative* Problem Noted Date Diagnosed Date Resolved Date Trochanteric bursitis of left hip 06/12/2012 08/01/2019 documented as of this encounter (statuses as of 08/23/2023) [facility] Diagnosis Acute non-recurrent maxillary sinusitis- Primary documented in this encounter [facility]* Diagnosis Seborrheic keratoses- Primary Other seborrheic keratosis Multiple benign nevi Benign neoplasm of skin, site unspecified Peralta angioma Nevus, non-neoplastic Solar lentigo Other dyschromia Family history of malignant melanoma Family history of other specified malignant neoplasm Hx of nonmelanoma skin cancer Personal history of other malignant neoplasm of skin Personal history of malignant melanoma Personal history of malignant melanoma of skin Hx of malignant melanoma Personal history of malignant melanoma of skin [facility] Essential hypertension- Primary Unspecified essential hypertension [facility] encounter [facility] Diagnosis Generalized anxiety disorder Caregiver stress Other health problem within the family [facility] Primary hypertension- Primary Unspecified essential hypertension Generalized anxiety disorder Allergic rhinitis, unspecified seasonality, unspecified trigger Screening for colon cancer Special screening for malignant neoplasms, colon Encounter for screening mammogram for breast cancer Stage 3a chronic kidney disease (HCC) Cataract of both eyes, unspecified cataract type Macular degeneration, unspecified laterality, unspecified type documented [facility] Diagnosis Abnormal mammogram- Primary Abnormal mammogram, unspecified [facility] Diagnosis Preop exam for internal medicine- Primary Other specified pre-operative examination documented [facility] Diagnosis Abnormal mammogram- Primary Abnormal mammogram, unspecified [facility] Diagnosis Essential hypertension- Primary Unspecified essential hypertension Stage 3a chronic kidney disease (HCC) Vitamin D deficiency Unspecified vitamin D deficiency Dupuytren's contracture of right hand 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, unspecified type documented [facility] this [facility]* Diagnosis Trigger middle finger of right hand- Primary Trigger finger (acquired) Dupuytren's contracture of right hand Contracture of palmar fascia documented [facility] Diagnosis Hyperlipidemia, unspecified hyperlipidemia type- Primary Laboratory exam ordered as part of routine general medical examination Laboratory examination ordered as part of a routine general medical examination Vitamin D deficiency Unspecified vitamin D deficiency documented in [facility] Diagnosis Primary hypertension- Primary Unspecified essential hypertension Encounter for immunization Need for other specified prophylactic vaccination against single bacterial disease Essential hypertension Unspecified essential hypertension Generalized anxiety disorder Caregiver stress Other health problem within the family Obesity (BMI 30-39.9) Obesity, unspecified Vitamin D deficiency Unspecified vitamin D deficiency Stage 3a chronic kidney disease (HCC) Hyperlipidemia, unspecified hyperlipidemia type documented in this encounter [facility] Diagnosis Sinobronchitis- Primary Unspecified sinusitis (chronic) documented in this encounter [facility] for referral (narrative)* Diagnostic Procedure Only (Routine) - Pending Review Specialty Diagnoses / Procedures Referred By Guillermina arevalo Referred To Contact [facility] Diagnoses Encounter for screening mammogram for breast cancer Procedures FARZANEH SCREENING W RONN SCREENING DIGITAL BREAST TOMOSYNTHESIS BI SCREENING MAMMOGRAPHY BI 2-VIEW BREAST INC Lauren Martínez, ROOFING APPLICATOR.[employer] [address] [place] [address] [facility] [address] [place] [address] Referral ID Status Reason Start Date Expiration Date Visits Requested Visits Authorized [id number] Pending Review Auto-Generat ed Referral 05/29/2023 1 1 [facility] Diagnostic Procedure Only (Routine) - Pending Review Specialty Diagnoses / Procedures Referred By Contac t Referred To Contact [facility] Diagnoses Abnormal mammogram Procedures US BREAST LTD RT US BREAST UNI REAL TIME WITH IMAGE LIMITED Lauren May APRN.[employer] [address] [place] [address] [facility] [address] [place] [address] Referral ID Status Reason Start Date Expiration Date Visits Requested Visits Authorized [id number] Pending Review Auto-Generat ed Referral 07/29/2022 08/28/2023 1 1 * Diagnostic Procedure Only (Routine) - Pending Review Specialty Diagnoses / Procedures Referred By Guillermina arevalo Referred To Contact [facility] Diagnoses Abnormal mammogram Procedures FARZANEH DIAGNOSTIC RT DIAGNOSTIC MAMMOGRAPHY COMPUTER-AIDED DETCJ UNI Lauren May APRN.[employer] [address] [place] [address] [facility] [address] [place] [address] Referral ID Status Reason Start Date Expiration Date Visits Requested Visits Authorized [id number] Pending Review Auto-Generat ed Referral 07/29/2022 08/28/2023 1 1 [facility] Summary Purpose Family History No Family History Records FoundNo Family History Records Found Advance Directives No Advanced Directives Records FoundDocuments on File Type Date Recorded 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 Advance Directive(s) 08/22/2019 8:23 AM Latest Code Status on File Code Status Date Activated Date Inactivated Comments Full Code 08/24/2019 8:51 PM Documents on File Type Date Recorded 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 Advance Directive(s) 08/22/2019 8:23 AM Advance Directive(s) 08/22/2019 10:56 AM Advance Directive(s) 08/07/2019 10:54 AM S semaj 08-22-2019 Documents on File Type Date Recorded 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 Advance Directive(s) 08/22/2019 8:23 AM Latest Code Status on File Code Status Date Activated Date Inactivated Comments Full Code 08/24/2019 8:51 PM Latest Code Status on File Code Status Date Activated Date Inactivated Comments Full Code 08/24/2019 8:51 PM Hospital Course Note HNO ID: [id number] Author: Domingo mcintosh ([facility]) Grater Service: Orthopaedic Surgery Author Type: Nurse Practitioner Type: Discharge Summary Filed: 08/23/2019 1:44 PM Note Text: Attestation signed by Chetan Chao at 09/11/2019 10:38 AM Orthopaedic Staff Note Patient seen and examined, and I agree with the above note. Patient shows no signs or symptoms of a DVT or infection at this time. Chetan Chao MD DISCHARGE SUMMARY PATIENT NAME: Radha Benz ADMISSION DATE: 08/22/2019 DISCHARGE DATE: 08/23/2019 PATIENT DISCHARGE SUMMARY C O N F I D E N T I A L I N F O R M A T I O N The following is a brief overview of your hospitalization. Some of the information contained on this summary may be confidential. This information should be kept in your records and should be shared with your regular doctor. These instructions expl (more content not included)... Reason for Referral Specialty Diagnoses / Procedures Referred By Contac t Referred To Contact General Surgery Diagnoses Abnormal mammogram Procedures CONSULT TO GENERAL SURGERY OFFICE/OUTPATIENT [facility] 60-74 MINUTES Lauren May APRN.CNS [address] [place] [address] Referral ID Status Reason Start Date Expiration Date Visits Requested Visits Authorized [id number] Authorized PCP Requested Referral 08/17/2022 08/17/2023 1 1 Specialty Diagnoses / Procedures Referred By Contac t Referred To Contact Orthopedics Diagnoses Dupuytren's contracture of right hand Procedures CONSULT TO ORTHOPAEDICS OFFICE/OUTPATIENT [facility] 60-74 MINUTES Margo Mccall MD [address] [place] [id number] Freddy Freeman MD [address] [place] [id number] Referral ID Status Reason Start Date Expiration Date V isits Requested Visits Authorized [id number] Closed PCP Requested Referral 11/15/2022 11/15/2023 1 1 Medications Administered Section Inactive Administered Medications - up to 3 most recent administrations Medication Order MAR Action Action Date Dose Rate Site betamethasone acetate-betamethasone sodium phosphate 3 mg injection (CELESTONE) 3 mg, Injection - FOR ORTHO USE ONLY, ONE TIME INJECTION, 1 dose, Starting on Rochelle 12/02/22 at 0859, Until Rochelle 12/02/22 at 0859 Given 12/02/2022 8:59 AM EDT 3 mg Hand, Right lidocaine (PF) 10 mg/mL (1 %) 0.5 mL injection (XYLOCAINE) 0.5 mL, Injection - FOR ORTHO USE ONLY, ONE TIME INJECTION, 1 dose, Starting on Rochelle 12/02/22 at 0859, Until Rochelle 12/02/22 at 0859 Given 12/02/2022 8:59 AM EDT 0.5 mL Hand, Right Additional Source Comments INFORMATION SOURCE (unrecogn ized section and content) DATE CREATED AUTHOR AUTHOR'S ORGANIZ ATION 08/25/2023 [facility] Comments (unrecognize d section and content) In the event this informatio n is protected by the Federal Confidentiality of Alcohol and Drug Abuse Patient Records regulations: The Federal rules restrict any use of the information to criminally investigate or prosecute any alcohol or drug abuse patient.[facility] the event this information is protected by the Federal Confidentiality of Alcohol and Drug Abuse Patient Records regulations: The Federal rules restrict any use of the information to criminally investigate or prosecute any alcohol or drug abuse patient.[facility] System[facility] the event this information is protected by the Federal Confidentiality of Alcohol and Drug Abuse Patient Records regulations: The Federal rules restrict any use of the information to criminally investigate or prosecute any alcohol or drug abuse patient.[facility] System[facility] the event this information is protected by the Federal Confidentiality of Alcohol and Drug Abuse Patient Records regulations: The Federal rules restrict any use of the information to criminally investigate or prosecute any alcohol or drug abuse patient.[facility] System[facility] the event this information is protected by the Federal Confidentiality of Alcohol and Drug Abuse Patient Records regulations: The Federal rules restrict any use of the information to criminally investigate or prosecute any alcohol or drug abuse patient.[facility] System[facility] the event this information is protected by the Federal Confidentiality of Alcohol and Drug Abuse Patient Records regulations: The Federal rules restrict any use of the information to criminally investigate or prosecute any alcohol or drug abuse patient.[facility] System[facility] the event this information is protected by the Federal Confidentiality of Alcohol and Drug Abuse Patient Records regulations: The Federal rules restrict any use of the information to criminally investigate or prosecute any alcohol or drug abuse patient.[facility] System[facility] the event this information is protected by the Federal Confidentiality of Alcohol and Drug Abuse Patient Records regulations: The Federal rules restrict any use of the information to criminally investigate or prosecute any alcohol or drug abuse patient.[facility] System[facility] the event this information is protected by the Federal Confidentiality of Alcohol and Drug Abuse Patient Records regulations: The Federal rules restrict any use of the information to criminally investigate or prosecute any alcohol or drug abuse patient.[facility] System[facility] the event this information is protected by the Federal Confidentiality of Alcohol and Drug Abuse Patient Records regulations: The Federal rules restrict any use of the information to criminally investigate or prosecute any alcohol or drug abuse patient.[facility] System[facility] the event this information is protected by the Federal Confidentiality of Alcohol and Drug Abuse Patient Records regulations: The Federal rules restrict any use of the information to criminally investigate or prosecute any alcohol or drug abuse patient.[facility] System[facility] the event this information is protected by the Federal Confidentiality of Alcohol and Drug Abuse Patient Records regulations: The Federal rules restrict any use of the information to criminally investigate or prosecute any alcohol or drug abuse patient.[facility] System[facility] the event this information is protected by the Federal Confidentiality of Alcohol and Drug Abuse Patient Records regulations: The Federal rules restrict any use of the information to criminally investigate or prosecute any alcohol or drug abuse patient.[facility] SystemIn the event this information is protected by the Federal Confidentiality of Alcohol and Drug Abuse Patient Records regulations: The Federal rules restrict any use of the information to criminally investigate or prosecute any alcohol or drug abuse patient.[facility] SystemIn the event this information is protected by the Federal Confidentiality of Alcohol and Drug Abuse Patient Records regulations: The Federal rules restrict any use of the information to criminally investigate or prosecute any alcohol or drug abuse patient.[facility] System[facility] the event this information is protected by the Federal Confidentiality of Alcohol and Drug Abuse Patient Records regulations: The Federal rules restrict any use of the information to criminally investigate or prosecute any alcohol or drug abuse patient.[facility] System[facility] the event this information is protected by the Federal Confidentiality of Alcohol and Drug Abuse Patient Records regulations: The Federal rules restrict any use of the information to criminally investigate or prosecute any alcohol or drug abuse patient.[facility] SystemIn the event this information is protected by the Federal Confidentiality of Alcohol and Drug Abuse Patient Records regulations: The Federal rules restrict any use of the information to criminally investigate or prosecute any alcohol or drug abuse patient.[facility] System[facility] the event this information is protected by the Federal Confidentiality of Alcohol and Drug Abuse Patient Records regulations: The Federal rules restrict any use of the information to criminally investigate or prosecute any alcohol or drug abuse patient.[facility] SystemIn the event this information is protected by the Federal Confidentiality of Alcohol and Drug Abuse Patient Records regulations: The Federal rules restrict any use of the information to criminally investigate or prosecute any alcohol or drug abuse patient.[facility] Reason for Visit (unrecogniz ed section and content) Reason Comments Cough cough, congestion, s inus pressure and GAVIRIA x 2 weeks Reason Comments Follow Up Reason Comments Full Body Skin Check Reason Onset Date Comments Refill Request 02/23/2022 Reason Onset Date Comments Refill Request 04/12/2022 Reason Comments F/U 6 Month Reason Comments Mammogram Orders Reason Comments Pre-Op Exam prior labs? Reason Comments Results Mammogram Reason Comments New Referred by Dr. Mccall Specialty Diagnoses / Procedures Referred By Guillermina arevalo Referred To Contact Orthopedics Diagnoses Dupuytren's contracture of right hand Procedures CONSULT TO ORTHOPAEDICS OFFICE/OUTPATIENT NEW HIGH MDM 60-74 MINUTES Margo Mccall MD [address] [place] [address] Freddy Freeman MD [address] [place] [address] Referral ID Status Reason Start Date Expiration Date V isits Requested Visits Authorized [id number] Closed PCP Requested Referral 11/15/2022 11/15/2023 1 1 Reason Onset Date Comments Refill Request 04/29/2023 Reason Comments 6 Month Exam Reason Comments Cough Cough, congestion, s inus and right ear pressure x 2 weeks Reason Comments Orders Care Teams (unrecognized sec tion and content) Copier Field Service Technician Relationship Specialty Start Date End Date Margo Mccall MD [address] [place], [place] [id number] PCP - General 02/22/01 Chetan Chao MD [address] [address] Home Care Physician Orthopedics 08/23/19 Chetan Chao MD [address] [address] Referring Orthopedics 08/23/19 Eileen Malhotra, PT [address] [place] [address] Fruit Receiver Acute Care 08/23/19 Copier Field Service Technician Relationship Specialty Start Date End Date Margo Mccall MD [address] [place] [address] PCP - General 02/22/01 Chetan Chao MD [address] [place] [address] Home Care Physician Orthopedics 08/23/19 Chetan Chao MD [address] [place] [address] Referring Orthopedics 08/23/19 Eileen Malhotra, PT [address] [place] [address] Fruit Receiver Acute Care 08/23/19 Copier Field Service Technician Relationship Specialty Start Date End Date Margo Mccall MD [address] [place] [address] PCP - General 02/22/01 Chetan Chao MD [address] [place] [address] Home Care Physician Orthopedics 08/23/19 Chetan Chao MD [address] [place] [address] Referring Orthopedics 08/23/19 Eilene Malhotra, PT [address] [place] [address] Fruit Receiver Acute Care 08/23/19 Copier Field Service Technician Relationship Specialty Start Date End Date Margo Mccall MD [address] [place] [address] PCP - General 02/22/01 Chetan Chao MD [address] [address] Home Care Physician Orthopedics 08/23/19 Chetan Chao MD [address] [address] Referring Orthopedics 08/23/19 Eileen Malhotra, PT [address] [place] [address] Fruit Receiver Acute Care 08/23/19 Copier Field Service Technician Relationship Specialty Start Date End Date Margo Mccall MD [address] [place] [address] PCP - General 02/22/01 Chetan Chao MD [address] [address] Home Care Physician Orthopedics 08/23/19 Chetan Chao MD [address] [address] Referring Orthopedics 08/23/19 Eileen Malhotra, PT [address] [place] [address] Fruit Receiver Acute Care 08/23/19 Copier Field Service Technician Relationship Specialty Start Date End Date Margo Mccall MD [address] [place] [address] PCP - General 02/22/01 Chetan Chao MD [address] [address] Home Care Provider Orthopedics 08/23/19 Chetan Chao MD [address] [place] [address] Referring Orthopedics 08/23/19 Eileen Malhotra, PT [address] [place] [address] Fruit Receiver Acute Care 08/23/19 Copier Field Service Technician Relationship Specialty Start Date End Date Margo Mccall MD [address] [place] [address] PCP - General 02/22/01 Chetan Chao MD [address] [place] [address] Home Care Provider Orthopedics 08/23/19 Chetan Chao MD [address] [place] [address] Referring Orthopedics 08/23/19 Eileen Malhotra, PT [address] [place] [address] Fruit Receiver Acute Care 08/23/19 Copier Field Service Technician Relationship Specialty Start Date End Date Margo Mccall MD [address] [place] [address] PCP - General 02/22/01 Chetan Chao MD [address] [place] [address] Home Care Provider Orthopedics 08/23/19 Chetan Chao MD [address] [place] [address] Referring Orthopedics 08/23/19 Eileen Malhotra, PT [address] [place] [address] Fruit Receiver Acute Care 08/23/19 Copier Field Service Technician Relationship Specialty Start Date End Date Margo Mccall MD [address] [place] [address] PCP - General 02/22/01 Chetan Chao MD [address] [address] Home Care Provider Orthopedics 08/23/19 Chetan Chao MD [address] [address] Referring Orthopedics 08/23/19 Eileen Malhotra, PT [address] [place] [address] Fruit Receiver Acute Care 08/23/19 Copier Field Service Technician Relationship Specialty Start Date End Date Margo Mccall MD [address] [place] [address] PCP - General 02/22/01 Chetan Chao MD [address] [address] Home Care Provider Orthopedics 08/23/19 Chetan Chao MD [address] [address] Referring Orthopedics 08/23/19 Eileen Malhotra, PT [address] [place] [address] Fruit Receiver Acute Care 08/23/19 Copier Field Service Technician Relationship Specialty Start Date End Date Margo Mccall MD [address] [place] [address] PCP - General 02/22/01 Chetan Chao MD [address] [place] [address] [place] [address] Home Care Provider Orthopedics 08/23/19 Chetan Chao MD [address] [address] Referring Orthopedics 08/23/19 Eileen Malhotra, PT [address] [place] [address] Fruit Receiver Acute Care 08/23/19 Copier Field Service Technician Relationship Specialty Start Date End Date Margo Mccall MD [address] [place] [address] PCP - General 02/22/01 Chetan Chao MD [address] [address] Home Care Provider Orthopedics 08/23/19 Chetan Chao MD [address] [address] Referring Orthopedics 08/23/19 Eileen Malhotra, PT [address] [place] [address] Fruit Receiver Acute Care 08/23/19 Copier Field Service Technician Relationship Specialty Start Date End Date Margo Mccall MD [address] [place] [address] PCP - General 02/22/01 Chetan Chao MD [address] [address] Home Care Provider Orthopedics 08/23/19 Chetan Chao MD [address] [address] Referring Orthopedics 08/23/19 Eileen Malhotra, PT [address] [place] [address] Fruit Receiver Acute Care 08/23/19 Copier Field Service Technician Relationship Specialty Start Date End Date Margo Mccall MD [address] [place] [address] PCP - General 02/22/01 Chetan Chao MD [address] [address] Home Care Provider Orthopedics 08/23/19 Chetan Chao MD [address] [address] Referring Orthopedics 08/23/19 Eileen Malhotra, PT [address] [place] [address] Fruit Receiver Acute Care 08/23/19 Copier Field Service Technician Relationship Specialty Start Date End Date Margo Mccall MD [address] [place] [address] PCP - General 02/22/01 Chetan Chao MD [address] [address] Home Care Provider Orthopedics 08/23/19 Chetan Chao MD [address] [address] Referring Orthopedics 08/23/19 Eileen Malhotra, PT [address] [place] [address] Fruit Receiver Acute Care 08/23/19 Copier Field Service Technician Relationship Specialty Start Date End Date Margo Mccall MD [address] [place] [address] PCP - General 02/22/01 Chetan Chao MD [address] [address] Home Care Provider Orthopedics 08/23/19 Chetan Chao MD [facility] [address] [address] Referring Orthopedics 08/23/19 Eileen Malhotra, PT [address] [place] [address] Fruit Receiver Acute Care 08/23/19 Copier Field Service Technician Relationship Specialty Start Date End Date Margo Mccall MD [address] [place] [address] PCP - General 02/22/01 Chetan Chao MD [facility] [address] [address] Home Care Provider Orthopedics 08/23/19 Chetan Chao MD [address] [place] [address] Referring Orthopedics 08/23/19 Copier Field Service Technician Relationship Specialty Start Date End Date Margo Mccall MD [address] [place] [address] PCP - General 02/22/01 Chetan Chao MD [address] [place] [address] Home Care Provider Orthopedics 08/23/19 Chetan Chao MD [address] [address] Referring Orthopedics 08/23/19 Copier Field Service Technician Relationship Specialty Start Date End Date Margo Mccall MD [address] [place] [address] PCP - General 02/22/01 Chetan Chao MD [address] [address] Home Care Provider Orthopedics 08/23/19 Chetan Chao MD [address] [place] [address] Referring Orthopedics 08/23/19 FOR RECORDS PERTAINING TO PATIENTS WHO ARE OR HAVE BEEN ENROLLED IN A CHEMICAL DEPENDENCY/SUBSTANCEABUSE PROGRAM, SOME INFORMATION MAY BE OMITTED. This clinical summary was aggregated from multiple sources. Caution should be exercised in using it in the provision of clinical care. This summary normalizes information from multiple sources, and as a consequence, information in this document may materially change the coding, format and clinical context of patient data. In addition, data may be omitted in some cases. CLINICAL DECISIONS SHOULD BE BASED ON THE PRIMARY CLINICAL RECORDS. [employer] provides no warranty or guarantee of the accuracy or completeness of information in this document.
== END | disposition home or self-care (01) ==
PROVIDERS: PCP Internal Medicine; Referring Provider Surgery; Visit Provider Surgery
DX: Z12.31 Encounter for screening mammogram for malignant neoplasm of breast (principal)
CPT/HCPCS: 77063; 77067

== ENCOUNTER → 2024-10-02 | Outpatient (CLI) | payer MEDICARE, OTHER, SELFPAY ==
--- NOTE | 2024-10-02 15:23 | BI_ITS ---
EXAM: SCRN MAMM (CAD)W/RONN BILAT 10/02/2024 CLINICAL HISTORY: F, Age 78 y/o , SCREENING BREAST CANCER RISK ASSESSMENT: Has not been calculated. TECHNIQUE: Bilateral screening digital breast tomosynthesis with 2D images. Computer aided detection. COMPARISON: Prior exam(s) dated 09/02/2023 and 08/26/2022 . FINDINGS: TISSUE DENSITY: The breast tissue is composed of scattered area of fibroglandular density. Bilateral Breast Mammographic Findings: There are no other dominant masses, areas of architectural distortion, or suspicious calcifications in either breast. Benign round calcifications and punctate calcifications are seen in both breasts. Benign vascular calcifications are seen in both breasts. A radiopaque clip is seen in the superior outer aspect of the right breast. The biopsy was benign. Post biopsy site appears stable.. BI/SCRN MAMM (CAD)W/RONN BILAT IMPRESSION: Right Breast: BIRADS 2 BENIGN FINDING. Left Breast: BIRADS 2 BENIGN FINDING. OVERALL FINAL ASSESSMENT: BIRADS 2 BENIGN FINDING RECOMMENDATION: Routine annual follow-up in 1 Year A letter with findings and recommendations will be mailed to the patient. Reading Location: [id number]
== END | disposition home or self-care (01) ==
LOC: OPBI 15:21
PROVIDERS: PCP Internal Medicine; Referring Provider Internal Medicine; Visit Provider Internal Medicine
DX: Z12.31 Encounter for screening mammogram for malignant neoplasm of breast (principal)
CPT/HCPCS: 77063; 77067

== ENCOUNTER → 2024-12-05 | Outpatient (CLI) | payer MEDICARE, OTHER, SELFPAY ==
--- NOTE | 2024-12-05 08:00 | BD_ITS ---
PROCEDURE: DEXA BONE DENSITY STUDY 12/05/2024 REASON FOR EXAM: F, age 79 y/o . Postmenopausal. TECHNIQUE: DXA scan of sites with data reported below. REFERENCE LINKS: [facility] Adult Positions COMPARISON: Prior study dated July 28, 2021. FINDINGS: BMD and T-SCORES Lumbar spine: 1.253 g/cm2, T-score 1.9 Levels: L1 through L4 Change from prior: Improvement of 4.2%. Left femoral neck: 0.848 g/cm2, T-score 0.0 Femoral neck comparison data not recommended for monitoring change. Left total hip: 0.950 g/cm2, T-score 0.1 Change from prior: Improvement by 4.9%. Right femoral neck: 0.790 g/cm2, T-score -0.5 Femoral neck comparison data not recommended for monitoring change. Right total hip: 0.941 g/cm2, T-score 0.3 Change from prior: Improvement of 0.7%. The World Health Organization has defined the following categories based on bone density: Normal bone density: T-score equal to or greater than -1.0 Osteopenia: T-score between -1.0 and -2.5 Osteoporosis: T-score equal to or less than -2.5 The patient does meet the pharmacological treatment recommendations for prevention of osteoporosis. BD/Dexa Bone Density Study IMPRESSION: NORMAL T-SCORES. Recommend follow-up as clinically warranted. Reading Location: [place] [address]
== END | disposition home or self-care (01) ==
LOC: OPBD 07:55
PROVIDERS: PCP Internal Medicine; Referring Provider Internal Medicine; Visit Provider Internal Medicine
DX: Z78.0 Asymptomatic menopausal state (principal)
CPT/HCPCS: 77080